=== PATIENT | male | born 1950 | race Caucasian/White ===

== ENCOUNTER 2022-04-10 12:03 | Emergency (ER) | payer BC, MEDICARE, SELFPAY ==
[2022-04-10 12:08] VITALS: BP 158/71; PULSE 79; RESP 15; TEMP 36.8; O2SAT 96; BMI 27.6
[2022-04-10 13:05] LABS: Influenza A - CEPHEID Flu A NEGATIVE (NEGATIVE); Influenza B - CEPHEID Flu B NEGATIVE (NEGATIVE); Respiratory Syncytial Virus POSITIVE (Negative)
[2022-04-10 13:11] LABS: COVID-19 CEPHEID 4-PLEX PCR Negative (Negative)
--- NOTE | 2022-04-10 14:23 | ED_ITS ---
HPI - URI/Sore Throat <Hoa Resendiz, [facility] - Last Filed: 04/10/22 14:28> General Chief Complaint: Upper Respiratory Symptoms Stated Complaint: cough/nausea/head pain x3 days Time Seen by Provider: 04/10/22 12:08 Source: patient Mode of arrival: Ambulatory History of Present Illness HPI Narrative: This is a 72-year-old male with history of pneumonia 3 times, states that he has felt ?like garbage ?for the last 3 days and is concerned that he might have an upper respiratory infection from his grandson. Patient is here with his daughter, states he has a history of hypertension, is not anticoagulated. States that he is otherwise healthy and has had a cough, nausea and a headache for the last 3 days. He denies vomiting, he denies chest pain or shortness of breath, he states that he feels more tired than usual and is coughing frequently, has nasal congestion without sinus tenderness, no difficulty swallowing, is a nonsmoker, denies any lightheadedness or dizziness. Denies any abdominal pain, dysuria, or weakness. He denies fevers but is dressed in a jacket with 2 shirts underneath and sitting in the sun and feels warm to touch he was afebrile 2-1/2 hours ago when he was triaged. Related Data Home Medications Medication Instructions Recorded Confirmed atenolol 25 mg tablet 25 mg PO BID 02/25/22 terazosin 2 mg capsule 2 mg PO BID 02/25/22 Previous Rx's Medication Instructions Recorded amlodipine 10 mg tablet 10 mg PO DAILY #60 tabs 04/08/22 famotidine 40 mg tablet 40 mg PO BID #60 tabs 04/08/22 hydrocodone 10 mg-acetaminophen 1 tab PO BID PRN pain #60 tabs 04/08/22 325 mg tablet lisinopril 20 mg tablet 20 mg PO DAILY #60 tabs 04/08/22 lisinopril 40 mg tablet 40 mg PO DAILY #60 tabs 04/08/22 albuterol sulfate 2.5 mg/3 mL 2.5 mg (3 mL) inhalation Q6H PRN 04/10/22 (0.083 %) solution for nebulization shortness of breath or wheezing #75 mL cetirizine 10 mg tablet 10 mg PO DAILY PRN allergy 04/10/22 symptoms #30 tabs prednisone 20 mg tablet 40 mg PO DAILY 5 days #10 tabs 04/10/22 Allergies Allergy/AdvReac Type Severity Reaction Status Date / Time Penicillins Allergy Verified 04/10/22 12:08 anti inflammatories Allergy Uncoded 04/10/22 12:08 Review of Systems <REBECCA Holm - Last Filed: 04/10/22 14:28> Review of Systems Narrative: Review of systems is negative for acute abnormalities unless otherwise noted in HPI Patient History <REBECCA Holm - Last Filed: 04/10/22 14:28> Social History Smoking Status: Unknown if ever smoked Smoking Status: Unknown if ever smoked alcohol intake frequency: holidays/special occasions only Substance Use Type: does not use Exam <REBECCA Holm - Last Filed: 04/10/22 14:28> Narrative Exam Narrative: Reviewed vitals signs and nursing notes. General: cooperative, comfortable, in no acute distress, well groomed, over demond ssed for sitting in the sun any jacket, 2 shirts, is warm to touch, HEENT: symmetrical facial expressions, moist mucous membranes, congested, endorses productive cough, no upper airway noise or stridor, posterior pharynx with mild erythema Cardiovascular: mildly tachycardic with a rate in the mid 90s, S1-S2 without murmur no peripheral edema, warm extremities Respiratory: normal effort, able to speak in complete sentences, without wheezing, stridor, or abnormal breath sounds. No retractions or tachypnea. Patient does have a cough, lightly wet, breath sounds anterior and the posteriorly are clear GI: abdomen soft, nontender to palpation, nondistended, without masses, rebound tenderness or exquisite tenderness with exam. MSK: moves all extremities, neurovascularly intact, no weakness, normal tone Skin: brisk capillary refill, without pallor or erythema Neuro: normal speech and cognition, A&O x3, ambulatory, clear speech Psych: mental status is grossly normal, congruent mood, normal affect, pleasant and cooperative Initial Vital Signs Initial Vital Signs: Vital Signs Temperature 98.3 F 04/10/22 12:08 Pulse Rate 79 04/10/22 12:08 Respiratory Rate 15 04/10/22 12:08 Blood Pressure 158/71 H 04/10/22 12:08 Pulse Oximetry 96 04/10/22 12:08 Oxygen Delivery Method 04/10/22 12:08 <Unique Luke MD - Last Filed: 04/11/22 18:33> Initial Vital Signs Initial Vital Signs: Vital Signs Temperature 98.3 F 04/10/22 12:08 Pulse Rate 79 04/10/22 12:08 Respiratory Rate 15 04/10/22 12:08 Blood Pressure 158/71 H 04/10/22 12:08 Pulse Oximetry 96 04/10/22 12:08 Oxygen Delivery Method 04/10/22 12:08 Course <REBECCA Holm - Last Filed: 04/10/22 14:28> Orders Ordered: ED Orders 04/10/22 12:12 Covid-19 + FLU A/B + RSV - PCR Stat Vital Signs Vital signs: Vital Signs - 8 hr 04/10/22 12:08 Temperature 98.3 F Pulse Rate 79 Respiratory Rate 15 Blood Pressure 158/71 H Pulse Oximetry 96 Oxygen Delivery Method Room Air <Unique Luke MD - Last Filed: 04/11/22 18:33> Orders Ordered: ED Orders 04/10/22 12:12 Covid-19 + FLU A/B + RSV - PCR Stat Vital Signs Vital signs: Vital Signs - 8 hr 04/10/22 12:08 Temperature 98.3 F Pulse Rate 79 Respiratory Rate 15 Blood Pressure 158/71 H Pulse Oximetry 96 Oxygen Delivery Method Room Air MDM - URI/Sore Throat <REBECCA Holm - Last Filed: 04/10/22 14:28> Lab Data Labs: Lab Results 04/10/22 Range/Units 12:12 SARS-CoV-2 (PCR) Negative (Negative) Influenza A (RT-PCR) Flu a negative (NEGATIVE) Influenza B (RT-PCR) Flu b negative (NEGATIVE) RSV (PCR) Positive A (Negative) MDM Narrative Medical decision making narrative: This is a 72-year-old male who presents to the emergency department with a cough, congestion, nausea, and headache for the last 3 days. He is nontoxic appearing, without hypoxia, tachypnea, abnormal breath sounds, weakness, or shortness of breath. His respiratory panel is positive for RSV. Patient's daughter states that his grandson had RSV last week patient states he is staying well hydrated. Has a cough, breath sounds are clear throughout without wheezing or increased effort. Patient is concerned about his history with pneumonia, states that he has not nebulizer machine at home and he has been using his albuterol nebulizer which has helped him. I refilled his albuterol nebulizer, gave him a prescription of prednisone for the next 5 days, Zyrtec, encouraged hydration, antipyretics, discuss dosing of his Tylenol to match his hydrocodone so that he does not overdose on Tylenol. He has an allergy to NSAIDs and this is another reason why I opted to treat him with prednisone. He has Flonase at home as well as Mucinex, we will be treating his symptoms accordingly and understands to return to the emergency department for any worsening. Patient is appropriate and amenable to discharge home. Vital signs are stable on repeat examination is unremarkable. Patient has been informed of results. Patient has been given strict return to ER precautions for any new or worsening symptoms. Patient understands to follow up closely with outpatient providers as instructed. Patient understands plan and agrees to discharge home. All questions and concerns answered at this time. <Unique Luke MD - Last Filed: 04/11/22 18:33> Lab Data Labs: Lab Results 04/10/22 Range/Units 12:12 SARS-CoV-2 (PCR) Negative (Negative) Influenza A (RT-PCR) Flu a negative (NEGATIVE) Influenza B (RT-PCR) Flu b negative (NEGATIVE) RSV (PCR) Positive A (Negative) Discharge Plan Departure Patient Disposition: Home Clinical Impression: RSV infection Instructions: DI for Respiratory Syncytial Virus -- Adults Activity Restrictions/Additional Instructions: *You have been diagnosed with RSV I have refilled your albuterol nebulizers, use your [place] as needed for your pain, please take a total of 650 mg of Tylenol every 6 hours, your [place] has 325 mg in it. Please stay hydrated, use Mucinex for productive cough, Flonase for congestion, and start taking Zyrtec in the evening for congestion and runny nose. Schedule a follow-up appointment with her primary care provider as needed, come back to the emergency department if you have worsening, your symptoms should start to resolve in the next day or 2. Please come back if you have fever, chills, concern for pneumonia. Please clear your sinuses as best as you can, use saline nasal spray and I hope that you feel better soon. *What to do: *Please continue to take your regular medications as directed. [ x] New medication prescriptions sent to your pharmacy: [[facility] ] [ ] New medication written as a paper prescription [ ] No new medications given *Please follow up with your primary care provider in 2-3 days, call for an appointment. Let them know you were seen in the Emergency Department and that we asked that you be seen for follow-up. We will electronically transmit a record of today's note if your PCP is in our system *If you do not have a primary care provider please contact [phone] to establish care with one of the [facility] primary care providers. *Return to Emergency Department if you should have any new, worsening, or conc erning symptoms, such as [fever greater than 101F, chills, worsening pain, persistent vomiting or other bothersome symptoms]. Prescriptions: New albuterol sulfate 2.5 mg /3 mL (0.083 %) solution for nebulization 2.5 mg inhalation Q6H PRN (Reason: shortness of breath or wheezing) Qty: 75 1RF prednisone 20 mg tablet 40 mg PO DAILY 5 Days Qty: 10 0RF cetirizine 10 mg tablet 10 mg PO DAILY PRN (Reason: allergy symptoms) Qty: 30 0RF No Action atenolol 25 mg tablet 25 mg PO BID terazosin 2 mg capsule 2 mg PO BID famotidine 40 mg tablet 40 mg PO BID Qty: 60 0RF lisinopril 40 mg tablet 40 mg PO DAILY Qty: 60 0RF Rx Instructions: 20 mg in the am and 40 mg in the evening lisinopril 20 mg tablet 20 mg PO DAILY Qty: 60 0RF amlodipine 10 mg tablet 10 mg PO DAILY Qty: 60 0RF hydrocodone-acetaminophen 10-325 mg tablet 1 tab PO BID PRN (Reason: pain) Qty: 60 0RF Visit Report Forms: Patient Portal/API <Unique Luke MD - Last Filed: 04/11/22 18:33> [facility] Attestation: I was immediately available in the department for consultation throughout this patient's visit. I agree with documentation as above. Unique Luke MD
== END 2022-04-10 14:24 | disposition home or self-care (01) ==
PROVIDERS: Emergency Medicine; Emergency Provider Nurse Practitioner Critical Care Medicine
DX: J06.9 Acute upper respiratory infection, unspecified (principal); B97.4 Respiratory syncytial virus as the cause of diseases classified elsewhere
CPT/HCPCS: 0241U; 99281; 99282

== ENCOUNTER 2022-04-15 16:54 | Observation (INO) | payer BC, SELFPAY ==
[2022-04-15] VITALS (28 sets, daily range): BP systolic 111–193; BP diastolic 56–88; PULSE 73–99; RESP 18–29; TEMP 37.3–39.7; O2SAT 90–96; BMI 27.6
--- NOTE | 2022-04-15 17:28 | DI.RAD.S_ITS ---
PROCEDURE: XR CHEST 1V INDICATIONS: suspected sepsis TECHNIQUE: One view of the chest was acquired. COMPARISON: None. FINDINGS: Surgical changes and devices: None. Lungs and pleura: Bilateral interstitial infiltrates suspicious for interstitial pneumonia. No pleural effusions or pneumothorax. Mediastinum: Mediastinal contours appear normal. Heart size is normal. Bones and chest wall: Old left 6th rib fracture is noted. No suspicious bony lesions. Overlying soft tissues appear unremarkable. IMPRESSION: Bilateral interstitial infiltrates suspicious for interstitial pneumonia. Dictated by: Lizzy Gan M.D. on 04/15/2022 at 18:37 Approved by: Lizzy Gan M.D. on 04/15/2022 at 18:37
[2022-04-15] MEDS: ACETAMINOPHEN 325 MG TABLET 975 MG PO (17:34)
[2022-04-15 18:07] LABS: INR 1.2 (0.9-1.3); Prothrombin Time 13.5 SECONDS (10.1-12.7)
[2022-04-15 18:09] LABS: PTT Partial Thromboplastin Tim 31 SECONDS (26-36)
[2022-04-15 18:11] LABS: Lactate (Lactic Acid) 1.5 mmol/L (0.7-2.1)
[2022-04-15 18:12] LABS: Alanine Aminotransferase 25 IU/L (<50); Albumin Globulin Ratio 1.1 (1.0-2.8); Alkaline Phosphatase 57 U/L (38-126); Aspartate Aminotransferase 19 IU/L (17-59); BUN Creatinine Ratio 14.3 (6-22); Bilirubin Total 0.5 mg/dL (0.2-1.3); Blood Urea Nitrogen 11 mg/dL (9-20); Carbon Dioxide 25 mmol/L (22-32); Chloride 99 mmol/L (98-107); Estimated Glomerular Filt Rate > 60 mL/min (>60); Globulin 3.6 g/dL (1.7-4.1); Glucose 133 mg/dL (80-110); HEMOLYSIS 16 (0-50); Lipase 49 U/L (23-300); Potassium 3.4 mmol/L (3.4-5.1); Sodium 136 mmol/L (137-145); Total Protein 7.6 g/dL (6.3-8.2)
[2022-04-15 18:23] LABS: Add Manual Diff / Slide Review NO; Basophils Absolute Auto 0 /uL (0-100); Basophils Percent Auto 0.4 % (0-2); Eosinophils Absolute Auto 100 /uL (0-450); Eosinophils Percent Auto 0.8 % (2-4); Hematocrit 38.3 % (41-53); Hemoglobin 13.1 g/dL (13.5-17.5); Lymphocytes Absolute Auto 1200 /uL (1100-4500); Mean Corpuscular HGB Conc 34.2 % (30-36); Mean Corpuscular Hemoglobin 30.4 PG (26-34); Mean Corpuscular Volume 88.8 fL (80-100); Monocytes Absolute Auto 900 /uL (0-900); Monocytes Percent Auto 8.6 % (3-14); Neutrophils Absolute Auto 8000 /uL (1500-7000); Neutrophils Percent Auto 78.2 % (50-75); Platelet Count 194 X10^3/uL (150-400); Red Blood Cell Count 4.31 X10^6/uL (4.5-5.9); White Blood Cell Count 10.2 X10^3/uL (4.5-11.0)
[2022-04-15 18:29] LABS: Procalcitonin 0.06 ng/mL (<0.5)
[2022-04-15 19:26] LABS: Influenza A - CEPHEID Flu A NEGATIVE (NEGATIVE); Influenza B - CEPHEID Flu B NEGATIVE (NEGATIVE); Respiratory Syncytial Virus POSITIVE (Negative)
[2022-04-15 19:27] LABS: COVID-19 CEPHEID 4-PLEX PCR Negative (Negative)
--- NOTE | 2022-04-15 19:28 | PC.NURSE ---
pt lying on stretcher appears tired, c/o eyes being matted, white matting noted in eyes, pt without further c/o at this time daughter at bedside pt waiting results and disposition
--- NOTE | 2022-04-15 19:56 | ED_ITS ---
HPI - General Adult General Chief complaint: Fever Stated complaint: RSV is getting worse Time Seen by Provider: 04/15/22 19:23 Source: patient Mode of arrival: Ambulatory History of Present Illness HPI narrative: 72-year-old gentleman with history of mild COPD, hypertension, reflux was recently diagnosed with RSV and over the last 7 days he is had cough however today things have gotten significantly worse and he describes a ?weird feeling? in his chest that he noticed as of this morning with increasing chills and productive cough over the course of the day. He is having some mild diarrhea. This evening he is noticing discharge from both eyes. He states it is wheezing seems to be a bit worse and his cough is clearly now productive. He notes that when he does get viruses he does tend to get pneumonias, was admitted to the [facility] about a year ago for similar findings. He describes fatigue but no significant headache, no palpitations. Notes that his left leg has chronically been more swollen than the right for a number of years with no etiology clearly identified with workup as an outpatient. He is had no acute neurologic changes and complains of overall fatigue. Related Data Home Medications Medication Instructions Recorded Confirmed atenolol 25 mg tablet 25 mg PO BID 02/25/22 terazosin 2 mg capsule 2 mg PO BID 02/25/22 Previous Rx's Medication Instructions Recorded amlodipine 10 mg tablet 10 mg PO DAILY #60 tabs 04/08/22 famotidine 40 mg tablet 40 mg PO BID #60 tabs 04/08/22 hydrocodone 10 mg-acetaminophen 1 tab PO BID PRN pain #60 tabs 04/08/22 325 mg tablet lisinopril 20 mg tablet 20 mg PO DAILY #60 tabs 04/08/22 lisinopril 40 mg tablet 40 mg PO DAILY #60 tabs 04/08/22 albuterol sulfate 2.5 mg/3 mL 2.5 mg (3 mL) inhalation Q6H PRN 04/10/22 (0.083 %) solution for nebulization shortness of breath or wheezing #75 mL cetirizine 10 mg tablet 10 mg PO DAILY PRN allergy 04/10/22 symptoms #30 tabs Allergies Allergy/AdvReac Type Severity Reaction Status Date / Time Penicillins Allergy Verified 04/10/22 12:08 anti inflammatories Allergy Uncoded 04/10/22 12:08 Review of Systems Review of Systems Narrative: Remainder of complete review of systems is otherwise unremarkable except for that included in the HPI. Patient History Medical History Acid reflux Arthritis BPH (benign prostatic hyperplasia) Emphysema (subcutaneous) (surgical) resulting from a procedure Hypertension Lung nodule Macular degeneration Social History Smoking Status: Unknown if ever smoked Smoking Status: Unknown if ever smoked alcohol intake frequency: holidays/special occasions only Substance Use Type: does not use Exam Initial Vital Signs Initial Vital Signs: Vital Signs Temperature 103.5 F H 04/15/22 17:25 Pulse Rate 97 H 04/15/22 17:25 Respiratory Rate 18 04/15/22 17:25 Blood Pressure 193/88 H 04/15/22 17:25 Pulse Oximetry 96 04/15/22 17:25 Oxygen Delivery Method 04/15/22 17:25 General: Moderately ill-appearing but Able to give a complete and coherent history. HEENT: Moist mucous membranes, mild discharge from both eyes with minimally injected sclera bilaterally. Neck: No JVD, supple Respiratory: Lungs with minor scattered wheeze, coarse breath sounds, no obvious rhonchi or consolidated findings. Cardiac: Regular rate and rhythm no murmurs no bruits Abdomen: Soft, nontender, good bowel tones, no flank pain Skin: Warm and dry, no rashes Neurologic: Globally weak but Grossly neurologically intact with no obvious asymmetries or abnormalities Extremities: No trauma, well perfused. Left leg significantly more swollen than right, chronic finding Psych: Fatigued but overall Cooperative, appropriate insight and affect Course Orders Ordered: ED Orders 04/15/22 17:28 XR chest 1V Stat EKG-12 Lead Stat RT Consult Eval and Treat NOW 04/15/22 17:45 BNP [NT-proBNP (BNP-Adult 18+)] Stat Complete Blood Count AUTO DIFF Stat Comprehensive Metabolic Panel Stat D Dimer Stat Lactate (Lactic Acid) Stat Lipase Stat Partial Thromboplastin Time Stat Procalcitonin Stat Prothrombin Time INR Stat Trop I [Troponin I] Stat 04/15/22 18:15 Blood Culture Stat 04/15/22 18:25 Blood Culture Stat Covid-19 + FLU A/B + RSV - PCR Stat 04/15/22 21:46 Sputum Culture Stat 04/15/22 21:49 CT angio chest PE protocol Stat Discontinued Medications Acetaminophen (Acetaminophen 325 Mg Tablet) 975 mg PO NOW ONE Stop: 04/15/22 17:31 Last Admin: 04/15/22 17:34 Dose: 975 mg Documented By: AMALIA Epinephrine HCl (Epinephrine 1 Mg/Ml) 0.3 mg IM NOW ONE Stop: 04/15/22 20:14 Last Admin: 04/15/22 21:07 Dose: Not Given Documented By: JOE Azithromycin 500 mg/ Dextrose 250 mls @ 250 mls/hr IV NOW ONE Stop: 04/15/22 19:58 Last Infusion: 04/15/22 23:23 Dose: 0 mls/hr Documented By: Admin: 04/15/22 21:58 Dose: 250 mls/hr Documented By: SKYLER Ceftriaxone Sodium 2,000 mg/ (Sodium Chloride) 100 mls @ 200 mls/hr IV NOW ONE Stop: 04/15/22 19:58 Last Infusion: 04/15/22 21:30 Dose: 0 mls/hr Documented By: Admin: 04/15/22 20:52 Dose: 200 mls/hr Documented By: JOE Midazolam HCl 50 mg/ Dextrose 250 mls @ 25 mls/hr IV TITRATE LADAN; Protocol Last Admin: 04/15/22 22:56 Dose: Not Given Documented By: SKYLER Vital Signs Vital signs: Vital Signs - 8 hr 04/15/22 17:25 04/15/22 17:34 04/15/22 18:19 Temperature 103.5 F H 103.5 F H Pulse Rate 97 H 99 H Respiratory Rate 18 Blood Pressure 193/88 H Pulse Oximetry 96 94 Oxygen Delivery Method Room Air 04/15/22 18:20 04/15/22 18:20 04/15/22 18:30 Temperature Pulse Rate 98 H Respiratory Rate 24 Blood Pressure 153/69 H 131/60 Pulse Oximetry 94 Oxygen Delivery Method 04/15/22 18:30 04/15/22 18:45 04/15/22 18:45 Temperature Pulse Rate 91 H 88 Respiratory Rate 20 19 Blood Pressure 132/66 Pulse Oximetry 92 91 Oxygen Delivery Method Room Air 04/15/22 19:00 04/15/22 19:00 04/15/22 19:28 Temperature 99.2 F Pulse Rate 85 Respiratory Rate 25 H Blood Pressure 118/59 L Pulse Oximetry 90 L Oxygen Delivery Method Room Air 04/15/22 19:57 04/15/22 19:15 04/15/22 19:15 Temperature 99.2 F Pulse Rate 82 Respiratory Rate 21 Blood Pressure 137/69 Pulse Oximetry 92 Oxygen Delivery Method 04/15/22 19:30 04/15/22 19:30 04/15/22 19:45 Temperature Pulse Rate 84 Respiratory Rate 22 Blood Pressure 135/65 125/69 Pulse Oximetry 92 Oxygen Delivery Method 04/15/22 19:45 04/15/22 20:00 04/15/22 20:00 Temperature Pulse Rate 79 73 Respiratory Rate 26 H 29 H Blood Pressure 129/63 Pulse Oximetry 91 91 Oxygen Delivery Method 04/15/22 20:15 04/15/22 20:15 04/15/22 20:30 Temperature Pulse Rate 86 Respiratory Rate 20 Blood Pressure 125/71 124/63 Pulse Oximetry 93 Oxygen Delivery Method 04/15/22 20:30 04/15/22 20:45 04/15/22 20:45 Temperature Pulse Rate 79 80 Respiratory Rate 21 21 Blood Pressure 133/65 Pulse Oximetry 92 92 Oxygen Delivery Method 04/15/22 21:00 04/15/22 21:00 04/15/22 21:15 Temperature Pulse Rate 78 Respiratory Rate 20 Blood Pressure 128/66 117/56 L Pulse Oximetry 92 Oxygen Delivery Method 04/15/22 21:15 04/15/22 21:30 04/15/22 21:30 Temperature Pulse Rate 76 79 Respiratory Rate 28 H 25 H Blood Pressure 111/58 L Pulse Oximetry 91 92 Oxygen Delivery Method 04/15/22 21:51 04/15/22 22:00 04/15/22 22:15 Temperature Pulse Rate 83 80 79 Respiratory Rate Blood Pressure Pulse Oximetry 95 93 94 Oxygen Delivery Method 04/15/22 22:30 04/15/22 22:45 04/15/22 23:00 Temperature Pulse Rate 78 78 87 Respiratory Rate Blood Pressure Pulse Oximetry 91 92 92 Oxygen Delivery Method 04/15/22 23:15 04/15/22 23:30 Temperature Pulse Rate 85 81 Respiratory Rate Blood Pressure Pulse Oximetry 94 92 Oxygen Delivery Method Medical Decision Making Lab Data Result diagrams: 04/15/22 17:45 04/15/22 17:45 Labs: Lab Results 04/15/22 04/15/22 04/15/22 Range/Units 17:45 17:45 17:45 WBC 10.2 (4.5-11.0) X10^3/uL RBC 4.31 L (4.5-5.9) X10^6/uL Hgb 13.1 L (13.5-17.5) g/dL Hct 38.3 L (41-53) % MCV 88.8 (80-100) fL MCH 30.4 (26-34) PG MCHC 34.2 (30-36) % RDW 13.0 (11.6-14.8) % Plt Count 194 (150-400) X10^3/uL Neut % (Auto) 78.2 H (50-75) % Lymph % (Auto) 12.0 L (25-40) % [place] % (Auto) 8.6 (3-14) % Eos % (Auto) 0.8 L (2-4) % Baso % (Auto) 0.4 (0-2) % Neut # (Auto) 8000 H (8995-0823) /uL Lymph # (Auto) 1200 (7157-8269) /uL [place] # (Auto) 900 (0-900) /uL Eos # (Auto) 100 (0-450) /uL Baso # (Auto) 0 (0-100) /uL PT 13.5 H (10.1-12.7) SECONDS INR 1.2 (0.9-1.3) APTT 31 (26-36) SECONDS D-Dimer (<500) ng/ml Sodium 136 L (137-145) mmol/L Potassium 3.4 (3.4-5.1) mmol/L Chloride 99 (98-107) mmol/L Carbon Dioxide 25 (22-32) mmol/L BUN 11 (9-20) mg/dL Creatinine 0.77 (0.66-1.25) mg/dL Estimated GFR > 60 (>60) mL/min BUN/Creatinine Ratio 14.3 (6-22) Glucose 133 H (80-110) mg/dL Lactate (0.7-2.1) mmol/L Calcium 9.0 (8.4-10.2) mg/dL Total Bilirubin 0.5 (0.2-1.3) mg/dL AST 19 (17-59) IU/L ALT 25 (<50) IU/L Alkaline Phosphatase 57 (38-126) U/L Troponin I (0.01-0.034) ng/mL NT-Pro-B Natriuret Pep (<125) pg/mL Total Protein 7.6 (6.3-8.2) g/dL Albumin 4.0 (3.5-5.0) g/dL Globulin 3.6 (1.7-4.1) g/dL Albumin/Globulin Ratio 1.1 (1.0-2.8) Lipase 49 (23-300) U/L Procalcitonin 0.06 (<0.5) ng/mL SARS-CoV-2 (PCR) (Negative) Influenza A (RT-PCR) (NEGATIVE) Influenza B (RT-PCR) (NEGATIVE) RSV (PCR) (Negative) 04/15/22 04/15/22 04/15/22 Range/Units 17:45 17:45 17:45 WBC (4.5-11.0) X10^3/uL RBC (4.5-5.9) X10^6/uL Hgb (13.5-17.5) g/dL Hct (41-53) % MCV (80-100) fL MCH (26-34) PG MCHC (30-36) % RDW (11.6-14.8) % Plt Count (150-400) X10^3/uL Neut % (Auto) (50-75) % Lymph % (Auto) (25-40) % [place] % (Auto) (3-14) % Eos % (Auto) (2-4) % Baso % (Auto) (0-2) % Neut # (Auto) (4563-4107) /uL Lymph # (Auto) (7064-0179) /uL [place] # (Auto) (0-900) /uL Eos # (Auto) (0-450) /uL Baso # (Auto) (0-100) /uL PT (10.1-12.7) SECONDS INR (0.9-1.3) APTT (26-36) SECONDS D-Dimer 882 H (<500) ng/ml Sodium (137-145) mmol/L Potassium (3.4-5.1) mmol/L Chloride (98-107) mmol/L Carbon Dioxide (22-32) mmol/L BUN (9-20) mg/dL Creatinine (0.66-1.25) mg/dL Estimated GFR (>60) mL/min BUN/Creatinine Ratio (6-22) Glucose (80-110) mg/dL Lactate 1.5 (0.7-2.1) mmol/L Calcium (8.4-10.2) mg/dL Total Bilirubin (0.2-1.3) mg/dL AST (17-59) IU/L ALT (<50) IU/L Alkaline Phosphatase (38-126) U/L Troponin I < 0.012 (0.01-0.034) ng/mL NT-Pro-B Natriuret Pep 680 H (<125) pg/mL Total Protein (6.3-8.2) g/dL Albumin (3.5-5.0) g/dL Globulin (1.7-4.1) g/dL Albumin/Globulin Ratio (1.0-2.8) Lipase (23-300) U/L Procalcitonin (<0.5) ng/mL SARS-CoV-2 (PCR) (Negative) Influenza A (RT-PCR) (NEGATIVE) Influenza B (RT-PCR) (NEGATIVE) RSV (PCR) (Negative) 04/15/22 Range/Units 18:25 WBC (4.5-11.0) X10^3/uL RBC (4.5-5.9) X10^6/uL Hgb (13.5-17.5) g/dL Hct (41-53) % MCV (80-100) fL MCH (26-34) PG MCHC (30-36) % RDW (11.6-14.8) % Plt Count (150-400) X10^3/uL Neut % (Auto) (50-75) % Lymph % (Auto) (25-40) % [place] % (Auto) (3-14) % Eos % (Auto) (2-4) % Baso % (Auto) (0-2) % Neut # (Auto) (6535-5434) /uL Lymph # (Auto) (3346-4681) /uL [place] # (Auto) (0-900) /uL Eos # (Auto) (0-450) /uL Baso # (Auto) (0-100) /uL PT (10.1-12.7) SECONDS INR (0.9-1.3) APTT (26-36) SECONDS D-Dimer (<500) ng/ml Sodium (137-145) mmol/L Potassium (3.4-5.1) mmol/L Chloride (98-107) mmol/L Carbon Dioxide (22-32) mmol/L BUN (9-20) mg/dL Creatinine (0.66-1.25) mg/dL Estimated GFR (>60) mL/min BUN/Creatinine Ratio (6-22) Glucose (80-110) mg/dL Lactate (0.7-2.1) mmol/L Calcium (8.4-10.2) mg/dL Total Bilirubin (0.2-1.3) mg/dL AST (17-59) IU/L ALT (<50) IU/L Alkaline Phosphatase (38-126) U/L Troponin I (0.01-0.034) ng/mL NT-Pro-B Natriuret Pep (<125) pg/mL Total Protein (6.3-8.2) g/dL Albumin (3.5-5.0) g/dL Globulin (1.7-4.1) g/dL Albumin/Globulin Ratio (1.0-2.8) Lipase (23-300) U/L Procalcitonin (<0.5) ng/mL SARS-CoV-2 (PCR) Negative (Negative) Influenza A (RT-PCR) Flu a negative (NEGATIVE) Influenza B (RT-PCR) Flu b negative (NEGATIVE) RSV (PCR) Positive A (Negative) Imaging Data Chest x-ray: Radiologist's Impression: FINDINGS:? ? Surgical changes and devices:? None.? ? Lungs and pleura:? Bilateral interstitial infiltrates suspicious for interstitial pneumonia.? No pleural effusions or pneumothorax.? ? Mediastinum:? Mediastinal contours appear normal.? Heart size is normal.? ? Bones and chest wall:? Old left 6th rib fracture is noted.? No suspicious bony lesions.? Overlying soft tissues appear unremarkable.? ? IMPRESSION:? Bilateral interstitial infiltrates suspicious for interstitial pneumonia. ? ? Dictated by: Lizzy Gan M.D. on 04/15/2022 at 18:37 ? ? CT PE study: Radiologist's Impression: FINDINGS:? Image quality:? Excellent.? ? Pulmonary arteries:? Pulmonary arteries demonstrate no intraluminal filling defects to suggest central pulmonary embolism.? ? Lower Neck: No lymphadenopathy by size criteria. Thyroid:? Visualized thyroid demonstrates no discrete nodules. Axillae: No lymphadenopathy by size criteria. Chest Wall:? Unremarkable.? Bones: Visualized osseous structures demonstrate no suspicious lesions. ? Lungs and Airways:? There are moderate centrilobular and paraseptal emphysematous changes.? Bilateral patchy areas of indistinct ground-glass opacity are demonstrated with a basilar predominance.? Findings likely represent pneumonia.? There is a small nodule with mildly spiculated margins in the left lower lobe adjacent to the major fissure measuring 0.7 cm on series 5, image 152. An additional left lower lobe nodule measuring up to 0.7 cm is also demonstrated on series 5, image 161.? There is mild bronchial wall thickening also demonstrated in the lung bases.? The trachea and central airways are patent. Pleura: No pneumothorax or pleural effusions.? ? Heart: Heart size is normal.? No pericardial effusion. Thoracic Vessels: The thoracic aorta is normal in size.? Mediastinum and Mally:? There are mildly enlarged mediastinal and hilar lymph nodes including a right hilar node measuring up to 1.4 cm in short axis on series 4, image 79. Esophagus: No wall thickening. No hiatal hernia. ? Abdomen:? Visualized upper abdomen demonstrates multiple calcified gallstones in the region of the gallbladder neck.? No associated gallbladder wall thickening or pericholecystic fluid. ? IMPRESSION:? ? 1. No evidence of pulmonary embolism. ? 2. Bilateral patchy areas of indistinct ground-glass opacity most likely represents pneumonia.? The differential includes inflammatory processes such as hypersensitivity pneumonitis. ? 3. Small left lower lobe pulmonary nodules.? The findings are nonspecific and may also reflect an infectious or inflammatory process but a neoplasm cannot be excluded.? Recommend follow-up CT in 6 months to demonstrate resolution or stability. ? 4. Moderate centrilobular and paraseptal emphysematous changes. ? 5. Cholelithiasis within the visualized upper abdomen without CT evidence of cholecystitis.? ? ? Dictated by: Jose Morris M.D. on 04/15/2022 at 22:53 ? ? MDM Narrative Medical decision making narrative: 72-year-old gentleman with recent RSV infection getting dramatically worse. Chest x-ray does suggest pneumonia alternate explanations including congestive heart failure, acute coronary syndrome, pulmonary embolism ruled out. There is no evidence of pneumothorax. Of note he does have a small left lower lobe pulmonary nodule with mildly spiculated margins. Patient was aware that he had a large mediastinal lymph node and they have been following this as an outpatient. With the worsening bacterial superinfection symptoms including newly productive cough, increasing fever increasing shortness of breath at the end of 2 weeks of RSV, I would like to admit him for bacterial pneumonia. His curb 65 score is 2 however he is overall weak and seems to be worsening rather than improving at this point. There are no signs of overt sepsis, severe r espiratory failure and I do not anticipate the need for intubation this evening.. Care is reviewed with the hospitalist service and patient will be admitted for treatment of his post viral bacterial pneumonia Discharge Plan Departure Patient Disposition: Admitted as Observation Clinical Impression: RSV infection, Bacterial pneumonia Admit Date/Time: 04/15/22 23:44 Admit Provider: Ja Andino
[2022-04-15 20:19] LABS: D Dimer 882 ng/ml (<500)
[2022-04-15 20:34] LABS: NT-proBNP (BNP-Adult 18+) 680 pg/mL (<125); Troponin I < 0.012 ng/mL (0.01-0.034)
[2022-04-15] MEDS: cefTRIAXone 2,000 MG in SODIUM CHLORIDE 0.9% 100 ML 200 MG IV (20:52)
--- NOTE | 2022-04-15 21:49 | DI.CT.S_ITS ---
PROCEDURE: CT ANGIO CHEST PE PROTOCOL INDICATIONS: cough, dyspnea, elevated d dimer TECHNIQUE: After the administration of intravenous contrast, 2 mm thick sections acquired from the pulmonary apices to the posterior costophrenic angles. 3-dimensional maximum intensity projection (MIP) coronal and sagittal reformats were then acquired through the thorax. For radiation dose reduction, the following was used: automated exposure control, adjustment of mA and/or kV according to patient size. COMPARISON: [facility], CR, XR CHEST 1V, 04/15/2022, 17:42. FINDINGS: Image quality: Excellent. Pulmonary arteries: Pulmonary arteries demonstrate no intraluminal filling defects to suggest central pulmonary embolism. Lower Neck: No lymphadenopathy by size criteria. Thyroid: Visualized thyroid demonstrates no discrete nodules. Axillae: No lymphadenopathy by size criteria. Chest Wall: Unremarkable. Bones: Visualized osseous structures demonstrate no suspicious lesions. Lungs and Airways: There are moderate centrilobular and paraseptal emphysematous changes. Bilateral patchy areas of indistinct ground-glass opacity are demonstrated with a basilar predominance. Findings likely represent pneumonia. There is a small nodule with mildly spiculated margins in the left lower lobe adjacent to the major fissure measuring 0.7 cm on series 5, image 152. An additional left lower lobe nodule measuring up to 0.7 cm is also demonstrated on series 5, image 161. There is mild bronchial wall thickening also demonstrated in the lung bases. The trachea and central airways are patent. Pleura: No pneumothorax or pleural effusions. Heart: Heart size is normal. No pericardial effusion. Thoracic Vessels: The thoracic aorta is normal in size. Mediastinum and Mally: There are mildly enlarged mediastinal and hilar lymph nodes including a right hilar node measuring up to 1.4 cm in short axis on series 4, image 79. Esophagus: No wall thickening. No hiatal hernia. Abdomen: Visualized upper abdomen demonstrates multiple calcified gallstones in the region of the gallbladder neck. No associated gallbladder wall thickening or pericholecystic fluid. IMPRESSION: 1. No evidence of pulmonary embolism. 2. Bilateral patchy areas of indistinct ground-glass opacity most likely represents pneumonia. The differential includes inflammatory processes such as hypersensitivity pneumonitis. 3. Small left lower lobe pulmonary nodules. The findings are nonspecific and may also reflect an infectious or inflammatory process but a neoplasm cannot be excluded. Recommend follow-up CT in 6 months to demonstrate resolution or stability. 4. Moderate centrilobular and paraseptal emphysematous changes. 5. Cholelithiasis within the visualized upper abdomen without CT evidence of cholecystitis. Dictated by: Jose Morris M.D. on 04/15/2022 at 22:53 Approved by: Jose Morris M.D. on 04/15/2022 at 23:09
[2022-04-15] MEDS: AZITHROMYCIN 500 MG in DEXTROSE 5% IN WATER 250 ML 250 MG IV (21:58)
[2022-04-16] VITALS (16 sets, daily range): BP systolic 122–166; BP diastolic 64–79; PULSE 63–101; RESP 16–20; TEMP 36.2–37.7; O2SAT 93–96; BMI 27.6
--- NOTE | 2022-04-16 00:25 | PM.HP.1 ---
History of Present Illness History of Present Illness Date Patient Seen: 04/16/22 Time Patient Seen: 12:30 Chief complaint: RSV is getting worse Narrative: Mr. Luna is a 72M with PMH COPD, previous smoker, HTN, who presents to the hospital with cough and shortness of breath. He presented to the hospital nearly a week ago with cough, chills, and was found to be RSV positive. He was able to be discharged and took steroids and nebulizers at home. He has not improved. He continues to have cough, worsening shortness of breath. Also notes intermittent diarrhea and discharged from both eyes. No chest pain. No abdominal pain or vomiting In the ED workup was done, vitals notable for temperature 103.5. Sats in the low 90s on room air. Labs notable for WBC 10.2, hgb 13.1, plts 94. Creatinine 0.77. Procal 0.06. Trop negative. Chest xray with bilateral interstitial infiltrates. CT chest with bilateral ground glass opacities and lung nodule. He was given antibiotics and admitted for further treatment. Family history: Father with COPD Patient History Medical History Acid reflux Arthritis BPH (benign prostatic hyperplasia) Emphysema (subcutaneous) (surgical) resulting from a procedure Hypertension Lung nodule Macular degeneration Family & Social History Safety & Behavioral: Feels Safe in Current Yes Environment Been Physically Hurt or No Threatened By a Person Tobacco & Substance use: Smoking Status Unknown if ever smoked alcohol intake frequency holiday/special occasion Substance Use Type does not use Meds Home Medications and Allergies Home Medications Medication Instructions Recorded Confirmed Type atenolol 25 mg tablet 25 mg PO BID 02/25/22 History terazosin 2 mg capsule 2 mg PO BID 02/25/22 History amlodipine 10 mg tablet 10 mg PO DAILY #60 tabs 04/08/22 Rx famotidine 40 mg tablet 40 mg PO BID #60 tabs 04/08/22 Rx hydrocodone 10 mg-acetaminophen 1 tab PO BID PRN pain #60 tabs 04/08/22 Rx 325 mg tablet lisinopril 20 mg tablet 20 mg PO DAILY #60 tabs 04/08/22 Rx lisinopril 40 mg tablet 40 mg PO DAILY #60 tabs 04/08/22 Rx albuterol sulfate 2.5 mg/3 mL 2.5 mg (3 mL) inhalation Q6H PRN 04/10/22 Rx (0.083 %) solution for nebulization shortness of breath or wheezing #75 mL cetirizine 10 mg tablet 10 mg PO DAILY PRN allergy 04/10/22 Rx symptoms #30 tabs Allergies Allergy/AdvReac Type Severity Reaction Status Date / Time Penicillins Allergy Verified 04/10/22 12:08 anti inflammatories Allergy Uncoded 04/10/22 12:08 Review of Systems Review of Systems Narrative: 14 systems reviewed and negative aside from what is noted in HPI Exam Vital Signs (past 8 hours): - 04/15/22 17:25 04/15/22 17:34 04/15/22 18:19 Temperature 103.5 F H 103.5 F H Pulse Rate 97 H 99 H Respiratory Rate 18 Blood Pressure 193/88 H Pulse Oximetry 96 94 Oxygen Delivery Method Room Air 04/15/22 18:20 04/15/22 18:20 04/15/22 18:30 Temperature Pulse Rate 98 H Respiratory Rate 24 Blood Pressure 153/69 H 131/60 Pulse Oximetry 94 Oxygen Delivery Method 04/15/22 18:30 04/15/22 18:45 04/15/22 18:45 Temperature Pulse Rate 91 H 88 Respiratory Rate 20 19 Blood Pressure 132/66 Pulse Oximetry 92 91 Oxygen Delivery Method Room Air 04/15/22 19:00 04/15/22 19:00 04/15/22 19:28 Temperature 99.2 F Pulse Rate 85 Respiratory Rate 25 H Blood Pressure 118/59 L Pulse Oximetry 90 L Oxygen Delivery Method Room Air 04/15/22 19:57 04/15/22 19:15 04/15/22 19:15 Temperature 99.2 F Pulse Rate 82 Respiratory Rate 21 Blood Pressure 137/69 Pulse Oximetry 92 Oxygen Delivery Method 04/15/22 19:30 04/15/22 19:30 04/15/22 19:45 Temperature Pulse Rate 84 Respiratory Rate 22 Blood Pressure 135/65 125/69 Pulse Oximetry 92 Oxygen Delivery Method 04/15/22 19:45 04/15/22 20:00 04/15/22 20:00 Temperature Pulse Rate 79 73 Respiratory Rate 26 H 29 H Blood Pressure 129/63 Pulse Oximetry 91 91 Oxygen Delivery Method 04/15/22 20:15 04/15/22 20:15 04/15/22 20:30 Temperature Pulse Rate 86 Respiratory Rate 20 Blood Pressure 125/71 124/63 Pulse Oximetry 93 Oxygen Delivery Method 04/15/22 20:30 04/15/22 20:45 04/15/22 20:45 Temperature Pulse Rate 79 80 Respiratory Rate 21 21 Blood Pressure 133/65 Pulse Oximetry 92 92 Oxygen Delivery Method 04/15/22 21:00 04/15/22 21:00 04/15/22 21:15 Temperature Pulse Rate 78 Respiratory Rate 20 Blood Pressure 128/66 117/56 L Pulse Oximetry 92 Oxygen Delivery Method 04/15/22 21:15 04/15/22 21:30 04/15/22 21:30 Temperature Pulse Rate 76 79 Respiratory Rate 28 H 25 H Blood Pressure 111/58 L Pulse Oximetry 91 92 Oxygen Delivery Method 04/15/22 21:51 04/15/22 22:00 04/15/22 22:15 Temperature Pulse Rate 83 80 79 Respiratory Rate Blood Pressure Pulse Oximetry 95 93 94 Oxygen Delivery Method 04/15/22 22:30 04/15/22 22:45 04/15/22 23:00 Temperature Pulse Rate 78 78 87 Respiratory Rate Blood Pressure Pulse Oximetry 91 92 92 Oxygen Delivery Method 04/15/22 23:15 04/15/22 23:30 04/15/22 23:45 Temperature Pulse Rate 85 81 80 Respiratory Rate Blood Pressure Pulse Oximetry 94 92 93 Oxygen Delivery Method 04/16/22 00:00 Temperature 99.9 F H Pulse Rate 76 Respiratory Rate Blood Pressure 141/67 H Pulse Oximetry 94 Oxygen Delivery Method Oxygen Delivery Method Room Air Narrative Exam Narrative: GEN: appears in respiratory distress HEENT: conjunctival injection, PERRL NECK: trachea midline, no JVD CV: regular rate and rhythm, no murmurs PULM: mild wheezing, increased work of breathing, coughing ABD: soft, nontender, nondistended, no organomegaly EXT: left leg swelling (chronic per patient) NEURO: awake, alert, oriented, with no focal deficits Objective Labs Result Diagrams: 04/15/22 17:45 04/15/22 17:45 Labs: Laboratory Results - last 24 hr 04/15/22 04/15/22 04/15/22 17:45 17:45 17:45 WBC 10.2 RBC 4.31 L Hgb 13.1 L Hct 38.3 L MCV 88.8 MCH 30.4 MCHC 34.2 RDW 13.0 Plt Count 194 Neut % (Auto) 78.2 H Lymph % (Auto) 12.0 L [place] % (Auto) 8.6 Eos % (Auto) 0.8 L Baso % (Auto) 0.4 Neut # (Auto) 8000 H Lymph # (Auto) 1200 [place] # (Auto) 900 Eos # (Auto) 100 Baso # (Auto) 0 PT 13.5 H INR 1.2 APTT 31 D-Dimer Sodium 136 L Potassium 3.4 Chloride 99 Carbon Dioxide 25 BUN 11 Creatinine 0.77 Estimated GFR > 60 BUN/Creatinine Ratio 14.3 Glucose 133 H Lactate Calcium 9.0 Total Bilirubin 0.5 AST 19 ALT 25 Alkaline Phosphatase 57 Troponin I NT-Pro-B Natriuret Pep Total Protein 7.6 Albumin 4.0 Globulin 3.6 Albumin/Globulin Ratio 1.1 Lipase 49 Procalcitonin 0.06 SARS-CoV-2 (PCR) Influenza A (RT-PCR) Influenza B (RT-PCR) RSV (PCR) 04/15/22 04/15/22 04/15/22 17:45 17:45 17:45 WBC RBC Hgb Hct MCV MCH MCHC RDW Plt Count Neut % (Auto) Lymph % (Auto) [place] % (Auto) Eos % (Auto) Baso % (Auto) Neut # (Auto) Lymph # (Auto) [place] # (Auto) Eos # (Auto) Baso # (Auto) PT INR APTT D-Dimer 882 H Sodium Potassium Chloride Carbon Dioxide BUN Creatinine Estimated GFR BUN/Creatinine Ratio Glucose Lactate 1.5 Calcium Total Bilirubin AST ALT Alkaline Phosphatase Troponin I < 0.012 NT-Pro-B Natriuret Pep 680 H Total Protein Albumin Globulin Albumin/Globulin Ratio Lipase Procalcitonin SARS-CoV-2 (PCR) Influenza A (RT-PCR) Influenza B (RT-PCR) RSV (PCR) 04/15/22 18:25 WBC RBC Hgb Hct MCV MCH MCHC RDW Plt Count Neut % (Auto) Lymph % (Auto) [place] % (Auto) Eos % (Auto) Baso % (Auto) Neut # (Auto) Lymph # (Auto) [place] # (Auto) Eos # (Auto) Baso # (Auto) PT INR APTT D-Dimer Sodium Potassium Chloride Carbon Dioxide BUN Creatinine Estimated GFR BUN/Creatinine Ratio Glucose Lactate Calcium Total Bilirubin AST ALT Alkaline Phosphatase Troponin I NT-Pro-B Natriuret Pep Total Protein Albumin Globulin Albumin/Globulin Ratio Lipase Procalcitonin SARS-CoV-2 (PCR) Negative Influenza A (RT-PCR) Flu a negative Influenza B (RT-PCR) Flu b negative RSV (PCR) Positive A Assessment & Plan Assessment & Plan narrative: 1. Acute COPD exacerbation from RSV pneumonia and possible bacterial pneumonia -RSV positive, with symptoms starting a week ago -symptoms now worsening with worse shortness of breath -chest xray shows infiltrates -possibility of bacterial infection as well -due to this will treat with levofloxacin -treat copd with steroids and nebulizers -supportive treatment for RSV infection 2. HTN -continue amlodipine, lisinopirl, and atenolol 3. Lung nodule -noted on CT scan -given smoking history some concern for malignancy -will need close follow up on discharge CODE: Full Proxy: Brittany Luna, I have utilized all available resources to reconcile the patient's home medications Time Spent With Patient Critical Care time: I spent a total of [] minutes of critical care time on this patient's care today; this time is exclusive of procedural time.
[2022-04-16] MEDS: levoFLOXacin 750 MG/150 ML PIGGYBACK 100 MG IV (01:07)
[2022-04-16] MEDS: ALBUTEROL/IPRATROPIUM 3 ML AMPUL INH ×5 (01:33→23:29)
[2022-04-16] MEDS: ACETAMINOPHEN 325 MG TABLET 650 MG PO ×3 (02:52→17:33)
[2022-04-16] MEDS: ENOXAPARIN 40 MG/0.4 ML SYRINGE SUBCUT (08:36)
[2022-04-16] MEDS: predniSONE 20 MG TABLET 40 MG PO (08:36)
[2022-04-16] MEDS: SODIUM CHLORIDE 0.9% FLUSH 10 ML IV ×2 (08:37→20:49)
--- NOTE | 2022-04-16 15:09 | PC.NURSE ---
Day shift: Pt tolerating 2L NC well. O2 94% and HR 84 at rest. He also states I think this oxygen is helping.
--- NOTE | 2022-04-16 15:42 | PC.NURSE ---
Day shift: Pt's Spouse in room for visit and support at this time. Instructed on gown and gloves procedure.
--- NOTE | 2022-04-16 17:23 | P.PN_ITS ---
Subjective Subjective Date Patient Seen: 04/16/22 Interval history: 72-year-old with underlying COPD, hypertension, and former tobacco dependence admitted last night with known respiratory syncytial virus infection, superimposed bacterial pneumonia, and COPD exacerbation. Patient reports today that he is feeling ?a hair better.He continues to feel quite short of breath. He states he is coughing summers sputum. Denies any chest pain. He is having diarrhea. He does complain of bilateral conjunctiva old discomfort. He also reports having discharge. Exam Vital Signs (past 8 hours): - 04/16/22 09:25 04/16/22 09:25 04/16/22 11:29 Temperature Pulse Rate 88 Respiratory Rate 20 Blood Pressure Pulse Oximetry 94 94 Oxygen Delivery Method Room Air Room Air Room Air Oxygen Flow Rate 04/16/22 12:13 04/16/22 13:22 Temperature 98.2 F Pulse Rate 101 H Respiratory Rate 18 Blood Pressure 130/72 Pulse Oximetry 93 94 Oxygen Delivery Method Nasal Cannula Oxygen Flow Rate 2 Oxygen Delivery Method Nasal Cannula Oxygen Flow Rate 2 Narrative Exam Narrative: GEN: Ill-appearing dyspneic middle-aged male, Alert and oriented x 3 HEENT:NC, Face symmetric, bilateral conjunctival injection CHEST: Respiratory excursions symmetric, coarse but CTAB CV: Mildly tachycardic with regular rhythm, no M/R/G ABD: Soft, NT/ND, BT present in all 4 quadrants, no organomegaly or masses EXTR: warm, well perfused, no C/C/E SKIN: warm and dry, no rash NEURO: Alert and oriented x 3, nonfocal Objective Labs Result Diagrams: 04/15/22 17:45 04/15/22 17:45 Labs: Laboratory Results - last 24 hr 04/15/22 04/15/22 04/15/22 17:45 17:45 17:45 WBC 10.2 RBC 4.31 L Hgb 13.1 L Hct 38.3 L MCV 88.8 MCH 30.4 MCHC 34.2 RDW 13.0 Plt Count 194 Neut % (Auto) 78.2 H Lymph % (Auto) 12.0 L [place] % (Auto) 8.6 Eos % (Auto) 0.8 L Baso % (Auto) 0.4 Neut # (Auto) 8000 H Lymph # (Auto) 1200 [place] # (Auto) 900 Eos # (Auto) 100 Baso # (Auto) 0 PT 13.5 H INR 1.2 APTT 31 D-Dimer Sodium 136 L Potassium 3.4 Chloride 99 Carbon Dioxide 25 BUN 11 Creatinine 0.77 Estimated GFR > 60 BUN/Creatinine Ratio 14.3 Glucose 133 H Lactate Calcium 9.0 Total Bilirubin 0.5 AST 19 ALT 25 Alkaline Phosphatase 57 Troponin I NT-Pro-B Natriuret Pep Total Protein 7.6 Albumin 4.0 Globulin 3.6 Albumin/Globulin Ratio 1.1 Lipase 49 Procalcitonin 0.06 SARS-CoV-2 (PCR) Influenza A (RT-PCR) Influenza B (RT-PCR) RSV (PCR) 04/15/22 04/15/22 04/15/22 17:45 17:45 17:45 WBC RBC Hgb Hct MCV MCH MCHC RDW Plt Count Neut % (Auto) Lymph % (Auto) [place] % (Auto) Eos % (Auto) Baso % (Auto) Neut # (Auto) Lymph # (Auto) [place] # (Auto) Eos # (Auto) Baso # (Auto) PT INR APTT D-Dimer 882 H Sodium Potassium Chloride Carbon Dioxide BUN Creatinine Estimated GFR BUN/Creatinine Ratio Glucose Lactate 1.5 Calcium Total Bilirubin AST ALT Alkaline Phosphatase Troponin I < 0.012 NT-Pro-B Natriuret Pep 680 H Total Protein Albumin Globulin Albumin/Globulin Ratio Lipase Procalcitonin SARS-CoV-2 (PCR) Influenza A (RT-PCR) Influenza B (RT-PCR) RSV (PCR) 04/15/22 18:25 WBC RBC Hgb Hct MCV MCH MCHC RDW Plt Count Neut % (Auto) Lymph % (Auto) [place] % (Auto) Eos % (Auto) Baso % (Auto) Neut # (Auto) Lymph # (Auto) [place] # (Auto) Eos # (Auto) Baso # (Auto) PT INR APTT D-Dimer Sodium Potassium Chloride Carbon Dioxide BUN Creatinine Estimated GFR BUN/Creatinine Ratio Glucose Lactate Calcium Total Bilirubin AST ALT Alkaline Phosphatase Troponin I NT-Pro-B Natriuret Pep Total Protein Albumin Globulin Albumin/Globulin Ratio Lipase Procalcitonin SARS-CoV-2 (PCR) Negative Influenza A (RT-PCR) Flu a negative Influenza B (RT-PCR) Flu b negative RSV (PCR) Positive A [facility] Medical History Acid reflux Arthritis BPH (benign prostatic hyperplasia) Emphysema (subcutaneous) (surgical) resulting from a procedure Hypertension Lung nodule Macular degeneration Social History household members: spouse Smoking Status: Former smoker alcohol intake: former Assessment & Plan Assessment & Plan narrative: Acute COPD exacerbation from RSV pneumonia and possible bacterial pneumonia Patient continues on prednisone 40 mg daily. He is receiving as needed DuoNebs. Will place on budesonide and formoterol. Continue empiric Levaquin. Bilateral patchy ground-glass opacities Likely pneumonia. Continue Levaquin. May be a combination of RSV and bacterial superinfection as noted. Currently stable in room air. Left lower lobe pulmonary nodules He is a former smoker. Will need a follow-up CT in 6 months. Bilateral conjunctivitis Ladder with my Santyl ointment Diarrhea Secondary to RSV infection more than likely. Will monitor and continue supportive care Hypertension Resume usual medications Code status Full Prophylaxis On Lovenox Disposition Pending Time Spent With Patient Critical Care time: I spent a total of [] minutes of critical care time on this patient's care today; this time is exclusive of procedural time. Quality VTE Deep Vein Thrombosis/Pulmonary Embolism Present on Admission: No
[2022-04-16] MEDS: ERYTHROMYCIN OPHTH 1 GM OINT 1 APPLIC EYE-BOTH ×2 (17:32→20:49)
[2022-04-16] MEDS: BUDESONIDE 0.5 MG/2 ML NEB INH (19:28)
[2022-04-17] VITALS (9 sets, daily range): BP systolic 134–156; BP diastolic 70–86; PULSE 76–110; RESP 16–20; TEMP 36.6–37.1; O2SAT 92–98
[2022-04-17] MEDS: levoFLOXacin 750 MG/150 ML PIGGYBACK 100 MG IV ×2 (00:01→23:49)
[2022-04-17] MEDS: ACETAMINOPHEN 325 MG TABLET 650 MG PO ×3 (06:36→20:29)
[2022-04-17 09:03] LABS: Add Manual Diff / Slide Review NO; Basophils Absolute Auto 0 /uL (0-100); Basophils Percent Auto 0.2 % (0-2); Eosinophils Absolute Auto 100 /uL (0-450); Eosinophils Percent Auto 1.1 % (2-4); Hematocrit 34.8 % (41-53); Hemoglobin 11.9 g/dL (13.5-17.5); Lymphocytes Absolute Auto 1100 /uL (1100-4500); Lymphocytes Percent Auto 12.1 % (25-40); Mean Corpuscular HGB Conc 34.2 % (30-36); Mean Corpuscular Hemoglobin 29.8 PG (26-34); Mean Corpuscular Volume 87.2 fL (80-100); Monocytes Absolute Auto 900 /uL (0-900); Monocytes Percent Auto 10.2 % (3-14); Neutrophils Absolute Auto 6800 /uL (1500-7000); Neutrophils Percent Auto 76.4 % (50-75); Platelet Count 203 X10^3/uL (150-400); Red Blood Cell Count 3.99 X10^6/uL (4.5-5.9); Red Cell Distribution Width 13.3 % (11.6-14.8); White Blood Cell Count 8.9 X10^3/uL (4.5-11.0)
[2022-04-17 09:14] LABS: BUN Creatinine Ratio 15.2 (6-22); Blood Urea Nitrogen 10 mg/dL (9-20); Calcium 8.6 mg/dL (8.4-10.2); Carbon Dioxide 28 mmol/L (22-32); Chloride 101 mmol/L (98-107); Estimated Glomerular Filt Rate > 60 mL/min (>60); Glucose 122 mg/dL (80-110); HEMOLYSIS < 15 (0-50); Potassium 3.2 mmol/L (3.4-5.1); Sodium 135 mmol/L (137-145)
[2022-04-17] MEDS: BUDESONIDE 0.5 MG/2 ML NEB INH ×2 (09:27→19:11)
[2022-04-17] MEDS: ALBUTEROL/IPRATROPIUM 3 ML AMPUL INH ×5 (09:27→23:18)
[2022-04-17] MEDS: ENOXAPARIN 40 MG/0.4 ML SYRINGE SUBCUT (09:57)
[2022-04-17] MEDS: predniSONE 20 MG TABLET 40 MG PO (09:58)
[2022-04-17] MEDS: ERYTHROMYCIN OPHTH 1 GM OINT 1 APPLIC EYE-BOTH ×2 (09:59→20:32)
--- NOTE | 2022-04-17 12:43 | CM.DANOTE ---
Initial DCP Assessment Note Pt is a 72 yo male, resident of [place], arrives to [facility] with worsening sx of a known RSV infection, admitted for medical management of Acute COPD exacerbation from RSV pneumonia and possible bacterial pneumonia PCP: Marv Haynes Payer: [facility] out of [facility] Reviewed chart, placed call into patient's room yesterday to introduce self and role. Patient admits he hopes to stay admitted longer for additional IV maintenance and medical management through this infection, says he has had pneumonia multiple times over the last few years and has a difficult time recovering. Patient lives w/spouse and will return to her care upon discharge; patient denies need for HH or other services at this time No barriers identified at this time to patient's safe discharge home w/family to assist; close outpatient f/u recommended. 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 No History Provided By Patient Prior Living Arrangements House Household Members spouse Type of transporation used prior to Drives own vehicle admit Independent with ADL's Yes Is patient alert and oriented? Yes Barriers to Discharge No Discharge Plan Home Transportation Arrangement Family Referrals Initiated None needed
--- NOTE | 2022-04-17 12:51 | PM.PN.1 ---
Subjective Subjective Interval history: 72-year-old with COPD, hypertension and former tobacco dependence who is presently hospital day 2. Admitted with RSV infection, superimposed bacterial pneumonia, and COPD exacerbation Patient reports he is feeling better today. He continues to be breathless and continues to have harsh episodes of coughing. He is not expectorating anything. His is present at bedside and expresses concern. She states that she is worried about him discharging home prematurely. They do live in [place] and have yet to be able to establish with a primary care provider. Exam Vital Signs (past 8 hours): - 04/17/22 06:27 04/17/22 09:27 04/17/22 12:04 Temperature 98.7 F Pulse Rate 88 76 88 Respiratory Rate 20 18 16 Blood Pressure 150/86 H Pulse Oximetry 93 94 93 Oxygen Delivery Method Room Air Room Air Oxygen Flow Rate 2 Fraction of Inspired Oxygen 94 Oxygen Delivery Method Room Air Oxygen Flow Rate 2 Narrative Exam Narrative: GEN:? Ill-appearing dyspneic middle-aged male, Alert and oriented x 3 HEENT:NC, Face symmetric, bilateral conjunctival injection improved today CHEST: Respiratory excursions symmetric, coarse bilaterally but clear CV:? Regular rate and rhythm, no M/R/G ABD: Soft, NT/ND, BT present in all 4 quadrants, no organomegaly or masses EXTR: warm, well perfused, no C/C/E SKIN: warm and dry, no rash NEURO: Alert and oriented x 3, nonfocal Objective Labs Result Diagrams: 04/17/22 08:37 04/17/22 08:37 Labs: Laboratory Results - last 24 hr 04/17/22 04/17/22 08:37 08:37 WBC 8.9 RBC 3.99 L Hgb 11.9 L Hct 34.8 L MCV 87.2 MCH 29.8 MCHC 34.2 RDW 13.3 Plt Count 203 Neut % (Auto) 76.4 H Lymph % (Auto) 12.1 L [place] % (Auto) 10.2 Eos % (Auto) 1.1 L Baso % (Auto) 0.2 Neut # (Auto) 6800 Lymph # (Auto) 1100 [place] # (Auto) 900 Eos # (Auto) 100 Baso # (Auto) 0 Sodium 135 L Potassium 3.2 L Chloride 101 Carbon Dioxide 28 BUN 10 Creatinine 0.66 Estimated GFR > 60 BUN/Creatinine Ratio 15.2 Glucose 122 H Calcium 8.6 PFSH Medical History Acid reflux Arthritis BPH (benign prostatic hyperplasia) Emphysema (subcutaneous) (surgical) resulting from a procedure Hypertension Lung nodule Macular degeneration Social History household members: spouse Smoking Status: Former smoker alcohol intake: former Assessment & Plan Assessment & Plan narrative: Acute COPD exacerbation from RSV pneumonia and possible bacterial pneumonia Patient continues on prednisone 40 mg daily.? He is receiving as needed DuoNebs.? Continue budesonide nebulizers. Continue empiric Levaquin. He is gradually improving. Bilateral patchy ground-glass opacities Likely pneumonia.? Continue Levaquin.? May be a combination of RSV and bacterial superinfection as noted.? Presently on 2 liters/minute of oxygen via nasal cannula. Left lower lobe pulmonary nodules He is a former smoker.? Will need a follow-up CT in 6 months. Bilateral conjunctivitis Continue erythromycin ointment Diarrhea Secondary to RSV infection more than likely.? Overall, improving Will monitor and continue supportive care Hypertension Resume usual medications Code status Full Prophylaxis On Lovenox Disposition Possible discharge home tomorrow if he has ongoing improvement Time Spent With Patient Critical Care time: I spent a total of [] minutes of critical care time on this patient's care today; this time is exclusive of procedural time. Quality VTE Deep Vein Thrombosis/Pulmonary Embolism Present on Admission: No
[2022-04-17] MEDS: POTASSIUM CHLORIDE 20 MEQ TAB 40 MEQ PO ×2 (13:21→18:21)
[2022-04-17] MEDS: BENZONATATE 100 MG CAPSULE PO (13:21)
[2022-04-17] MEDS: guaiFENesin ER 600 MG TAB PO (13:21)
[2022-04-17] MEDS: SODIUM CHLORIDE 0.9% FLUSH 10 ML IV ×2 (13:22→21:15)
[2022-04-18] VITALS (9 sets, daily range): BP systolic 119–150; BP diastolic 70–84; PULSE 65–84; RESP 18; TEMP 36.1–36.7; O2SAT 92–95
[2022-04-18] MEDS: MELATONIN 3 MG TABLET 6 MG PO ×2 (00:28→18:41)
[2022-04-18] MEDS: ENOXAPARIN 40 MG/0.4 ML SYRINGE SUBCUT (08:17)
[2022-04-18] MEDS: ACETAMINOPHEN 325 MG TABLET 650 MG PO ×2 (08:17→15:25)
[2022-04-18] MEDS: SODIUM CHLORIDE 0.9% FLUSH 10 ML IV ×2 (08:18→20:42)
[2022-04-18] MEDS: guaiFENesin ER 600 MG TAB PO (08:18)
[2022-04-18] MEDS: predniSONE 20 MG TABLET 40 MG PO (08:18)
[2022-04-18] MEDS: ERYTHROMYCIN OPHTH 1 GM OINT 1 APPLIC EYE-BOTH ×2 (08:22→20:23)
[2022-04-18] MEDS: BUDESONIDE 0.5 MG/2 ML NEB INH ×2 (08:54→19:49)
[2022-04-18] MEDS: ALBUTEROL/IPRATROPIUM 3 ML AMPUL INH ×3 (08:54→19:49)
[2022-04-18 11:29] LABS: BUN Creatinine Ratio 16.2 (6-22); Blood Urea Nitrogen 11 mg/dL (9-20); Calcium 9.1 mg/dL (8.4-10.2); Carbon Dioxide 26 mmol/L (22-32); Chloride 100 mmol/L (98-107); Estimated Glomerular Filt Rate > 60 mL/min (>60); Glucose 149 mg/dL (80-110); HEMOLYSIS < 15 (0-50); Potassium 4.3 mmol/L (3.4-5.1); Sodium 136 mmol/L (137-145)
[2022-04-18] MEDS: BENZONATATE 100 MG CAPSULE PO (15:24)
--- NOTE | 2022-04-18 16:37 | PM.PN.1 ---
Subjective Subjective Interval history: 72-year-old with COPD, hypertension and former tobacco dependence who is presently hospital day 3. Admitted with RSV infection, superimposed bacterial pneumonia, and COPD exacerbation Patient reports he is slightly improved again today. He is less breathless overall but continues to have harsh coughing episodes. Not producing any sputum. He reports he was not able to get much sleep last night secondary to his respiratory symptoms. No diarrhea since early yesterday morning. His appetite remains poor. Continues on oxygen at 2 liters/minute. Exam Vital Signs (past 8 hours): - 04/18/22 08:54 04/18/22 09:42 04/18/22 13:31 Temperature 98.1 F Pulse Rate 84 78 74 Respiratory Rate 18 18 18 Blood Pressure 140/84 Pulse Oximetry 95 92 95 Oxygen Delivery Method Room Air Room Air Oxygen Flow Rate 2 Fraction of Inspired Oxygen 94 Oxygen Delivery Method Room Air Oxygen Flow Rate 2 Narrative Exam Narrative: GEN:? Ill-appearing dyspneic middle-aged male, Alert and oriented x 3 HEENT:NC, Face symmetric, bilateral conjunctival injection nearly resolved CHEST: Respiratory excursions symmetric, coarse bilaterally but clear CV:? Regular rate and rhythm, no M/R/G ABD: Soft, NT/ND, BT present in all 4 quadrants, no organomegaly or masses EXTR: warm, well perfused, no C/C/E SKIN: warm and dry, no rash NEURO: Alert and oriented x 3, nonfocal Objective Labs Result Diagrams: 04/17/22 08:37 04/18/22 11:05 Labs: Laboratory Results - last 24 hr 04/18/22 11:05 Sodium 136 L Potassium 4.3 Chloride 100 Carbon Dioxide 26 BUN 11 Creatinine 0.68 Estimated GFR > 60 BUN/Creatinine Ratio 16.2 Glucose 149 H Calcium 9.1 PFSH Medical History Acid reflux Arthritis BPH (benign prostatic hyperplasia) Emphysema (subcutaneous) (surgical) resulting from a procedure Hypertension Lung nodule Macular degeneration Social History household members: spouse Smoking Status: Former smoker alcohol intake: former Assessment & Plan Assessment & Plan narrative: Acute COPD exacerbation from RSV pneumonia and possible bacterial pneumonia Patient continues on prednisone 40 mg daily.? He is received 3 doses. Will transition to 30 mg daily effective tomorrow morning. Continue DuoNebs q.i.d. and as needed.? Continue as needed Tessalon Marly. Also remains on budesonide nebulizers b.i.d. for RSV and COPD. The hospital does not carry Perforomist nebulizers. Continues Levaquin; convert from IV to p.o. today, presently day 3/5 of treatment.? He is gradually improving. Bilateral patchy ground-glass opacities Likely superimposed bacterial pneumonia.? Continue Levaquin.? Presently on 2 liters/minute of oxygen via nasal cannula. He does not use oxygen at baseline. Left lower lobe pulmonary nodules He is a former smoker.? Will need a follow-up CT in 6 months. Bilateral conjunctivitis Continue erythromycin ointment Diarrhea Secondary to RSV infection more than likely.? This appears to have resolved Hypertension Resume atenolol today. Will resume lisinopril at discharge Code status Full Prophylaxis On Lovenox Disposition Plan to dischareg home tomorrow on continued steroid taper and completing 5 day course of antibiotics Time Spent With Patient Critical Care time: I spent a total of [] minutes of critical care time on this patient's care today; this time is exclusive of procedural time. Quality VTE Deep Vein Thrombosis/Pulmonary Embolism Present on Admission: No
[2022-04-18] MEDS: HYDROCODONE/ACET 10/325 TABLET 1 TAB PO (18:41)
[2022-04-18] MEDS: levoFLOXacin 250 MG TABLET 750 MG PO (20:17)
[2022-04-18] MEDS: FAMOTIDINE 20 MG TABLET 40 MG PO (20:17)
[2022-04-18] MEDS: TERAZOSIN 1 MG CAPSULE 2 MG PO (20:17)
[2022-04-18] MEDS: atenoloL 25 MG TABLET PO (20:17)
[2022-04-19 00:23] VITALS: BP 138/81; PULSE 76; RESP 15; TEMP 36.3; O2SAT 97
--- NOTE | 2022-04-19 04:24 | PC.NURSE ---
Pt is AxOx4, independent in the room and cooperative. VSS, no c/o pain. Lungs clear and dinimished in all areas except bases on bilateral posterior crackles. Pt is still on 2L O2 and sats mid 90s. Continued droplet precaution. No other changes. Continue monitor.
[2022-04-19 04:56] VITALS: BP 119/93; PULSE 112; RESP 17; TEMP 35.9; O2SAT 97
[2022-04-19] MEDS: BENZONATATE 100 MG CAPSULE PO (05:26)
[2022-04-19] MEDS: ACETAMINOPHEN 325 MG TABLET 650 MG PO (05:26)
[2022-04-19 05:55] LABS: Add Manual Diff / Slide Review NO; Basophils Absolute Auto 0 /uL (0-100); Basophils Percent Auto 0.3 % (0-2); Eosinophils Absolute Auto 100 /uL (0-450); Eosinophils Percent Auto 0.9 % (2-4); Hematocrit 35.6 % (41-53); Hemoglobin 12.2 g/dL (13.5-17.5); Lymphocytes Absolute Auto 1900 /uL (1100-4500); Lymphocytes Percent Auto 24.9 % (25-40); Mean Corpuscular HGB Conc 34.3 % (30-36); Mean Corpuscular Volume 87.3 fL (80-100); Monocytes Absolute Auto 700 /uL (0-900); Monocytes Percent Auto 8.9 % (3-14); Neutrophils Absolute Auto 5000 /uL (1500-7000); Platelet Count 222 X10^3/uL (150-400); Red Blood Cell Count 4.08 X10^6/uL (4.5-5.9); Red Cell Distribution Width 13.6 % (11.6-14.8); White Blood Cell Count 7.7 X10^3/uL (4.5-11.0)
[2022-04-19 06:00] LABS: BUN Creatinine Ratio 18.3 (6-22); Blood Urea Nitrogen 13 mg/dL (9-20); Calcium 8.7 mg/dL (8.4-10.2); Carbon Dioxide 26 mmol/L (22-32); Chloride 103 mmol/L (98-107); Estimated Glomerular Filt Rate > 60 mL/min (>60); Glucose 115 mg/dL (80-110); HEMOLYSIS < 15 (0-50); Potassium 4.1 mmol/L (3.4-5.1); Sodium 138 mmol/L (137-145)
[2022-04-19 07:00] VITALS: O2SAT 95
[2022-04-19] MEDS: BUDESONIDE 0.5 MG/2 ML NEB INH (07:08)
[2022-04-19] MEDS: ALBUTEROL/IPRATROPIUM 3 ML AMPUL INH ×2 (07:08→15:10)
[2022-04-19 07:09] VITALS: PULSE 88; RESP 18; O2SAT 98
[2022-04-19] MEDS: FAMOTIDINE 20 MG TABLET 40 MG PO (07:59)
[2022-04-19] MEDS: HYDROCODONE/ACET 10/325 TABLET 1 TAB PO (07:59)
[2022-04-19] MEDS: TERAZOSIN 1 MG CAPSULE 2 MG PO (07:59)
[2022-04-19] MEDS: atenoloL 25 MG TABLET PO (07:59)
[2022-04-19] MEDS: guaiFENesin ER 600 MG TAB PO (07:59)
[2022-04-19] MEDS: ENOXAPARIN 40 MG/0.4 ML SYRINGE SUBCUT (08:00)
[2022-04-19] MEDS: ERYTHROMYCIN OPHTH 1 GM OINT 1 APPLIC EYE-BOTH (08:05)
--- NOTE | 2022-04-19 08:27 | PM.DS.1 ---
History of Present Illness History of Present Illness Date Patient Seen: 04/19/22 Time Patient Seen: 08:27 Chief complaint: RSV is getting worse Narrative: Per Dr. Andino, Mr. Luna is a 72M with PMH COPD, previous smoker, HTN, who presents to the hospital with cough and shortness of breath. He presented to the hospital nearly a week ago with cough, chills, and was found to be RSV positive. He was able to be discharged and took steroids and nebulizers at home. He has not improved. He continues to have cough, worsening shortness of breath. Also notes intermittent diarrhea and discharged from both eyes. No chest pain. No abdominal pain or vomiting In the ED workup was done, vitals notable for temperature 103.5. Sats in the low 90s on room air. Labs notable for WBC 10.2, hgb 13.1, plts 94. Creatinine 0.77. Procal 0.06. Trop negative. Chest xray with bilateral interstitial infiltrates. CT chest with bilateral ground glass opacities and lung nodule. He was given antibiotics and admitted for further treatment. Family history: Father with COPD Discharge Providers Provider Date of admission: 04/15/22 23:44 Discharge Date: 04/19/22 Primary care physician: Marv Haynes MD Discharge provider: Leonardo Crum DO Summary Hospital Course Discharge Diagnosis: Acute COPD exacerbation from RSV pneumonia and bacterial pneumonia Left lower lobe pulmonary nodules Bilateral conjunctivitis Diarrhea, resolved Hypertension Hospital Course: This is a 72 year old male admitted with COPD exacerbation secondary to RSV and superimposed bacterial pnuemonia. He improved slowly with steroids and antibiotics. Over the course of his stay his symptoms including dyspnea, weakness, conjunctivitis, and diarrhea improved. He was discharged home to complete therapy on 04/19/22. He was on supplemental oxygen overnight primarily, and his lowest oxygenation documented was 90%. On the day of discharge he was no longer requiring supplemental therapy to maintain O2 saturations above 89% given his COPD. He should follow up with his PCP as previously scheduled. There were some pulmonary nodules noted on CT imaging that are recommended to have 6 month follow up. Time Spent with Patient Time spent: Greater than 30 minutes Exam Vital Signs (past 8 hours): - 04/19/22 04:56 04/19/22 07:09 Temperature 96.7 F L Pulse Rate 112 H 88 Respiratory Rate 17 18 Blood Pressure 119/93 H Pulse Oximetry 97 98 Oxygen Delivery Method Nasal Cannula Oxygen Flow Rate 2 2 Fraction of Inspired Oxygen 28 Fraction of Inspired Oxygen 28 SaO2/FiO2 Ratio 350 Oxygen Delivery Method Nasal Cannula Oxygen Flow Rate 2 Narrative Exam Narrative: GEN:? Mildly Ill-appearing dyspneic middle-aged male, Alert and oriented x 3 HEENT:NC, Face symmetric, bilateral conjunctival injection nearly resolved CHEST: Respiratory excursions symmetric, coarse bilaterally but clear CV:? Regular rate and rhythm, no M/R/G ABD: Soft, NT/ND, BT present in all 4 quadrants, no organomegaly or masses EXTR: warm, well perfused, no C/C/E SKIN: warm and dry, no rash NEURO: Alert and oriented x 3, nonfocal Objective Labs Result Diagrams: 04/19/22 05:35 04/19/22 05:35 Labs: Laboratory Results - last 24 hr 04/18/22 04/19/22 04/19/22 11:05 05:35 05:35 WBC 7.7 RBC 4.08 L Hgb 12.2 L Hct 35.6 L MCV 87.3 MCH 30.0 MCHC 34.3 RDW 13.6 Plt Count 222 Neut % (Auto) 65.0 Lymph % (Auto) 24.9 L [place] % (Auto) 8.9 Eos % (Auto) 0.9 L Baso % (Auto) 0.3 Neut # (Auto) 5000 Lymph # (Auto) 1900 [place] # (Auto) 700 Eos # (Auto) 100 Baso # (Auto) 0 Sodium 136 L 138 Potassium 4.3 4.1 Chloride 100 103 Carbon Dioxide 26 26 BUN 11 13 Creatinine 0.68 0.71 Estimated GFR > 60 > 60 BUN/Creatinine Ratio 16.2 18.3 Glucose 149 H 115 H Calcium 9.1 8.7 PFSH Medical History Acid reflux Arthritis BPH (benign prostatic hyperplasia) Emphysema (subcutaneous) (surgical) resulting from a procedure Hypertension Lung nodule Macular degeneration Social History household members: spouse Smoking Status: Former smoker alcohol intake: former Discharge Plan Discharge Plan Patient Disposition: Home Provider Discharge Comment: Continue to increase your activity. Follow-up with your PCP in the next 1- 2weeks Return to the ED for: worsening shortness of breath, fever/chills, or inability to hold down food/fluids Discharge orders & Medications Prescriptions: New benzonatate 100 mg Capsule 100 mg PO TID PRN (Reason: Cough) Qty: 30 0RF erythromycin 5 mg/gram (0.5 %) Ointment 1 applic EYE-BOTH BID Qty: 3.5 0RF guaifenesin [Mucus Relief ER] 600 mg Tablet Extended Release 12hr 600 mg PO Q12HR PRN (Reason: Cough) Qty: 30 0RF prednisone 20 mg Tablet 30 mg PO DAILY Qty: 9 0RF Rx Instructions: 1.5 daily x 3 days, then 1 daily for 3 days, then 1/2 daily for 3 days, then stop levofloxacin 750 mg tablet 750 mg PO DAILY 3 Days Qty: 3 0RF Continued atenolol 25 mg tablet 25 mg PO BID terazosin 2 mg capsule 2 mg PO BID famotidine 40 mg tablet 40 mg PO BID Qty: 60 0RF lisinopril 20 mg tablet 20 mg PO DAILY Qty: 60 0RF Rx Instructions: pt takes 20 mg in am and 40 mg at nigth time hydrocodone-acetaminophen 10-325 mg tablet 1 tab PO BID PRN (Reason: pain) Qty: 60 0RF albuterol sulfate 2.5 mg /3 mL (0.083 %) solution for nebulization 2.5 mg inhalation Q6H PRN (Reason: shortness of breath or wheezing) Qty: 75 1RF cetirizine 10 mg tablet 10 mg PO DAILY PRN (Reason: allergy symptoms) Qty: 30 0RF lisinopril 40 mg tablet 40 mg PO BEDTIME Rx Instructions: 40 mg orally ;20 mg in the am and 40 mg in the evening Follow up/Referrals: Marv Haynes MD [Primary Care Provider] - Diet/Activity/Treatments Diet: Diet as Tolerated and Regular Oxygen: N/A Other treatments: Please follow up with your PCP. You will need a repeat Chest CT in about 6 months to recheck nodules that were seen (which may have been related to your pneumonia), but given your smoking history should be rechecked Visit Report/Discharge Packet Instructions: Pneumonia-Adult, Respiratory Syncytial Virus, DI for Pneumonia -- Adult, DI for Respiratory Syncytial Virus -- Adults Discharge Data Primary Care Provider: Marv Haynes Attending Provider: Ja Andino VTE Deep Vein Thrombosis/Pulmonary Embolism Present on Admission: No
--- NOTE | 2022-04-19 10:40 | CM.DPNOTE ---
DCP Discharge Home Per MD, pt is medically stable to d/c home today and no identified barriers to discharge. Pt has supportive spouse to assist and provide transport home today and RN to complete d/c instructions with pt today. Plan: Patient to d/c home today via spouse POV and no further SW needs at this time. CIARAN Romero
[2022-04-19 13:36] VITALS: BP 113/63
[2022-04-19] MEDS: LORATADINE 10 MG TABLET PO (15:09)
[2022-04-19] MEDS: predniSONE 20 MG TABLET 30 MG PO (15:09)
[2022-04-19] MEDS: SODIUM CHLORIDE 0.9% FLUSH 10 ML IV (15:10)
--- NOTE | 2022-04-19 16:26 | PC.NURSE ---
breathing seems improved significantly today. patient states i had more sleep last night and feel rested. PRN norco given for BTP r/t coughing this was effective. home meds initiated. had an episode of coughing & dizziness and states: i almost fell over but got myself to the bed in time. encouraged him to try to get to a safe position if coughing fits begin, ie: get to the bed if starting to cough to prevent any falls. no further episodes of dizziness noted. d/c paperwork reviewed by LIANA kim. d/c at 1400 when arrives.
== END 2022-04-19 13:30 | disposition home or self-care (01) ==
LOC: ED 23:14 → AC 04-16 00:12 → ICU 04-19 09:49
PROVIDERS: Emergency Medicine; Family Medicine; Admitting Provider Internal Medicine; Emergency Provider Emergency Medicine; PCP Family Medicine; Referring Provider Emergency Medicine; Visit Provider Internal Medicine
DX: J44.1 Chronic obstructive pulmonary disease with (acute) exacerbation (principal); J15.9 Unspecified bacterial pneumonia; B97.4 Respiratory syncytial virus as the cause of diseases classified elsewhere; I10 Essential (primary) hypertension; J44.9 Chronic obstructive pulmonary disease, unspecified; R19.7 Diarrhea, unspecified; H10.9 Unspecified conjunctivitis; Z87.891 Personal history of nicotine dependence; R91.8 Other nonspecific abnormal finding of lung field; Z20.822 Contact with and (suspected) exposure to COVID-19
CPT/HCPCS: 0241U; 36415; 71045; 71275; 80048; 80053; 83605; 83690; 83880; 84145; 84484; 85025; 85379; 85610; 85730; 87040; 87070; 87077; 87185; 87205; 94640; 94760; 96365; 96366; 96367; 96372; 99284; G0378; A9270; J0696; J1650; J1956; Q9967

== ENCOUNTER → 2022-06-04 09:55 | Outpatient (CLI) | payer BC, SELFPAY ==
[2022-04-16 01:33] VITALS: BMI 27.6
--- NOTE | 2022-06-04 09:59 | DI.RAD.S_ITS ---
PROCEDURE: XR CHEST 2V INDICATIONS: pneumonia follow up TECHNIQUE: 2 views of the chest were acquired. COMPARISON: [facility], CR, XR CHEST 1V, 04/15/2022, 17:42. FINDINGS: Surgical changes and devices: None. Lungs and pleura: There is decreased, mild diffuse reticulonodular pulmonary opacity. No pleural effusions or pneumothorax. Mediastinum: Mediastinal contours are normal. Heart size is normal. Bones and chest wall: No suspicious bony abnormalities. Soft tissues appear unremarkable. IMPRESSION: Decreased bilateral pulmonary opacity, consistent with resolving/resolved pneumonia with possible underlying scarring/ fibrosis. Dictated by: Lavonne Jones M.D. on 06/04/2022 at 11:08 Transcribed by: TRISTEN on 06/04/2022 at 11:08 Approved by: Lavonne Jones M.D. on 06/04/2022 at 16:19
== END ==
PROVIDERS: PCP Family Medicine; Referring Provider Family Medicine; Visit Provider Family Medicine
DX: J18.9 Pneumonia, unspecified organism (principal); I10 Essential (primary) hypertension; J44.9 Chronic obstructive pulmonary disease, unspecified; R91.8 Other nonspecific abnormal finding of lung field
CPT/HCPCS: 71046

== ENCOUNTER → 2022-08-17 10:33 | Outpatient (CLI) | payer BC, SELFPAY ==
[2022-04-16 01:33] VITALS: BMI 27.6
--- NOTE | 2022-08-17 10:39 | DI.RAD.S_ITS ---
PROCEDURE: XR LUMBAR SPINE MIN 4V INDICATIONS: LOW BACK PAIN TECHNIQUE: 5 views of the lumbar spine were acquired, including bilateral oblique views. COMPARISON: None. FINDINGS: Bones: 5 nonrib-bearing vertebrae are present. There is 6 millimeter anterolisthesis of L5 on S1. Degenerative endplate changes and bilateral facet arthrosis throughout lumbar spine is seen more notably at L4-5 and L5-S1 levels. No vertebral body compression fractures. No suspicious bony lesions. Soft tissues: Overlying bowel gas pattern is normal. No suspicious soft tissue calcifications. Oblique images: No pars defects. Bilateral bony foraminal stenosis at L5-S1 level is seen. IMPRESSION: 1. Grade 1 anterolisthesis of L5 on S1. No acute compression fracture. Degenerative disc disease throughout lumbar spine. 2. No pars defects are seen. Bilateral bony foraminal stenosis at L5-S1 level. Dictated by: Stephen Ayers M.D. on 08/17/2022 at 10:48 Approved by: Stephen Ayers M.D. on 08/17/2022 at 10:49
== END ==
PROVIDERS: PCP Family Medicine; Referring Provider Anesthesiology; Visit Provider Anesthesiology
DX: M51.16 Intervertebral disc disorders with radiculopathy, lumbar region (principal); M51.17 Intervertebral disc disorders with radiculopathy, lumbosacral region; M43.17 Spondylolisthesis, lumbosacral region; M48.07 Spinal stenosis, lumbosacral region; M54.9 Dorsalgia, unspecified; M54.50 Low back pain, unspecified; G89.29 Other chronic pain
CPT/HCPCS: 72110; 99214

== ENCOUNTER → 2022-08-23 11:02 | Outpatient (CLI) | payer MEDICARE, BC, SELFPAY ==
[2022-04-16 01:33] VITALS: BMI 27.6
--- NOTE | 2022-08-23 11:03 | DI.MRI.S_ITS ---
PROCEDURE: MR LUMBAR SPINE WO CON INDICATIONS: Lumbar radiculopathy TECHNIQUE: Noncontrast sagittal T1 spin echo and T2 fast echo, sagittal STIR, and T2 fast spin echo through the lumbar spine. In cases with scoliosis, additional coronal T2 fast spin echo may be performed. COMPARISON: [facility], CR, XR LUMBAR SPINE MIN 4V, 08/17/2022, 10:46. FINDINGS: Image quality: Excellent. Alignment and Curvature: 4 mm degenerative anterolisthesis of L5 on S1. Bone Marrow: Marrow is of normal overall signal. No acute vertebral body compression fractures. Spinal Cord: Conus medullaris terminates at the L1-L2 level. Visualized cord demonstrates normal signal and size. Paraspinous Soft Tissues: No paravertebral masses. T12-L1: Mild disc bulge. Mild facet hypertrophy. No canal stenosis or foraminal stenosis. L1-L2: Minimal disc bulge. Facet hypertrophy. No canal stenosis or foraminal stenosis. L2-L3: Disc bulge. Facet and ligament hypertrophy. No significant canal stenosis. [id number] bilateral foraminal stenosis. L3-L4: Disc bulge. Facet and ligament hypertrophy. Epidural lipomatosis. Mild canal stenosis. No significant foraminal stenosis. L4-L5: Disc bulge. Prominent facet hypertrophy. Epidural lipomatosis. Mild canal stenosis. Mild bilateral foraminal stenosis. L5-S1: Prominent bilateral facet arthropathy. 4 mm anterolisthesis of L5 on S1. Posterior disc bulge. No canal stenosis. Moderate right foraminal narrowing with mild flattening deformity on the exiting right L5 nerve root. Mild to moderate left foraminal narrowing. IMPRESSION: 1. Multilevel facet arthropathy. 2. Mild canal stenosis at L3-L4 and L4-L5. 3. Multilevel foraminal narrowing as described above, including moderate right foraminal narrowing at L5-S1. Dictated by: Judah Montenegro M.D. on 08/23/2022 at 12:44 Approved by: Judah Montenegro M.D. on 08/23/2022 at 12:48
== END ==
PROVIDERS: PCP Family Medicine; Referring Provider Anesthesiology; Visit Provider Anesthesiology
DX: M47.27 Other spondylosis with radiculopathy, lumbosacral region (principal); M47.26 Other spondylosis with radiculopathy, lumbar region; M54.50 Low back pain, unspecified; M48.061 Spinal stenosis, lumbar region without neurogenic claudication; M48.07 Spinal stenosis, lumbosacral region; G89.29 Other chronic pain
CPT/HCPCS: 72148

== ENCOUNTER → 2022-09-01 09:09 | Outpatient (CLI) | payer MEDICARE, SELFPAY ==
[2022-04-16 01:33] VITALS: BMI 27.6
--- NOTE | 2022-09-01 09:11 | DI.RAD.S_ITS ---
PROCEDURE: XR HAND LT MIN 3V INDICATIONS: Left 4th finger swelling and pain TECHNIQUE: 3 views of the hand acquired. COMPARISON: None. FINDINGS: Bones: No acute fractures or dislocations. Carpal bones are normally aligned. No suspicious bony lesions. Multifocal severe joint space narrowing is seen with subchondral sclerosis and marginal osteophyte formation. Findings predominantly involve the interphalangeal joints of the fingers. There are at least moderate degenerative changes at the 1st carpometacarpal joint and triscaphe joint and radiocarpal joint. Central erosions may be present at the 5th distal interphalangeal joint in the 4th proximal interphalangeal joint. Soft tissues: No suspicious soft tissue calcifications. IMPRESSION: Multifocal severe arthritic changes throughout the interphalangeal joints of the fingers. Findings are most prominent at the 4th proximal interphalangeal joint and 5th distal interphalangeal joint where there are possible central erosions, which raises the possibility of erosive osteoarthritis. Approved by: García Borrego M.D. on 09/01/2022 at 12:37
== END ==
PROVIDERS: PCP Family Medicine; Referring Provider Anesthesiology; Visit Provider Anesthesiology
DX: M54.16 Radiculopathy, lumbar region (principal); M79.642 Pain in left hand; M54.50 Low back pain, unspecified; M25.551 Pain in right hip; M25.552 Pain in left hip; G89.29 Other chronic pain
CPT/HCPCS: 73130; 99213

== ENCOUNTER → 2022-09-28 14:27 | Outpatient (CLI) | payer MEDICARE, SELFPAY ==
[2022-04-16 01:33] VITALS: BMI 27.6
[2022-09-28 15:39] LABS: C-Reactive Protein Quant 0.7 mg/dL (<1.0)
[2022-09-28 15:59] LABS: Erythrocyte Sedimentation Rate 19 MM/HR (0-15)
[2022-09-28 16:06] LABS: Rheumatoid Factor 131.5 IU/mL (<12.0)
[2022-10-01 16:57] LABS: ANA Screen, IFA Negative (.)
== END ==
PROVIDERS: PCP Family Medicine; Referring Provider Family Medicine; Visit Provider Family Medicine
DX: M79.642 Pain in left hand (principal); M54.16 Radiculopathy, lumbar region; I10 Essential (primary) hypertension; M54.9 Dorsalgia, unspecified; G89.29 Other chronic pain
CPT/HCPCS: 36415; 85651; 86038; 86140; 86430

== ENCOUNTER 2022-10-06 10:07 | Outpatient (CLI) | payer MEDICARE, SELFPAY ==
[2022-04-16 01:33] VITALS: BMI 27.6
--- NOTE | 2022-10-06 10:08 | DI.RAD.S_ITS ---
PROCEDURE: PAIN L INTERLAMINAR/CAUDAL INJ INDICATIONS: RADICULOPATHY COMPARISON: None. FINDINGS: Fluoroscopic spot filming was performed to verify placement of spinal needles at the mid lumbar level(s), as labeled on the films. Appropriate location(s) of the needle tip(s) was confirmed by injection of iodinated contrast. IMPRESSION: Needle placement as above Dictated by: Lavonne Jones M.D. on 10/06/2022 at 11:44 Transcribed by: TRISTEN on 10/06/2022 at 11:45 Approved by: Lavonne Jones M.D. on 10/06/2022 at 16:16
[2022-10-06 10:10] VITALS: BP 133/73; PULSE 62; RESP 20; TEMP 36.6; O2SAT 96
[2022-10-06 10:43] VITALS: BP 132/63; PULSE 54; RESP 16; O2SAT 95
[2022-10-06] MEDS: DEXAMETHASONE 10 MG/ML VIAL INJ (10:45)
[2022-10-06] MEDS: IOPAMIDOL 15 ML VIAL 3 ML INJ (10:46)
[2022-10-06 10:48] VITALS: BP 130/61; PULSE 48; RESP 16; O2SAT 95
[2022-10-06 10:55] VITALS: BP 152/70; PULSE 57; RESP 20; O2SAT 98
--- NOTE | 2022-10-06 17:08 | P.PCN_ITS ---
Date/Time/Diagnoses Date of procedure: 10/06/22 Time of procedure: 10:30 Procedure Notes Physician: Constantin Oreilly Total Fluoroscopy time (seconds): 16 Total sedation minutes: 0 Procedure in detail & Post-procedure care: L2-3 Interlaminar Epidural Steroid Injection Indications: Catrachito is presenting for treatment of lumbar radiculopathy with low back and leg pain. Preoperative diagnosis: Lumbar radiculopathy Postoperative diagnosis: Same Focused Examination: Ax3 Mood and affect are normal Vital Signs: VSS Consent: Following review of allergies and potential side effects/complications, including, but not necessarily limited to, infection, allergic reaction, local tissue breakdown, stroke, temporary or permanent nerve injury, paralysis, and possible , the patient indicated that they understood and agreed to proceed.? An informed consent document was signed by the patient, witnessed by a nurse and placed in the patient's chart.? Additionally, other treatment options including medications and physical therapy were reviewed with the patient. All questions were answered. Site was then marked. Anesthesia: Local Position: Prone Monitoring: NIBP, Pulse oximetry, 3 lead EKG Needle used: 18 G 3.5? Tuohy Contrast: Isovue 300M Injectate: Dexamethasone 15 mg with 1% lidocaine 1.5 mL Technique: The skin was prepped with chloraprep and then draped in a sterile fashion. Time out was performed as per protocol. Oxygen applied via NC. Skin and subcutaneous structures of the needle entry site was then infiltrated with 3 mL of lidocaine 1%. Under AP, lateral and contralateral oblique fluoroscopic control, the Tuohy needle was guided into the L2-3 epidural space. The space was accessed with loss of resistance technique. Isovue 300M was then injected and the spread was consistent with the epidural space. There was no evidence for intravascular or intrathecal uptake. After negative aspiration, the above- mentioned injectate was then slowly administered and the needle withdrawn. The patient expressed no unusual discomfort or paresthesias during the injection. Band-Aids applied to injection sites. EBL: less than 1 ml Complications: None Post Procedure: Patient was taken to the recovery and monitored. The patient was provided a Pain Log to continue to record the patient's response to the target- specific procedure prior to the patient's follow-up visit with the referring physician. Patient was stable upon discharge. Detailed post procedure instructions were provided. Patient was asked to call in the event of worsening pain, fever, weakness, numbness or bladder or bowel incontinence.
== END 2022-10-06 11:01 | disposition home or self-care (01) ==
LOC: RAD 10:08
PROVIDERS: PCP Family Medicine; Referring Provider Anesthesiology; Visit Provider Anesthesiology
DX: M54.16 Radiculopathy, lumbar region (principal)
CPT/HCPCS: 62323; J1100

== ENCOUNTER → 2022-11-06 10:43 | Outpatient (CLI) | payer MEDICARE, SELFPAY ==
[2022-04-16 01:33] VITALS: BMI 27.6
--- NOTE | 2022-11-06 10:44 | DI.CT.S_ITS ---
PROCEDURE: CT CHEST WO CON INDICATIONS: pulmonary nodules TECHNIQUE: Noncontrast 5 mm thick sections acquired from the pulmonary apices to the posterior costophrenic angles. 1 mm lung window, 5 mm thick coronal and sagittal and 7 mm axial MIP reformats were then acquired. For radiation dose reduction, the following was used: automated exposure control, adjustment of mA and/or kV according to patient size. COMPARISON: [facility], CT, CT ANGIO CHEST PE PROTOCOL, 04/15/2022, 21:52. FINDINGS: Image quality: Excellent. Lungs and pleura: Moderate pulmonary emphysema. Small Lauren fissure 6 mm nodule in the left lower lobe on image 3/171 remains unchanged from the prior. Additional left lower lobe nodule on image 3/183 is also unchanged Mediastinum: Heart size is normal. No pericardial effusion. No mediastinal adenopathy by size criteria. Thoracic aorta and central pulmonary arteries are normal in size. Esophagus is normal in caliber. No hiatal hernia. Bones and chest wall: No suspicious bony lesions. No vertebral body compression fractures. No axillary or supraclavicular adenopathy by size criteria. Thyroid gland unremarkable . Abdomen: Visualized upper abdominal solid organs and bowel loops appear normal in the absence of contrast. IMPRESSION: Stable left lower lobe 7 mm pulmonary nodules in a background of pulmonary emphysema. Additional 1 year follow-up recommended to assure stability. Approved by: Mikel Calix M.D. on 11/06/2022 at 11:41
== END ==
PROVIDERS: PCP Family Medicine; Referring Provider Family Medicine; Visit Provider Family Medicine
DX: R91.8 Other nonspecific abnormal finding of lung field (principal); J43.9 Emphysema, unspecified
CPT/HCPCS: 71250; Q9967

== ENCOUNTER 2023-03-21 15:09 | Outpatient (CLI) | payer MEDICARE, SELFPAY ==
[2022-04-16 01:33] VITALS: BMI 27.6
--- NOTE | 2023-03-21 15:10 | DI.RAD.S_ITS ---
PROCEDURE: PAIN L/S FACET INJ/BLK 1ST CORNELL INDICATIONS: SPONDYLOSIS COMPARISON: None. FINDINGS: Fluoroscopic spot filming was performed to verify placement of spinal needles at the bilateral L3, L4, and L5 levels, as labeled on the films. Appropriate location(s) of the needle tip(s) was confirmed by injection of iodinated contrast. IMPRESSION: Intraoperative fluoroscopic views demonstrating interlaminar injection. Dictated by: Los Hackett M.D. on 03/21/2023 at 17:01 Approved by: Los Hackett M.D. on 03/21/2023 at 17:01
[2023-03-21 15:32] VITALS: BP 139/70; PULSE 61; RESP 16; TEMP 36.7; O2SAT 97
[2023-03-21 15:56] VITALS: BP 170/85; PULSE 54; RESP 15; O2SAT 98
[2023-03-21] MEDS: iopamidoL 15 ML VIAL 3 ML INJ (15:57)
[2023-03-21] MEDS: BUPIVACAINE 0.5% (PF) 10 ML VIAL 5 ML INJ (15:57)
[2023-03-21 16:01] VITALS: BP 155/78; PULSE 59; RESP 15; O2SAT 98
[2023-03-21 16:06] VITALS: BP 153/80; PULSE 55; RESP 14; O2SAT 98
[2023-03-21 16:12] VITALS: BP 168/78; PULSE 68; RESP 16; O2SAT 98
--- NOTE | 2023-03-21 17:01 | P.PCN_ITS ---
Date/Time/Diagnoses Date of procedure: 03/21/23 Time of procedure: 16:00 Procedure Notes Physician: Constantin Oreilly Total Fluoroscopy time (seconds): 14 Total sedation minutes: 0 Procedure in detail & Post-procedure care: Bilateral L3, 4, 5 Lumbar Medial Branch Blocks Indications: Benito is presenting for treatment of lumbar spondylosis with low back pain. Preoperative diagnosis: Lumbar spondylosis Postoperative diagnosis: Same Pre-procedure History: Patient demonstrates today moderate to severe non- radicular back pain without neurologic deficit aggravated by hyperextension yes Back pain greater than leg pain? yes Patient today has tenderness over the suspected joint(s) yes History of post-traumatic injury? no Hypertrophic arthropathy yes Back pain associated with suspected motion segment instability, hypermobility or pseudoarthrosis no Pre-testing pain score (VAS): 7/10 Focused Examination: Ax3 Mood and affect are normal Vital Signs: VSS Consent: Following review of allergies and potential side effects/complications, including, but not necessarily limited to, infection, allergic reaction, local tissue breakdown, stroke, temporary or permanent nerve injury, paralysis, and possible , the patient indicated that they understood and agreed to proceed.? An informed consent document was signed by the patient, witnessed by a nurse and placed in the patient's chart.? Additionally, other treatment options including medications and physical therapy were reviewed with the patient. All questions were answered. Site was then marked. Anesthesia: Local Position: Prone Monitoring: NIBP, Pulse oximetry, 3 lead EKG Needle used: 22 ga 3.5 inch spinal needle Contrast: Isovue 300M Injectate: 0.5% bupivacaine 1 mL per site Procedure: The patient was brought into the procedure room and positioned into the prone position. Skin was prepped with a Chloraprep solution, allowed to air dry, and then draped in sterile fashion.? The right L4-5 and L5-S1 facet joints were visually identified with fluoroscopy. Lidocaine 1% was used to anesthetize the skin over each target destination with a 25ga needle. A 22 ga, 3.5 inch spinal needle was advanced to the location of the medial branch at the junction of the superior articular process and the transverse process at L4,5 and the base of the SAP of the sacrum using intermittent fluoroscopy in the AP view. Isovue 300M contrast 0.2ml was injected at each level outlining the medial borders for each level and the base of the SAP of the sacrum in the AP and lateral views. There was no evidence of vascular or intrathecal uptake. The above injectate was slowly injected at each target destination. The left L4-5 and L5-S1 facet joints were visually identified with fluoroscopy. Lidocaine 1% was used to anesthetize the skin over each target destination with a 25ga needle. A 22 ga, 3.5 inch spinal needle was advanced to the location of the medial branch at the junction of the superior articular process and the transverse process at L4,5 and the base of the SAP of the sacrum using intermittent fluoroscopy in the AP view. Isovue 300M contrast 0.2ml was injected at each level outlining the medial borders for each level and the base of the SAP of the sacrum in the AP and lateral views. There was no evidence of vascular or intrathecal uptake. The above injectate was slowly injected at each target destination. At the end of the procedure the needles were withdrawn and Band- Aids were applied for a dressing. Post Procedure: Patient was taken to the recovery and monitored. The patient was provided a Pain Log to continue to record the patient's response to the target-specific procedure prior to the patient's follow-up visit with the referring physician. Patient was stable upon discharge. Detailed post procedure instructions were provided. Patient was asked to call in the event of worsening pain, fever, weakness, numbness or bladder or bowel incontinence. Based on the medial branches blocked today, if the patient meets insurance criteria for radiofrequency, the treatment should result in the denervation of the bilateral L4-5 and L5-S1 facet joint nerves. We would expect to denervate a total of 4 facets during the radiofrequency ablation.
== END 2023-03-21 16:15 | disposition home or self-care (01) ==
PROVIDERS: PCP Family Medicine; Referring Provider Anesthesiology; Visit Provider Anesthesiology
DX: M47.816 Spondylosis without myelopathy or radiculopathy, lumbar region (principal)
CPT/HCPCS: 64493; 64494

== ENCOUNTER → 2023-04-04 09:16 | Outpatient (CLI) | payer MEDICARE, SELFPAY ==
[2022-04-16 01:33] VITALS: BMI 27.6
[2023-04-04 10:32] LABS: Add Manual Diff / Slide Review NO; Basophils Absolute Auto 0 /uL (0-100); Basophils Percent Auto 0.5 % (0-2); Eosinophils Absolute Auto 200 /uL (0-450); Eosinophils Percent Auto 3.3 % (2-4); Hematocrit 37.1 % (41-53); Hemoglobin 12.9 g/dL (13.5-17.5); Lymphocytes Absolute Auto 1400 /uL (1100-4500); Lymphocytes Percent Auto 27.2 % (25-40); Mean Corpuscular HGB Conc 34.7 % (30-36); Mean Corpuscular Hemoglobin 31.3 PG (26-34); Mean Corpuscular Volume 90.1 fL (80-100); Monocytes Absolute Auto 500 /uL (0-900); Monocytes Percent Auto 10.6 % (3-14); Neutrophils Absolute Auto 3000 /uL (1500-7000); Neutrophils Percent Auto 58.4 % (50-75); Platelet Count 193 X10^3/uL (150-400); Red Blood Cell Count 4.12 X10^6/uL (4.5-5.9); Red Cell Distribution Width 12.8 % (11.6-14.8); White Blood Cell Count 5.1 X10^3/uL (4.5-11.0)
[2023-04-04 10:39] LABS: Alanine Aminotransferase 43 IU/L (<50); Albumin 3.9 g/dL (3.5-5.0); Albumin Globulin Ratio 1.4 (1.0-2.8); Alkaline Phosphatase 49 U/L (38-126); Aspartate Aminotransferase 35 IU/L (17-59); BUN Creatinine Ratio 18.5 (6-22); Bilirubin Total 0.5 mg/dL (0.2-1.3); Blood Urea Nitrogen 15 mg/dL (9-20); Calcium 9.7 mg/dL (8.4-10.2); Carbon Dioxide 26 mmol/L (22-32); Chloride 105 mmol/L (98-107); Cholesterol 98 mg/dL (140-199); Estimated Glomerular Filt Rate > 60 mL/min (>60); Globulin 2.7 g/dL (1.7-4.1); Glucose 118 mg/dL (80-110); HDL Cholesterol 48 mg/dL (40-60); HEMOLYSIS < 15 (0-50); LDL Cholesterol Calculated 34 mg/dL (<100); Potassium 4.7 mmol/L (3.4-5.1); Sodium 137 mmol/L (137-145); Total Protein 6.6 g/dL (6.3-8.2); Triglycerides 80 mg/dL (35-150)
[2023-04-04 11:10] LABS: TSH w/ Reflex to FT4 2.01 uIU/mL (0.47-4.68)
[2023-04-04 12:16] LABS: Creatinine Urine Random 90.5 mg/dL
[2023-04-04 12:22] LABS: Microalbumin Urine Random < 0.6 mg/dL (0-1.6)
== END ==
PROVIDERS: PCP Family Medicine; Referring Provider Family Medicine; Visit Provider Family Medicine
DX: M47.26 Other spondylosis with radiculopathy, lumbar region (principal); M79.642 Pain in left hand; I10 Essential (primary) hypertension; Z12.5 Encounter for screening for malignant neoplasm of prostate; M54.50 Low back pain, unspecified; M54.9 Dorsalgia, unspecified; G89.29 Other chronic pain; M06.9 Rheumatoid arthritis, unspecified
CPT/HCPCS: 36415; 80053; 80061; 82043; 82570; 84443; 85025; 99213; G0103

== ENCOUNTER 2023-04-27 13:15 | Outpatient (CLI) | payer MEDICARE, SELFPAY ==
[2022-04-16 01:33] VITALS: BMI 27.6
[2023-04-27] VITALS (8 sets, daily range): BP systolic 139–190; BP diastolic 65–87; PULSE 50–64; RESP 12–52; TEMP 36.5; O2SAT 94–97
--- NOTE | 2023-04-27 14:00 | DI.RAD.S_ITS ---
PROCEDURE: PAIN L/S FACET INJ/BLK 1ST CORNELL INDICATIONS: SPONDYLOSIS COMPARISON: [facility], , PAIN L/S FACET INJ/BLK 1ST CORNELL, 03/21/2023, 15:56. FINDINGS: Fluoroscopic spot filming was performed to verify placement of spinal needles at the L3, L4 and L5 level(s) bilaterally, as labeled on the films. IMPRESSION: Fluoroscopic image demonstrates spinal needles at L3, L4 and L5 bilaterally. Please see procedural report for details. Dictated by: Anatoliy Arshad M.D. on 04/27/2023 at 21:17 Approved by: Anatoliy Arshad M.D. on 04/27/2023 at 21:18
[2023-04-27] MEDS: MIDAZOLAM 2 MG/2 ML VIAL 1 MG IV (14:18)
[2023-04-27] MEDS: iopamidoL 15 ML VIAL 3 ML INJ (14:20)
[2023-04-27] MEDS: LIDOCAINE 2% INJ SDV 5ML 6 ML INJ (14:21)
--- NOTE | 2023-04-27 15:56 | P.PCN_ITS ---
Date/Time/Diagnoses Date of procedure: 04/27/23 Time of procedure: 14:00 Procedure Notes Physician: Constantin Oreilly Total Fluoroscopy time (seconds): 25 Total sedation minutes: 11 Procedure in detail & Post-procedure care: Bilateral L3, 4, 5 Lumbar Medial Branch Blocks Indications: Benito is presenting for treatment of lumbar spondylosis with low back pain. Preoperative diagnosis: Lumbar spondylosis Postoperative diagnosis: Same Pre-procedure History: Patient demonstrates today moderate to severe non- radicular back pain without neurologic deficit aggravated by hyperextension yes Back pain greater than leg pain? yes Patient today has tenderness over the suspected joint(s) yes History of post-traumatic injury? no Hypertrophic arthropathy yes Back pain associated with suspected motion segment instability, hypermobility or pseudoarthrosis no Pre-testing pain score (VAS): 7/10 Focused Examination: Ax3 Mood and affect are normal Vital Signs: VSS ASA: 2 Consent: Following review of allergies and potential side effects/complications, including, but not necessarily limited to, infection, allergic reaction, local tissue breakdown, stroke, temporary or permanent nerve injury, paralysis, and possible , the patient indicated that they understood and agreed to proceed.? An informed consent document was signed by the patient, witnessed by a nurse and placed in the patient's chart.? Additionally, other treatment options including medications and physical therapy were reviewed with the patient. All questions were answered. Site was then marked. Anesthesia: After review of previous anesthetic history and IV conscious sedation, the patient was deemed safe to proceed with today's procedure with IV conscious sedation. IV sedation was accomplished with midazolam 1 mg administered by the RN after order by Dr. Oreilly. Sedation was titrated to patient comfort during the course of the procedure. Patient remained responsive to all verbal commands. Position: Prone Monitoring: NIBP, Pulse oximetry, 3 lead EKG Needle used: 22 ga 3.5 inch spinal needle Contrast: Isovue 300M Injectate: 2% lidocaine 1 mL per site Procedure: The patient was brought into the procedure room and positioned into the prone position. Skin was prepped with a Chloraprep solution, allowed to air dry, and then draped in sterile fashion.? The right L4-5 and L5-S1 facet joints were visually identified with fluoroscopy. Lidocaine 1% was used to anesthetize the skin over each target destination with a 25ga needle. A 22 ga, 3.5 inch spinal needle was advanced to the location of the medial branch at the junction of the superior articular process and the transverse process at L4,5 and the base of the SAP of the sacrum using intermittent fluoroscopy in the AP view. Isovue 300M contrast 0.2ml was injected at each level outlining the medial borders for each level and the base of the SAP of the sacrum in the AP and lateral views. There was no evidence of vascular or intrathecal uptake. The above injectate was slowly injected at each target destination. The left L4-5 and L5-S1 facet joints were visually identified with fluoroscopy. Lidocaine 1% was used to anesthetize the skin over each target destination with a 25ga needle. A 22 ga, 3.5 inch spinal needle was advanced to the location of the medial branch at the junction of the superior articular process and the transverse process at L4,5 and the base of the SAP of the sacrum using intermittent fluoroscopy in the AP view. Isovue 300M contrast 0.2ml was injected at each level outlining the medial borders for each level and the base of the SAP of the sacrum in the AP and lateral views. There was no evidence of vascular or intrathecal uptake. The above injectate was slowly injected at each target destination. At the end of the procedure the needles were withdrawn and Band- Aids were applied for a dressing. Post Procedure: Patient was taken to the recovery and monitored. The patient was provided a Pain Log to continue to record the patient's response to the target- specific procedure prior to the patient's follow-up visit with the referring physician. Patient was stable upon discharge. Detailed post procedure instructions were provided. Patient was asked to call in the event of worsening pain, fever, weakness, numbness or bladder or bowel incontinence. Postoperatively, today patient demonstrates the following changes with hyperextension and with tenderness over the suspected joint(s). Provacative testing using the Estrella's facet loading test Right side Left side E Directly before the block ?VAS (0-10) = 7/10 VAS (0-10) = 7/10 5 minutes after the block VAS (0-10) = 1/10 VAS (0-10) = 1/10 Percentage relief obtained with this diagnostic block 86% 86% Any improved physical functioning directly after the blocks? Range of motion Based on the medial branches blocked today, if the patient meets insurance criteria for radiofrequency, the treatment should result in the denervation of the bilateral L4-5 and L5-S14 facet joint nerves. We would expect to denervate a total of 4 facets during the radiofrequency ablation.
== END 2023-04-27 14:55 | disposition home or self-care (01) ==
LOC: RAD 13:16
PROVIDERS: PCP Family Medicine; Referring Provider Anesthesiology; Visit Provider Anesthesiology
DX: M47.816 Spondylosis without myelopathy or radiculopathy, lumbar region (principal)
CPT/HCPCS: 64493; 64494; 99152; J2250

== ENCOUNTER → 2023-05-11 13:18 | Outpatient (CLI) | payer MEDICARE, SELFPAY ==
[2022-04-16 01:33] VITALS: BMI 27.6
--- NOTE | 2023-05-11 13:19 | DI.ECHO.S_ITS ---
[facility]---------+ [facility] +---------+ : : [address] : [place] : : : : [id number] : : : : Phone: [phone]+ Echocardiogram Report + + :Name: ARNULFO CANALES JR Study Date: 05/11/2023 Height: 72 in : :[facility] ReadingLocation: Weight: 210 lb : : Gender: Male BSA: 2.2 m2 : :: 1950 Age: 73 yrs BP: 139/82 mmHg: :Reason For Study: EXERTIONAL DYSPNEA : :Ordering Physician: ELSA, : :PILAR Performed By: Licha Croft : :Referring: PILAR HUNTER : + + Interpretation Summary Sinus bradycardia with HR 47-56 bpm. Normal LV size and wall thickness; normal wall motion and LV systolic function. EF is 50-55% Mild LA enlargement; otherwise normal chamber sizes. Aortic valve leaflets are not well seen but appear at least moderately thickened and calcified with moderately-severely reduced leaflet excursion. Based on continuous wave Doppler, patient has mild aortic stenosis and mild- moderate associated mitral regurgitation. Otherwise no significant valvular abnormalities. Recommend cardiology consultation to establish longtitudinal care for aortic stenosis. No prior study available for comparison. Procedure: A two-dimensional transthoracic echocardiogram with color flow and Doppler was performed. The study quality was technically adequate. There is no prior echocardiogram noted for this patient. The patient was in sinus bradycardia with heart rates between 47-56 bpm during the exam. Left Ventricle: The left ventricle is normal in size and wall thickness. The ejection fraction is estimated to be 50-55%. Right Ventricle: The right ventricle is normal in size and function. Atria: The left atrium is mildly dilated. Right atrial size is normal. There is no Doppler evidence for an interatrial shunt. Mitral Valve: The mitral valve is normal in structure and function. There is mild mitral regurgitation. Aortic Valve: The aortic valve is moderately calcified. There is moderate to severely reduced leaflet mobility. There is discrete nodular thickening of the right coronary cusp. The peak aortic velocity is 2.6 m/sec. The aortic valve mean gradient is 15 mmHg. The calculated aortic valve area is 1.3 cm2. There is mild aortic regurgitation. Tricuspid Valve: The tricuspid valve is normal in structure and function. There is trace tricuspid regurgitation. Pulmonic Valve: The pulmonic valve is not well seen, but is grossly normal. There is mild pulmonic regurgitation. Great Vessels: The aortic root is normal size. The dimensions of the ascending aorta are normal. The IVC is of normal diameter and collapses greater than 50% with a sniff. This suggests a low right atrial pressure of 3 mm Hg. Pericardium/ Pleura There is no pericardial effusion. There is no pleural effusion. MMode/2D Measurements & Calculations LVIDd: 4.9 cm LVOT diam: 2.5 cm LVIDs: 3.4 cm Ao root diam: 3.5 cm FS: 30.9 % asc Aorta Diam: 3.3 cm IVSd: 0.85 cm Ao Arch Diam (Prox Trans): 2.7 cm LVPWd: 0.96 cm LV barnett. diameter/BSA (cm/m^2): 2.2 LV sys. diameter/BSA (cm/m^2): 1.5 LA A2 area: 26.7 cm2 RA long axis: 5.9 cm LA A4 area: 19.7 cm2 RA area: 17.7 cm2 LA length (vol): 5.4 cm RA vol: 45.3 ml LA vol: 82.1 ml RA : 20.8 ml/m2 LA vol index: 37.8 ml/m2 IVC diam: 2.0 cm RVD1 (basal): 3.8 cm RVD2 (mid): 3.4 cm TAPSE: 1.7 cm Doppler Measurements & Calculations Ao V2 max: 264.6 cm/sec LVOT Max Joshua: 72.7 cm/sec Ao V2 mean: 180.3 cm/sec LV V1 max P.1 mmHg Ao max P.4 mmHg LV V1 VTI: 20.1 cm Ao mean P.1 mmHg ARLET(I,D): 1.5 cm2 Ao V2 VTI: 65.4 cm ARLET(V,D): 1.3 cm2 sev ratio: 0.31 ARLET indexed to BSA (cm^2/m^2): 0.69 AI P1/2t: 624.7 msec AI dec slope: 228.7 cm/sec2 MV E max joshua: 68.1 cm/sec PA V2 max: 87.5 cm/sec MV A max joshua: 89.5 cm/sec PA V2 mean: 60.4 cm/sec MV E/A: 0.76 PA mean P.6 mmHg Med Peak E' Joshua: 6.0 cm/sec PA pr(Accel): 39.6 mmHg E/E' med: 11.3 Lat Peak E' Joshua: 8.1 cm/sec E/E' lat: 8.5 E/e' average: 9.9 MV dec time: 0.24 sec SV(OT): 98.5 ml Electronically signed by: Mary Lou Kelly M.D. on Reading Physician:05/12/2023 12:59 AM
--- NOTE | 2023-05-11 13:19 | DI.CT.S_ITS ---
PROCEDURE: CT CHEST WO CON INDICATIONS: left lower lobe nodule, now with pain near area of nodule TECHNIQUE: Noncontrast 5 mm thick sections acquired from the pulmonary apices to the posterior costophrenic angles. 1 mm lung window, 5 mm thick coronal and sagittal and 7 mm axial MIP reformats were then acquired. For radiation dose reduction, the following was used: automated exposure control, adjustment of mA and/or kV according to patient size. COMPARISON: [facility], CT, CT CHEST WO [facility], 11/06/2022, 10:52. FINDINGS: Image quality: Diagnostic. Lungs and pleura: Moderate emphysematous changes. Stable 6 millimeter left lower lobe perifissural nodule (3/185). Stable 7 millimeter left lower lobe nodule (3/198). Scattered additional smaller nodules are stable compared to prior. No new or enlarging pulmonary nodules. No acute air space opacities. No pleural effusions or pneumothorax. Central and peripheral airways are patent and normal in caliber. Mediastinum: Heart size is normal. No pericardial effusion. No mediastinal adenopathy by size criteria. Thoracic aorta and central pulmonary arteries are normal in size. Atherosclerotic vascular calcifications. Esophagus is normal in caliber. No hiatal hernia. Bones and chest wall: No suspicious bony lesions. No vertebral body compression fractures. No axillary or supraclavicular adenopathy by size criteria. No thyroid nodules which require sonographic follow up, per consensus guidelines. Upper Abdomen: Hepatic steatosis. IMPRESSION: Stable pulmonary nodules measuring up to 7 millimeters. Recommend continued follow-up in 1 year. Dictated by: Maxi Cavazso M.D. on 05/11/2023 at 15:54 Approved by: Maxi Cavazos M.D. on 05/11/2023 at 16:29
== END ==
PROVIDERS: PCP Family Medicine; Referring Provider Family Medicine; Visit Provider Family Medicine
DX: I10 Essential (primary) hypertension (principal); J44.9 Chronic obstructive pulmonary disease, unspecified; R60.0 Localized edema; R91.8 Other nonspecific abnormal finding of lung field; I08.0 Rheumatic disorders of both mitral and aortic valves
CPT/HCPCS: 71250; 93306

== ENCOUNTER 2023-05-18 07:28 | Outpatient (CLI) | payer MEDICARE, SELFPAY ==
[2022-04-16 01:33] VITALS: BMI 27.6
[2023-05-18] VITALS (12 sets, daily range): BP systolic 128–158; BP diastolic 67–77; PULSE 52–69; RESP 12–18; TEMP 36.4; O2SAT 93–97
[2023-05-18] MEDS: MIDAZOLAM 2 MG/2 ML VIAL IV (08:00)
--- NOTE | 2023-05-18 08:00 | DI.RAD.S_ITS ---
PROCEDURE: PAIN L/S MED/LAT N RFA BILAT INDICATIONS: LUMBAR SPONDYLOSIS COMPARISON: None. FINDINGS: Fluoroscopic spot filming was performed to verify placement of spinal needles at the L3-L5 level(s), as labeled on the films. Appropriate location(s) of the needle tip(s) was confirmed by injection of iodinated contrast. IMPRESSION: Fluoroscopically guided facet injection at L3, L4, and L5. Dictated by: Lena Fernandez M.D. on 05/18/2023 at 12:02 Approved by: Lena Fernandez M.D. on 05/18/2023 at 12:02
[2023-05-18] MEDS: BUPIVACAINE 0.5% (PF) 10 ML VIAL 5 ML INJ (08:01)
[2023-05-18] MEDS: DEXAMETHASONE 10 MG/ML VIAL INJ (08:02)
[2023-05-18] MEDS: LIDOCAINE 2% INJ MDV 20ML 5 ML INJ (08:03)
[2023-05-18] MEDS: MIDAZOLAM 2 MG/2 ML VIAL 1 MG IV (08:09)
--- NOTE | 2023-05-18 09:07 | P.PCN_ITS ---
Date/Time/Diagnoses Date of procedure: 05/18/23 Time of procedure: 08:00 Procedure Notes Physician: Constantin Oreilly Total Fluoroscopy time (seconds): 36 Total sedation minutes: 42 Procedure in detail & Post-procedure care: Bilateral L3, 4, 5 Lumbar Medial Branch Radio Frequency Ablation Indications: Catrachito presents for treatment of lumbar spondylosis with low back pain. Preoperative diagnosis: Lumbar spondylosis Postoperative diagnosis: Same Focused Examination: Ax3 Mood and affect are normal Vital Signs: VSS ASA: 2 Consent: Following review of allergies and potential side effects/complications, including, but not necessarily limited to, infection, allergic reaction, local tissue breakdown, stroke, temporary or permanent nerve injury, paralysis, and possible , the patient indicated that they understood and agreed to proceed .? An informed consent document was signed by the patient, witnessed by a nurse and placed in the patient's chart.? Additionally, other treatment options including medications and physical therapy were reviewed with the patient. All questions were answered. Site was then marked. Position: Prone Monitoring: NIBP, Pulse oximetry, 3 lead EKG Needle used: 18 guage, 100 mm, 10 mm active tip Anesthesia: Local with IV sedation. After review of previous anesthetic history and IV conscious sedation, the patient was deemed safe to proceed with today's procedure with IV conscious sedation. IV sedation was accomplished with midazolam 3 mg administered by the RN after order by Dr. Oreilly. Sedation was titrated to patient comfort during the course of the procedure. Patient remained responsive to all verbal commands. Procedure: The patient was brought into the procedure room and positioned into the prone position. Skin was prepped with a Chloraprep solution, allowed to air dry, and then draped in sterile fashion.? The right L4-5 and L5-S1 facet joints were visually identified with fluoroscopy. Lidocaine 1% was used to anesthetize the skin over each target destination with a 25ga needle. An 18 ga, 100 mm RFA needle with a 10 mm active tip was advanced to the location of the medial branch at the junction of the superior articular process and the transverse process at L4,5 and the base of the SAP of the sacrum using intermittent fluoroscopy in the oblique view with caudal tilt. AP and lateral radiographs were taken to confirm proper needle placement. No paresthesias were noted. The stylet was removed and the radiofrequency probe was inserted through the cannula. Each level was individually tested.? Motor stimulation up to 2V elicited multifidus twitching in the lumbar spine. There was no motor stimulation in the lower extremities. After negative aspiration, 1ml of 2% lidocaine was injected at each of the levels and radiofrequency denervation carried out using 80 degrees Celsius for 90 seconds. The needles were then rotated 90 degrees and a second ablation was performed at 80 degrees Celsius for 90 seconds. Next, the left L4-5 and L5-S1 facet joints were visually identified with fluoroscopy. Lidocaine 1% was used to anesthetize the skin over each target destination with a 25ga needle. An 18 ga, 100 mm RFA needle with a 10 mm active tip was advanced to the location of the medial branch at the junction of the superior articular process and the transverse process at L4,5 and the base of the SAP of the sacrum using intermittent fluoroscopy in the oblique view with caudal tilt. AP and lateral radiographs were taken to confirm proper needle placement. No paresthesias were noted. The stylet was removed and the radiofrequency probe was inserted through the cannula. Each level was individually tested. Motor stimulation up to 2V elicited multifidus twitching in the lumbar spine. There was no motor stimulation in the lower extremities. After negative aspiration, 1ml of 2% lidocaine was injected at each of the levels and radiofrequency denervation carried out using 80 degrees Celsius for 90 seconds. The needles were then rotated 90 degrees and a second ablation was performed at 80 degrees Celsius for 90 seconds. After ablation, a mixture of 10 mg dexamethasone with 0.5% bupivacaine 5 mL was injected in equal amounts among the sites (1 mL per site). At the end of the procedure the needles were withdrawn and Band-Aids were applie d for a dressing. This procedure is expected to denervate the bilateral L4-5 and L5-S1 facet joints. Post Procedure: Patient was taken to the recovery and monitored. The patient was provided a Pain Log to continue to record the patient's response to the target- specific procedure prior to the patient's follow-up visit with the referring physician. Patient was stable upon discharge. Detailed post procedure instructions were provided. Patient was asked to call in the event of worsening pain, fever, weakness, numbness or bladder or bowel incontinence. Complications: None
== END 2023-05-18 08:53 | disposition home or self-care (01) ==
LOC: RAD 07:28
PROVIDERS: PCP Family Medicine; Referring Provider Anesthesiology; Visit Provider Anesthesiology
DX: M47.816 Spondylosis without myelopathy or radiculopathy, lumbar region (principal)
CPT/HCPCS: 64494; 64635; 64636; 99152; 99153; J1100; J2250

== ENCOUNTER 2023-09-16 10:48 | Emergency (ER) | payer MEDICARE, SELFPAY ==
[2022-04-16 01:33] VITALS: BMI 27.6
[2023-09-16 10:51] VITALS: BP 130/68; PULSE 81; RESP 18; TEMP 36.8; O2SAT 95; BMI 27.6
[2023-09-16] MEDS: FLUORESCEIN 1 MG STRIP EYE-BOTH (12:10)
[2023-09-16] MEDS: PROPARACAINE 0.5% OPHTH SOL 1 DROPS EYE-BOTH (12:11)
--- NOTE | 2023-09-16 13:38 | ED_ITS ---
HPI - Eye Problem General Chief complaint: Eye Problems Stated complaint: r eye swelling/shut Time Seen by Provider: 09/16/23 12:02 Source: patient Mode of arrival: Ambulatory History of Present Illness HPI Narrative: Patient is 73-year-old male history of hypertension macular degeneration presenting today with right eye drainage pain and discharge. He reports that he gets shots in his right eye every 8 weeks for macular degeneration. He can no longer see out of the left. He received a routine shot 2 days ago, however yesterday and today he started having fevers chills increasing pain and drainage. Related Data Previous Rx's Medication Instructions Recorded lisinopril 20 mg tablet 20 mg PO DAILY #90 tabs 06/04/22 lisinopril 20 mg tablet 20 mg PO DAILY #90 tabs 03/14/23 lisinopril 40 mg tablet 40 mg PO BEDTIME #90 tabs 04/07/23 atenolol 25 mg tablet 25 mg PO BID #180 tabs 05/10/23 hydrocodone 10 mg-acetaminophen 1 tab PO BID PRN pain #60 tabs 07/05/23 325 mg tablet hydrocodone 10 mg-acetaminophen 1 tab PO BID PRN pain #60 tabs 07/05/23 325 mg tablet gabapentin 100 mg capsule 100 mg PO .COMPLEX #90 caps 07/11/23 terazosin 2 mg capsule 2 mg PO BID #90 caps 07/11/23 hydrocodone 10 mg-acetaminophen 1 tab PO BID PRN pain #60 tabs 07/18/23 325 mg tablet amlodipine 10 mg tablet 10 mg PO DAILY #90 tabs 08/29/23 famotidine 40 mg tablet See Rx Instructions .Route 09/05/23 .COMPLEX #90 tabs Allergies Allergy/AdvReac Type Severity Reaction Status Date / Time Penicillins Allergy Severe Anaphylaxis Verified 08/22/23 14:09 anti inflammatories Allergy Anaphylaxis Uncoded 08/22/23 14:09 Patient History Medical History Lumbar facet arthropathy Lumbar degenerative disc disease Lumbar spondylosis Rheumatoid arthritis Left hand pain Bilateral hip pain Lumbar radiculopathy Pulmonary nodules Age-related macular degeneration Melanoma (~2020) Osteoarthritis Pneumonia (~2005) Shoulder pain (~2007) Foot pain (~2008) Chronic back pain (~1997) Measles Hearing loss Blindness (~2013) Diverticular disease (~1999) GERD without esophagitis BPH w urinary obs/LUTS COPD (chronic obstructive pulmonary disease) Essential hypertension (~2009) Lung nodule Emphysema (subcutaneous) (surgical) resulting from a procedure Arthritis Macular degeneration Surgical History History of bladder repair surgery (~11/1999) Anesthesia History of hernia repair (~04/2020) Family History Father History of emphysema Mother Liver disease Brother COPD (chronic obstructive pulmonary disease) COVID-19 Brother No problems noted. Sister History of heart disease Sister Cancer Grandmother Stroke Social History household members: spouse Smoking Status: Former smoker alcohol intake: former Smoking Status: Former smoker alcohol intake frequency: holidays/special occasions only Substance Use Type: does not use Exam Initial Vital Signs Initial Vital Signs: Vital Signs Temperature 98.3 F 09/16/23 10:51 Pulse Rate 81 09/16/23 10:51 Respiratory Rate 18 09/16/23 10:51 Blood Pressure 130/68 09/16/23 10:51 Pulse Oximetry 95 09/16/23 10:51 Oxygen Delivery Method Room Air 09/16/23 10:51 GENERAL: Alert 73-year-old male appears uncomfortable CARDIOVASCULAR: peripheral pulses in tact, cap refill <2 sec RESPIRATORY: No respiratory distress, speaks in full sentences without difficulty EXTREMITIES: Normal range of motion, no clubbing or edema. Neurovascularly intact NEUROLOGICAL: Cranial nerves II through XII grossly intact. Normal gait and speech. SKIN: Warm, dry, no petechiae, no rashes or lesions. EYE: Pressure right eye 48, there is dye uptake and corneal abrasion noted on the right eye. Significant drainage and surrounding erythema pressure left eye 24 Course Orders Ordered: ED Orders 09/16/23 14:41 CBC Auto Diff [Complete Blood Count AUTO DIFF] Stat CMP [Comprehensive Metabolic Panel] Stat Discontinued Medications Fluorescein Sodium (Fluorescein 1 Mg Strip) 1 mg EYE-BOTH NOW ONE Stop: 09/16/23 12:03 Last Admin: 09/16/23 12:10 Dose: 1 mg Documented By: CASEY Proparacaine HCl (Proparacaine 0.5% Ophth Steff) 1 drops EYE-BOTH NOW ONE Stop: 09/16/23 12:03 Last Admin: 09/16/23 12:11 Dose: 1 drop Documented By: CASEY Vital Signs Vital signs: Vital Signs - 8 hr 09/16/23 15:11 Pulse Rate 95 H Respiratory Rate 18 Blood Pressure 173/84 H Pulse Oximetry 94 Oxygen Delivery Method Room Air MDM - Eye Problem Lab Data 09/16/23 14:41 09/16/23 14:41 Labs: Lab Results 09/16/23 Range/Units 14:41 WBC 13.4 H (4.5-11.0) X10^3/uL RBC 4.37 L (4.5-5.9) X10^6/uL Hgb 13.6 (13.5-17.5) g/dL Hct 40.1 L (41-53) % MCV 91.8 (80-100) fL MCH 31.1 (26-34) PG MCHC 33.9 (30-36) % RDW 13.6 (11.6-14.8) % Plt Count 148 L (150-400) X10^3/uL Neut % (Auto) 77.5 H (50-75) % Lymph % (Auto) 12.3 L (25-40) % [place] % (Auto) 9.5 (3-14) % Eos % (Auto) 0.2 L (2-4) % Baso % (Auto) 0.5 (0-2) % Neut # (Auto) 32754 H (3769-5491) /uL Lymph # (Auto) 1700 (3365-5351) /uL [place] # (Auto) 1300 H (0-900) /uL Eos # (Auto) 0 (0-450) /uL Baso # (Auto) 100 (0-100) /uL Sodium 136 L (137-145) mmol/L Potassium 3.7 (3.4-5.1) mmol/L Chloride 104 (98-107) mmol/L Carbon Dioxide 25 (22-32) mmol/L BUN 12 (9-20) mg/dL Creatinine 0.75 (0.66-1.25) mg/dL Estimated GFR > 60 (>60) mL/min BUN/Creatinine Ratio 16.0 (6-22) Glucose 114 H (80-110) mg/dL Calcium 9.6 (8.4-10.2) mg/dL Total Bilirubin 1.4 H (0.2-1.3) mg/dL AST 34 (17-59) IU/L ALT 64 H (<50) IU/L Alkaline Phosphatase 52 (38-126) U/L Total Protein 7.5 (6.3-8.2) g/dL Albumin 4.4 (3.5-5.0) g/dL Globulin 3.1 (1.7-4.1) g/dL Albumin/Globulin Ratio 1.4 (1.0-2.8) MDM Narrative Medical decision making narrative: Patient 73-year-old male presents today with acute eye pain drainage. He gets routine macular degeneration shots he has had multiple of them he would 1 2 days ago. Concern for infection at this time. He does have a corneal abrasion on examined elevated pressure. Called Dr. Tabor with [facility]. [address] Dr. Tabor updated patient's symptoms test results recommends ophthalmology emergent evaluation I have informed him that probably unable to get ophthalmology evaluation here he also states that if there is infected then he needs to see the patient. He is working currently in [place] and is happy to see patient in the office in [facility] Patient would like to go directly to [place] for evaluation. We have called and notified Dr. Tabor's office Blood work has been reviewed he does have mild leukocytosis of 13 he has gross drainage and surrounding erythema. Unclear if this is preseptal cellulitis it looks mildly red he really does have a very hard time opening his eye needs to be pried open significant drainage from the eye itself. Patient is given instructions and phone number for clinic and is told to go directly there Discharge Plan Departure Patient Disposition: Home Clinical Impression: Abrasion, corneal Activity Restrictions/Additional Instructions: Go directly to [facility] retina [address], [address] [place] [address] Tabor WBC 13 Prescriptions: No Action lisinopril 20 mg tablet 20 mg PO DAILY Qty: 90 3RF Rx Instructions: pt takes 20 mg in am and 40 mg at nigth time atenolol 25 mg tablet 25 mg PO BID Qty: 180 3RF terazosin 2 mg capsule 2 mg PO BID Qty: 90 1RF hydrocodone-acetaminophen 10-325 mg tablet 1 tab PO BID PRN (Reason: pain) Qty: 60 0RF amlodipine 10 mg tablet 10 mg PO DAILY Qty: 90 0RF famotidine 40 mg tablet See Rx Instructions .ROUTE .COMPLEX Qty: 90 3RF Dose Instruction: take 1 tablet by mouth twice a day Rx Instructions: take 1 tablet by mouth twice a day lisinopril 40 mg tablet 40 mg PO BEDTIME Qty: 90 3RF Rx Instructions: 40 mg orally ;20 mg in the am and 40 mg in the evening hydrocodone-acetaminophen 10-325 mg tablet 1 tab PO BID PRN (Reason: pain) Qty: 60 0RF hydrocodone-acetaminophen 10-325 mg tablet 1 tab PO BID PRN (Reason: pain) Qty: 60 0RF lisinopril 20 mg tablet 20 mg PO DAILY Qty: 90 3RF Rx Instructions: pt takes 20 mg in am and 40 mg at nigth time gabapentin 100 mg capsule 100 mg PO .COMPLEX Qty: 90 2RF Rx Instructions: 1 PO QHS x3 days If tolerated, 1 PO BID x3 days If tolerated, 1 PO TID Referrals: Marv Haynes MD [Primary Care Provider] - Stand Alone Forms: Patient Portal/API
--- NOTE | 2023-09-16 14:44 | PC.NURSE ---
Pt states he got a routine eye injection on Tuesday and usddenlty over the past 24 hours had swelling ot the right eye. Pt states he has gotten this injection for his glaucoma before
[2023-09-16 14:53] LABS: Add Manual Diff / Slide Review NO; Basophils Absolute Auto 100 /uL (0-100); Basophils Percent Auto 0.5 % (0-2); Eosinophils Absolute Auto 0 /uL (0-450); Eosinophils Percent Auto 0.2 % (2-4); Hematocrit 40.1 % (41-53); Hemoglobin 13.6 g/dL (13.5-17.5); Lymphocytes Absolute Auto 1700 /uL (1100-4500); Lymphocytes Percent Auto 12.3 % (25-40); Mean Corpuscular HGB Conc 33.9 % (30-36); Mean Corpuscular Hemoglobin 31.1 PG (26-34); Mean Corpuscular Volume 91.8 fL (80-100); Monocytes Absolute Auto 1300 /uL (0-900); Monocytes Percent Auto 9.5 % (3-14); Neutrophils Absolute Auto 10400 /uL (1500-7000); Neutrophils Percent Auto 77.5 % (50-75); Platelet Count 148 X10^3/uL (150-400); Red Blood Cell Count 4.37 X10^6/uL (4.5-5.9); Red Cell Distribution Width 13.6 % (11.6-14.8); White Blood Cell Count 13.4 X10^3/uL (4.5-11.0)
[2023-09-16 15:01] LABS: Alanine Aminotransferase 64 IU/L (<50); Albumin 4.4 g/dL (3.5-5.0); Albumin Globulin Ratio 1.4 (1.0-2.8); Alkaline Phosphatase 52 U/L (38-126); Aspartate Aminotransferase 34 IU/L (17-59); Bilirubin Total 1.4 mg/dL (0.2-1.3); Blood Urea Nitrogen 12 mg/dL (9-20); Calcium 9.6 mg/dL (8.4-10.2); Carbon Dioxide 25 mmol/L (22-32); Chloride 104 mmol/L (98-107); Estimated Glomerular Filt Rate > 60 mL/min (>60); Globulin 3.1 g/dL (1.7-4.1); Glucose 114 mg/dL (80-110); HEMOLYSIS < 15 (0-50); Potassium 3.7 mmol/L (3.4-5.1); Sodium 136 mmol/L (137-145); Total Protein 7.5 g/dL (6.3-8.2)
[2023-09-16 15:11] VITALS: BP 173/84; PULSE 95; RESP 18; O2SAT 94
== END 2023-09-16 15:12 | disposition home or self-care (01) ==
PROVIDERS: Emergency Provider Emergency Medicine; PCP Family Medicine
DX: S05.01XA Injury of conjunctiva and corneal abrasion without foreign body, right eye, initial encounter (principal); X58.XXXA Exposure to other specified factors, initial encounter
CPT/HCPCS: 36415; 80053; 85025; 99283; 99284

== ENCOUNTER → 2023-09-21 14:18 | Outpatient (CLI) | payer OTHER, SELFPAY ==
[2022-04-16 01:33] VITALS: BMI 27.6
== END ==
PROVIDERS: PCP Family Medicine; Referring Provider Chiropractor; Visit Provider Chiropractor
DX: J40 Bronchitis, not specified as acute or chronic (principal); F17.210 Nicotine dependence, cigarettes, uncomplicated
CPT/HCPCS: 94060

== ENCOUNTER → 2023-12-13 10:51 | Outpatient (CLI) | payer MEDICARE, SELFPAY ==
[2023-10-03 14:40] VITALS: BMI 27.6
[2023-12-13 13:19] LABS: BUN Creatinine Ratio 17.5 (6-22); Blood Urea Nitrogen 14 mg/dL (9-20); Calcium 9.3 mg/dL (8.4-10.2); Carbon Dioxide 24 mmol/L (22-32); Chloride 110 mmol/L (98-107); Estimated Glomerular Filt Rate > 60 mL/min (>60); Glucose 106 mg/dL (80-110); HEMOLYSIS < 15 (0-50); Sodium 139 mmol/L (137-145)
== END ==
PROVIDERS: PCP Family Medicine; Referring Provider Physician Assistant; Visit Provider Physician Assistant
DX: R53.83 Other fatigue (principal)
CPT/HCPCS: 36415; 80048

== ENCOUNTER → 2023-12-13 12:02 | Outpatient (CLI) | payer MEDICARE, SELFPAY ==
[2023-10-03 14:40] VITALS: BMI 27.6
--- NOTE | 2023-12-13 12:04 | DI.RAD.S_ITS ---
PROCEDURE: XR KNEE LT 3V INDICATIONS: Knee pain TECHNIQUE: 3 views of the knee were acquired. COMPARISON: None. FINDINGS: Bones: No fractures or dislocations. Mild tricompartmental osteoarthritic changes with osteophytosis and mild medial compartment joint space narrowing. No suspicious bony lesions. Soft tissues: Small joint effusion. No suspicious soft tissue calcifications. Atherosclerotic vascular calcifications. IMPRESSION: No acute osseous abnormalities. Mild osteoarthritic changes of the knee. Dictated by: Maxi Cavazos M.D. on 12/13/2023 at 14:22 Approved by: Maxi Cavazos M.D. on 12/13/2023 at 14:23
== END ==
PROVIDERS: PCP Family Medicine; Referring Provider Anesthesiology; Visit Provider Anesthesiology
DX: M25.562 Pain in left knee (principal); R53.83 Other fatigue
CPT/HCPCS: 36415; 73562; 80048

== ENCOUNTER → 2023-12-19 09:12 | Outpatient (CLI) | payer MEDICARE, SELFPAY ==
[2023-10-03 14:40] VITALS: BMI 27.6
--- NOTE | 2023-12-19 09:13 | DI.US.S_ITS ---
PROCEDURE: US ABD AORTA ANEURYSM SCREEN INDICATIONS: SOB/FORMER SMOKER TECHNIQUE: Real time scanning was performed of the aorta and iliac arteries, with image documentation. COMPARISON: None. FINDINGS: Aorta: Proximal aortic diameter measures 2.4 x 2.6 cm. Mid-aorta measures 2.2 x 2.1 cm. Distal aortic diameter is 1.5 x 1.5 cm. Iliac arteries: Right common iliac artery measures 0.9 x 0.9 cm. Left common iliac artery measures 0.9 x 0.9 cm. IMPRESSION: Negative for aneurysm. Dictated by: Gary Palomo M.D. on 12/19/2023 at 9:32 Approved by: Gary Palomo M.D. on 12/19/2023 at 9:33
--- NOTE | 2023-12-19 09:14 | DI.NM.S_ITS ---
PROCEDURE: NM FAY PERF SPECT REST & STR Rest and exercise myocardial perfusion SPECT with gated imaging and ejection fraction RADIOPHARMACEUTICAL: 11.4 mCi Tc-99m sestamibi IV at rest and 25.7 mCi Tc-99m sestamibi IV at peak exercise. A 6-fve-emenjswe was performed. INDICATIONS: SOB/FORMER SMOKER TECHNIQUE: Radiopharmaceutical was injected at peak stress test, and also at rest. SPECT images were obtained. SPECT myocardial perfusion images were displayed in short axis, horizontal long axis, and vertical long axis views. Gated images were reviewed using [employer] software. COMPARISON: None. CARDIAC STRESS: A standard Beto treadmill exercise tolerance test was performed by the patient under the supervision of an attending staff. The patient exercised for 7 minutes and 13 seconds; 10.1 METS; functional aerobic impairment (ISAÍAS) is -19%. Hemodynamic data: There is normal blood pressure and heart rate response to exercise stress. Patient achieved 117% of maximum predicted heart rate at peak exercise. Maximum blood pressure 182/80. Symptoms: Patient denied chest pain during exercise. EKG: No diagnostic EKG changes of ischemia; occasional PACs and PVCs. FINDINGS: Raw data: There is good myocardial labeling by radiotracer. No significant motion artifacts. Nczk-jo-oysre ratio is 0.44 (normal is less than 0.38 for sestamibi tracer, and less than 0.50 for thallium tracer). Left ventricle function: Gated images demonstrate normal left ventricle wall thickening. No segmental wall motion abnormality. No transient ischemic dilation; TID is 0.71 (normal less than 1.3). The left ventricle resting end-diastolic volume is 129 mL. Left ventricle stress ejection fraction is 72%; normal values are above 45%. Myocardial perfusion: There is normal distribution of activity in the left and right ventricular myocardium. No fixed or reversible perfusion defects. IMPRESSION: Low risk study. No evidence of exercise-induced ischemia on ECG or SPECT imaging. Mildly dilated LV based on calculated LVEDV with normal function. Normal hemodynamic response to exercise. Good exercise capacity. Dictated by: Lizbeth Rios D.O. on 12/19/2023 at 16:08 Approved by: Lizbeth Rios D.O. on 12/19/2023 at 16:11
== END ==
PROVIDERS: PCP Family Medicine; Referring Provider Internal Medicine Cardiovascular Disease; Visit Provider Internal Medicine Cardiovascular Disease
DX: R06.02 Shortness of breath (principal); Z87.891 Personal history of nicotine dependence; Z13.6 Encounter for screening for cardiovascular disorders
CPT/HCPCS: 76706; 78452; 93017; A9502

== ENCOUNTER 2024-01-11 07:10 | Outpatient (CLI) | payer MEDICARE, SELFPAY ==
[2023-10-03 14:40] VITALS: BMI 27.6
[2024-01-11] VITALS (12 sets, daily range): BP systolic 129–161; BP diastolic 60–75; PULSE 51–66; RESP 12–20; TEMP 36.4; O2SAT 95–99
--- NOTE | 2024-01-11 08:00 | DI.RAD.S_ITS ---
PROCEDURE: PAIN L/S MED/LAT N RFA BILAT INDICATIONS: SPONDYLOSIS COMPARISON: [facility], , PAIN L/S MED/LAT N RFA BILAT, 05/18/2023, 9:01. FINDINGS: Fluoroscopic spot filming was performed to verify placement of spinal needles at the L3, L4 and L5 level(s), as labeled on the films. Appropriate location(s) of the needle tip(s) was confirmed by injection of iodinated contrast. IMPRESSION: Fluoro guidance was provided intraoperatively for bilateral L3, L4 and L5 RFA performed by ordering physician. Dictated by: Stephen Ayers M.D. on 01/11/2024 at 15:48 Approved by: Stephen Ayers M.D. on 01/11/2024 at 15:48
[2024-01-11] MEDS: MIDAZOLAM 2 MG/2 ML VIAL IV (08:01)
[2024-01-11] MEDS: BUPIVACAINE 0.5% (PF) 10 ML VIAL INJ (08:04)
[2024-01-11] MEDS: LIDOCAINE 2% INJ MDV 20ML 10 ML INJ (08:05)
[2024-01-11] MEDS: DEXAMETHASONE 10 MG/ML VIAL INJ (08:05)
[2024-01-11] MEDS: LIDOCAINE 1% 20 ML INJ (08:05)
[2024-01-11] MEDS: MIDAZOLAM 2 MG/2 ML VIAL 1 MG IV (08:18)
[2024-01-11 08:23] LABS: BUN Creatinine Ratio 20.7 (6-22); Blood Urea Nitrogen 18 mg/dL (9-20); Calcium 9.3 mg/dL (8.4-10.2); Carbon Dioxide 23 mmol/L (22-32); Chloride 110 mmol/L (98-107); Estimated Glomerular Filt Rate > 60 mL/min (>60); Glucose 118 mg/dL (80-110); HEMOLYSIS < 15 (0-50); Potassium 4.7 mmol/L (3.4-5.1); Sodium 140 mmol/L (137-145)
--- NOTE | 2024-01-11 09:47 | P.PCN_ITS ---
Date/Time/Diagnoses Date of procedure: 01/11/24 Time of procedure: 08:00 Procedure Notes Physician: Constantin Oreilly Total Fluoroscopy time (seconds): 38 Total sedation minutes: 31 Procedure in detail & Post-procedure care: Bilateral L3, 4, 5 Lumbar Medial Branch Radio Frequency Ablation Indications: Catrachito presents for treatment of lumbar spondylosis with low back pain. Preoperative diagnosis: Lumbar spondylosis Postoperative diagnosis: Same Focused Examination: Ax3 Mood and affect are normal Vital Signs: VSS ASA: 2 Consent: Following review of allergies and potential side effects/complications, including, but not necessarily limited to, infection, allergic reaction, local tissue breakdown, stroke, temporary or permanent nerve injury, paralysis, and possible , the patient indicated that they understood and agreed to proceed.? An informed consent document was signed by the patient, witnessed by a nurse and placed in the patient's chart.? Additionally, other treatment options including medications and physical therapy were reviewed with the patient. All questions were answered. Site was then marked. Position: Prone Monitoring: NIBP, Pulse oximetry, 3 lead EKG Needle used: 18 guage, 100 mm, 10 mm active tip Anesthesia: Local with IV sedation. After review of previous anesthetic history and IV conscious sedation, the patient was deemed safe to proceed with today's procedure with IV conscious sedation. IV sedation was accomplished with midazolam 3 mg administered by the RN after order by Dr. Oreilly. Sedation was titrated to patient comfort during the course of the procedure. Patient remained responsive to all verbal commands. Procedure: The patient was brought into the procedure room and positioned into the prone position. Skin was prepped with a Chloraprep solution, allowed to air dry, and then draped in sterile fashion.? The right L4-5 and L5-S1 facet joints were visually identified with fluoroscopy. Lidocaine 1% was used to anesthetize the skin over each target destination with a 25ga needle. An 18 ga, 100 mm RFA needle with a 10 mm active tip was advanced to the location of the medial branch at the junction of the superior articular process and the transverse process at L4,5 and the base of the SAP of the sacrum using intermittent fluoroscopy in the oblique view with caudal tilt. AP and lateral radiographs were taken to confirm proper needle placement. No paresthesias were noted. The stylet was removed and the radiofrequency probe was inserted through the cannula. Each level was individually tested.? Motor stimulation up to 2V elicited multifidus twitching in the lumbar spine. There was no motor stimulation in the lower extremities. After negative aspiration, 1ml of 2% lidocaine was injected at each of the levels and radiofrequency denervation carried out using 80 degrees Celsius for 90 seconds with the Venom technology. Next, the left L4-5 and L5-S1 facet joints were visually identified with fluoroscopy. Lidocaine 1% was used to anesthetize the skin over each target destination with a 25ga needle. An 18 ga, 100 mm RFA needle with a 10 mm active tip was advanced to the location of the medial branch at the junction of the superior articular process and the transverse process at L4,5 and the base of the SAP of the sacrum using intermittent fluoroscopy in the oblique view with caudal tilt. AP and lateral radiographs were taken to confirm proper needle placement. No paresthesias were noted. The stylet was removed and the radiofrequency probe was inserted through the cannula. Each level was individually tested. Motor stimulation up to 2V elicited multifidus twitching in the lumbar spine. There was no motor stimulation in the lower extremities. After negative aspiration, 1ml of 2% lidocaine was injected at each of the levels and radiofrequency denervation carried out using 80 degrees Celsius for 90 seconds with the Venom technology. After ablation, a mixture of 10 mg dexamethasone with 0.5% bupivacaine 5 mL was injected in equal amounts among the sites (1 mL per site). At the end of the procedure the needles were withdrawn and Band-Aids were applied for a dressing. This procedure is expected to denervate the bilateral L4-5 and L5-S1 facet joints. Post Procedure: Patient was taken to the recovery and monitored. The patient was provided a Pain Log to continue to record the patient's response to the target- specific procedure prior to the patient's follow-up visit with the referring physician. Patient was stable upon discharge. Detailed post procedure instructions were provided. Patient was asked to call in the event of worsening pain, fever, weakness, numbness or bladder or bowel incontinence. Complications: None
== END 2024-01-11 09:00 | disposition home or self-care (01) ==
PROVIDERS: PCP Family Medicine; Referring Provider Anesthesiology; Visit Provider Anesthesiology
DX: M47.816 Spondylosis without myelopathy or radiculopathy, lumbar region (principal); R53.83 Other fatigue
CPT/HCPCS: 36415; 64635; 64636; 80048; 99152; 99153; J1100; J2250

== ENCOUNTER → 2024-03-22 09:34 | Outpatient (CLI) | payer MEDICARE, SELFPAY ==
[2024-02-01 17:40] VITALS: BMI 27.6
[2024-03-22 12:12] LABS: Add Manual Diff / Slide Review NO; Basophils Absolute Auto 0 /uL (0-100); Basophils Percent Auto 0.6 % (0-2); Eosinophils Absolute Auto 200 /uL (0-450); Eosinophils Percent Auto 3.2 % (2-4); Hematocrit 40.8 % (41-53); Hemoglobin 13.8 g/dL (13.5-17.5); Lymphocytes Absolute Auto 1500 /uL (1100-4500); Lymphocytes Percent Auto 31.2 % (25-40); Mean Corpuscular HGB Conc 33.8 % (30-36); Mean Corpuscular Hemoglobin 31.2 PG (26-34); Mean Corpuscular Volume 92.3 fL (80-100); Monocytes Absolute Auto 500 /uL (0-900); Monocytes Percent Auto 10.1 % (3-14); Neutrophils Absolute Auto 2600 /uL (1500-7000); Neutrophils Percent Auto 54.9 % (50-75); Platelet Count 171 X10^3/uL (150-400); Red Blood Cell Count 4.42 X10^6/uL (4.5-5.9); Red Cell Distribution Width 13.2 % (11.6-14.8); White Blood Cell Count 4.8 X10^3/uL (4.5-11.0)
[2024-03-22 12:28] LABS: Creatinine Urine Random 48.66 mg/dL
[2024-03-22 12:46] LABS: Microalbumin Urine Random < 0.6 mg/dL (0-1.6)
[2024-03-22 12:50] LABS: Alanine Aminotransferase 64 IU/L (<50); Albumin 4.1 g/dL (3.5-5.0); Albumin Globulin Ratio 1.6 (1.0-2.8); Alkaline Phosphatase 56 U/L (38-126); Aspartate Aminotransferase 49 IU/L (17-59); BUN Creatinine Ratio 21.8 (6-22); Bilirubin Direct 0.2 mg/dL (0.0-0.4); Bilirubin Total 0.7 mg/dL (0.2-1.3); Blood Urea Nitrogen 17 mg/dL (9-20); Calcium 9.6 mg/dL (8.4-10.2); Carbon Dioxide 26 mmol/L (22-32); Chloride 106 mmol/L (98-107); Cholesterol 106 mg/dL (140-199); Estimated Glomerular Filt Rate > 60 mL/min (>60); Globulin 2.6 g/dL (1.7-4.1); Glucose 107 mg/dL (80-110); HDL Cholesterol 51 mg/dL (40-60); HEMOLYSIS < 15 (0-50); LDL Cholesterol Calculated 44 mg/dL (<100); Potassium 4.6 mmol/L (3.4-5.1); Sodium 137 mmol/L (137-145); Total Protein 6.7 g/dL (6.3-8.2); Triglycerides 56 mg/dL (35-150)
[2024-03-22 13:20] LABS: Prostate Specific Antigen Scrn 1.23 ng/mL (0.1-4.0)
[2024-03-22 13:21] LABS: TSH w/ Reflex to FT4 1.96 uIU/mL (0.47-4.68)
[2024-03-23 04:36] LABS: Apolipoprotein B 39 mg/dL (<90)
== END ==
LOC: LAB 09:36
PROVIDERS: PCP Family Medicine; Referring Provider Family Medicine; Visit Provider Family Medicine
DX: M25.562 Pain in left knee (principal); I10 Essential (primary) hypertension; Z12.5 Encounter for screening for malignant neoplasm of prostate; M17.12 Unilateral primary osteoarthritis, left knee; M06.9 Rheumatoid arthritis, unspecified; M51.369 Other intervertebral disc degeneration, lumbar region without mention of lumbar back pain or lower extremity pain
CPT/HCPCS: 36415; 80053; 80061; 82043; 82172; 82248; 82570; 84443; 85025; G0103

== ENCOUNTER → 2024-04-19 15:40 | Outpatient (CLI) | payer MEDICARE, SELFPAY ==
[2024-02-01 17:40] VITALS: BMI 27.6
[2024-04-19 16:58] LABS: Influenza A - CEPHEID Flu A NEGATIVE (NEGATIVE); Influenza B - CEPHEID Flu B NEGATIVE (NEGATIVE); Respiratory Syncytial Virus Negative (Negative)
[2024-04-19 17:21] LABS: COVID-19 CEPHEID 4-PLEX PCR Negative (Negative)
== END ==
PROVIDERS: PCP Family Medicine; Visit Provider Nurse Practitioner Family
DX: R05.1 Acute cough (principal); J01.90 Acute sinusitis, unspecified
CPT/HCPCS: 0241U; 87070

== ENCOUNTER → 2024-06-01 11:42 | Outpatient (CLI) | payer MEDICARE, SELFPAY ==
[2024-02-01 17:40] VITALS: BMI 27.6
--- NOTE | 2024-06-01 11:46 | DI.CT.S_ITS ---
PROCEDURE: CT CHEST WO CON INDICATIONS: pulmonary nodule TECHNIQUE: Noncontrast 5 mm thick sections acquired from the pulmonary apices to the posterior costophrenic angles. 1 mm lung window, 5 mm thick coronal and sagittal and 7 mm axial MIP reformats were then acquired. For radiation dose reduction, the following was used: automated exposure control, adjustment of mA and/or kV according to patient size. COMPARISON: [facility], CT, CT CHEST WO [facility], 05/11/2023, 13:27. FINDINGS: Image quality: Diagnostic. Lower Neck: No enlarged lymph nodes. Thyroid: Normal CT appearance. Axillae: No enlarged lymph nodes. Chest Wall: Unremarkable. Bones: No suspicious bone lesions. Lungs and Pleura: Moderate irregular upper lobe paraseptal and centrilobular emphysematous changes. New spiculated patchy opacity posterolateral right upper lobe adjacent to emphysematous changes measures about 1.3 x 1.4 cm. Irregular bibasilar reticulation and mild traction bronchiectasis in the costophrenic sulci, in occasional very small subpleural areas of honeycombing. A smooth 7 mm nodule in the lateral left lower lobe, 3/208 is stable. Ground-glass juxta fissural nodules are seen occasionally. Heart: Heart size is normal. No pericardial effusion. Thoracic Vessels: Normal caliber vessels. Mild arch and moderate aortic valvular calcification. Mediastinum and Mally: Several borderline mediastinal lymph nodes are fairly stable in size and number. No hilar adenopathy. Esophagus: No wall thickening. No hiatal hernia. Upper Abdomen: Mild hepatomegaly. Cholelithiasis. Visible portions of upper abdominal organs are otherwise normal. IMPRESSION: Interval development of spiculated patchy opacity in the right upper lobe with indeterminate characteristics. Recommend three-month follow-up chest CT. Stable borderline mediastinal lymph nodes. 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 Dictated by: Neli Norwood M.D. on 06/02/2024 at 23:34 Approved by: Neli Norwood M.D. on 06/02/2024 at 23:46
== END ==
PROVIDERS: PCP Family Medicine; Referring Provider Internal Medicine Cardiovascular Disease; Visit Provider Internal Medicine Cardiovascular Disease
DX: R91.8 Other nonspecific abnormal finding of lung field (principal); I70.0 Atherosclerosis of aorta; K80.20 Calculus of gallbladder without cholecystitis without obstruction; R16.0 Hepatomegaly, not elsewhere classified
CPT/HCPCS: 71250

== ENCOUNTER → 2024-06-01 11:47 | Outpatient (CLI) | payer MEDICARE, SELFPAY ==
[2024-02-01 17:40] VITALS: BMI 27.6
--- NOTE | 2024-06-01 11:49 | DI.ECHO.S_ITS ---
[place] [facility] : : [address] : : [place] : : [id number] : : Phone: [phone] Echocardiogram Report + + :Name: ARNULFO CANALES JR Study Date: 06/01/2024 Height: 72 in : :[facility] ReadingLocation: Weight: 210 lb : : Gender: Male BSA: 2.2 m2 : :: 1950 Age: 74 yrs BP: 141/81 mmHg: :Reason For Study: AORTIC STENOSIS : :Ordering Physician: ELSA, : :PILAR Performed By: Licha Croft : :Referring: PILAR HUNTER : + + Interpretation Summary The left ventricle is normal in size and wall thickness. The left ventricular ejection fraction is normal. The ejection fraction is estimated to be 60-65%. Previous LVEF 50 to 55%. The right ventricle is at the upper limits of normal in size. The right ventricular systolic function is normal. MR. Aortic valve not well-visualized. It appears to be moderate to severely calcified with moderate to severely decreased excursion. The peak aortic velocity is 3.1 m/sec. The aortic valve mean gradient is 21 mmHg. The calculated aortic valve area is 1.2 cm2. The peak aortic velocity on the previous exam was 2.64 m/sec. sev ratio: 0.27 Overall moderate aortic stenosis. There is mild to moderate aortic regurgitation. The IVC is of normal diameter and collapses less than 50% with a sniff. This suggests a right atrial pressure of 8 mm Hg. Procedure: A two-dimensional transthoracic echocardiogram with color flow and Doppler was performed. The study quality was technically adequate. Comparison is made with the echocardiogram of 05/11/2023. The patient was in sinus rhythm with heart rates between 53-64 bpm during the exam. Left Ventricle: The left ventricle is normal in size and wall thickness. There is no thrombus. The ejection fraction is estimated to be 60-65%. The left ventricular ejection fraction is normal. There are no focal wall motion abnormalities. Diastolic parameters suggest a relaxation abnormality of the left ventricle, consistent with probable normal filling pressures. Right Ventricle: The right ventricle is at the upper limits of normal in size. The right ventricular systolic function is normal. Atria: The left atrial size is normal. The left atrium has mildly decreased in size since the prior echo exam. Right atrial size is normal. There is no Doppler evidence for an interatrial shunt. Mitral Valve: The mitral valve leaflets appear borderline thickened, but open well. There is mild mitral annular calcification. There is mild mitral regurgitation. Aortic Valve: There is moderate to severely reduced leaflet mobility. Aortic valve not well-visualized. It appears to be moderate to severely calcified with moderate to severely decreased excursion. The peak aortic velocity is 3.1 m/sec. The aortic valve mean gradient is 21 mmHg. The calculated aortic valve area is 1.2 cm2. The peak aortic velocity on the previous exam was 2.64 m/sec. There is mild to moderate aortic regurgitation. Tricuspid Valve: The tricuspid valve is not well visualized, but is grossly normal. There is trace tricuspid regurgitation. Pulmonary artery pressures cannot be estimated because of the lack of a measurable TR jet velocity. Pulmonic Valve: The pulmonic valve is not well visualized. There is trace pulmonic regurgitation. Great Vessels: The aortic root is normal size. The dimensions of the ascending aorta are normal. The IVC is of normal diameter and collapses less than 50% with a sniff. This suggests a right atrial pressure of 8 mm Hg. Pericardium/ Pleura There is no pericardial effusion. There is no pleural effusion. MMode/2D Measurements & Calculations LVIDd: 4.6 cm LVOT diam: 2.5 cm LVIDs: 3.0 cm Ao root diam: 3.4 cm FS: 36.1 % asc Aorta Diam: 3.3 cm EPSS: 0.73 cm Ao Arch Diam (Prox Trans): 3.4 cm IVSd: 0.81 cm LVPWd: 0.92 cm LV barnett. diameter/BSA (cm/m^2): 2.1 LV sys. diameter/BSA (cm/m^2): 1.4 LA A2 area: 22.3 cm2 RA long axis: 5.9 cm LA A4 area: 21.3 cm2 RA area: 18.4 cm2 LA length (vol): 6.2 cm RA vol: 49.0 ml LA vol: 64.8 ml RA : 22.5 ml/m2 LA vol index: 29.8 ml/m2 IVC diam: 1.5 cm RVD1 (basal): 4.2 cm RVD2 (mid): 3.2 cm TAPSE: 2.1 cm Doppler Measurements & Calculations Ao V2 max: 312.1 cm/sec LVOT Max Joshua: 78.4 cm/sec Ao V2 mean: 199.3 cm/sec LV V1 max P.5 mmHg Ao max P.4 mmHg LV V1 VTI: 20.1 cm Ao mean P.6 mmHg ARLET(I,D): 1.3 cm2 Ao V2 VTI: 73.4 cm ARLET(V,D): 1.2 cm2 sev ratio: 0.27 ARLET indexed to BSA (cm^2/m^2): 0.62 AI P1/2t: 642.4 msec AI dec slope: 206.8 cm/sec2 MV E max joshua: 79.3 cm/sec PA V2 max: 96.0 cm/sec MV A max joshua: 81.4 cm/sec PA V2 mean: 66.5 cm/sec MV E/A: 0.97 PA mean P.9 mmHg Med Peak E' Joshua: 8.3 cm/sec PA pr(Accel): 25.9 mmHg E/E' med: 9.6 Lat Peak E' Joshua: 12.0 cm/sec E/E' lat: 6.6 E/e' average: 8.1 MV dec time: 0.27 sec SV(LVOT): 98.9 ml Reading Physician:03:00 PM
== END ==
PROVIDERS: PCP Family Medicine; Referring Provider Family Medicine; Visit Provider Family Medicine
DX: I08.0 Rheumatic disorders of both mitral and aortic valves (principal); R91.8 Other nonspecific abnormal finding of lung field; I70.0 Atherosclerosis of aorta; K80.20 Calculus of gallbladder without cholecystitis without obstruction; R16.0 Hepatomegaly, not elsewhere classified
CPT/HCPCS: 71250; 93306

== ENCOUNTER 2024-06-09 08:43 | Emergency (ER) | payer MEDICARE, SELFPAY ==
[2024-02-01 17:40] VITALS: BMI 27.6
[2024-06-09 08:49] VITALS: BP 131/65; PULSE 79; RESP 17; TEMP 37.2; O2SAT 93; BMI 28.5
--- NOTE | 2024-06-09 08:57 | DI.RAD.S_ITS ---
PROCEDURE: XR CHEST 2V INDICATIONS: cough TECHNIQUE: 2 views of the chest were acquired. COMPARISON: [facility], CR, XR CHEST 2V, 06/04/2022, 10:01. [facility], CT, CT CHEST WO CON, 06/01/2024, 12:01. FINDINGS: Surgical changes and devices: None. Lungs and pleura: Mild generalized interstitial prominence can be seen. No dora consolidation can be seen. Low lung volumes are noted. This causes a crowded appearance to the lung markings and limits evaluation. No pneumothorax or pleural effusions are seen. Mediastinum: Mediastinal contours are normal. Heart size is normal. Bones and chest wall: No suspicious bony abnormalities. Age-appropriate bony degenerative changes are seen. Soft tissues appear unremarkable. IMPRESSION: Low lung volumes with mild generalized interstitial prominence. Mild pulmonary is suspected, although differential diagnosis includes viral infection and baseline parenchymal coarsening. No cardiomegaly. Dictated by: Gary Palomo M.D. on 06/09/2024 at 8:27 Approved by: Gary Palomo M.D. on 06/09/2024 at 8:30
--- NOTE | 2024-06-09 09:27 | PC.NURSE ---
Pt ambulatory to room. Steady gait noted. Appears in NAD.
--- NOTE | 2024-06-09 10:05 | ED.URI ---
HPI - URI/Sore Throat General Chief Complaint: Upper Respiratory Symptoms Stated Complaint: PNA? upper resp trouble, cough Time Seen by Provider: 06/09/24 09:56 Source: patient Mode of arrival: Ambulatory History of Present Illness HPI Narrative: Patient 74-year-old history of chronic back pain, COPD, pneumonia, hyperlipidemia presenting today cough. He reports that he has had cough for the last couple of days generally not feeling well decrease in appetite. Around her grandson who was also sick as well. He is coughing up greenish like sputum. He feels short of breath with exertion. He has some left-sided chest pain in the lower ribs hurts to breathe and move. He says every time he was pneumonia that and coughing like that is where hurts. He has been hospitalized with pneumonia in the past Related Data Home Medications Medication Instructions Recorded Confirmed spironolactone 25 mg tablet 25 mg PO DAILY 12/13/23 06/06/24 Previous Rx's Medication Instructions Recorded lisinopril 40 mg tablet 40 mg PO BEDTIME #90 tabs 02/01/24 famotidine 40 mg tablet See Rx Instructions .Route 02/21/24 .COMPLEX #90 tabs terazosin 2 mg capsule 2 mg PO BID #180 caps 03/19/24 hydrocodone 10 mg-acetaminophen 1 tab PO BID PRN pain #60 tabs 04/30/24 325 mg tablet hydrocodone 10 mg-acetaminophen 1 tab PO BID PRN pain #60 tabs 04/30/24 325 mg tablet hydrocodone 10 mg-acetaminophen 1 tab PO BID PRN pain #60 tabs 04/30/24 325 mg tablet atenolol 25 mg tablet 25 mg PO BID #180 tabs 05/31/24 celecoxib 200 mg capsule (Celebrex) 200 mg PO DAILY #30 caps 06/06/24 azithromycin 250 mg tablet See Rx Instructions PO .COMPLEX #6 06/09/24 tabs cefdinir 300 mg capsule 300 mg PO Q12H #10 caps 06/09/24 Allergies Allergy/AdvReac Type Severity Reaction Status Date / Time Penicillins Allergy Severe Anaphylaxis Verified 06/06/24 08:18 anti inflammatories Allergy Anaphylaxis Uncoded 06/06/24 08:18 Patient History Medical History Osteoarthritis of left knee Left knee pain Lumbar facet arthropathy Lumbar degenerative disc disease Lumbar spondylosis Rheumatoid arthritis Left hand pain Bilateral hip pain Lumbar radiculopathy Pulmonary nodules Age-related macular degeneration Melanoma (~2020) Osteoarthritis Pneumonia (~2005) Shoulder pain (~2007) Foot pain (~2008) Chronic back pain (~1997) Measles Hearing loss Blindness (~2013) Diverticular disease (~1999) GERD without esophagitis BPH w urinary obs/LUTS COPD (chronic obstructive pulmonary disease) Essential hypertension (~2009) Lung nodule Emphysema (subcutaneous) (surgical) resulting from a procedure Arthritis Macular degeneration Surgical History History of bladder repair surgery (~11/1999) Anesthesia History of hernia repair (~04/2020) Family History Father History of emphysema Mother Liver disease Brother COPD (chronic obstructive pulmonary disease) COVID-19 Brother No problems noted. Sister History of heart disease Sister Cancer Grandmother Stroke Social History household members: spouse Smoking Status: Former smoker alcohol intake: former Smoking Status: Former smoker alcohol intake frequency: holidays/special occasions only Exam Initial Vital Signs Initial Vital Signs: Vital Signs Temperature 98.9 F 06/09/24 08:49 Pulse Rate 79 06/09/24 08:49 Respiratory Rate 17 06/09/24 08:49 Blood Pressure 131/65 06/09/24 08:49 Pulse Oximetry 93 06/09/24 08:49 Oxygen Delivery Method Room Air 06/09/24 08:49 GENERAL: Alert 74-year-old male HEENT: Head atraumatic,EOMI, pupils reactive, face symmetric, moist mucous membranes CARDIOVASCULAR: Regular rate and rhythm without murmurs, rubs or gallops. RESPIRATORY: Breath sounds equal bilaterally, no wheezes rales or rhonchi. ABDOMEN: Soft, nontender. Normoactive bowel sounds all 4 quadrants. No guarding or rebound. EXTREMITIES: Normal range of motion, no clubbing. Left leg swelling greater than right leg. Both patient and state that this is chronic ongoing it gets better with compression socks he just does not feel well enough to put on his compressions. Neurovascularly intact NEUROLOGICAL: Alert and oriented x4.Normal gait and speech. SKIN: Warm, dry, no laceration, no petechiae, no rashes or lesions. Course Orders Ordered: ED Orders 06/09/24 10:19 EKG-12 Lead Stat 06/09/24 10:40 Complete Blood Count AUTO DIFF Stat Comprehensive Metabolic Panel Stat Lactate (Lactic Acid) Stat Lipase Stat NT-proBNP (BNP-Adult 18+) Stat Procalcitonin Stat Troponin & CK Cardiac Panel Stat 06/09/24 10:45 Covid-19 + FLU A/B + RSV - PCR Stat 06/09/24 10:57 Blood Culture Stat Discontinued Medications Acetaminophen (Acetaminophen 325 Mg Tablet) 975 mg PO NOW ONE Stop: 06/09/24 10:21 Last Admin: 06/09/24 10:29 Dose: 975 mg Documented By: Vital Signs Vital signs: Vital Signs - 8 hr 06/09/24 12:00 06/09/24 12:30 06/09/24 13:00 Pulse Rate 73 62 Respiratory Rate 15 20 Blood Pressure 108/60 109/58 L 105/58 L Pulse Oximetry 94 93 Oxygen Delivery Method 06/09/24 13:09 Pulse Rate 67 Respiratory Rate 21 Blood Pressure 117/60 Pulse Oximetry 95 Oxygen Delivery Method Room Air MDM - URI/Sore Throat Lab Data 06/09/24 10:40 06/09/24 10:40 Labs: Lab Results 06/09/24 06/09/24 Range/Units 10:40 10:45 WBC 12.1 H (4.5-11.0) X10^3/uL RBC 4.16 L (4.5-5.9) X10^6/uL Hgb 12.9 L (13.5-17.5) g/dL Hct 37.6 L (41-53) % MCV 90.3 (80-100) fL MCH 31.0 (26-34) PG MCHC 34.3 (30-36) % RDW 13.2 (11.6-14.8) % Plt Count 161 (150-400) X10^3/uL Neut % (Auto) 80.5 H (50-75) % Lymph % (Auto) 10.0 L (25-40) % Lawrence % (Auto) 8.6 (3-14) % Eos % (Auto) 0.6 L (2-4) % Baso % (Auto) 0.3 (0-2) % Neut # (Auto) 9700 H (9987-4192) /uL Lymph # (Auto) 1200 (2465-3760) /uL Lawrence # (Auto) 1000 H (0-900) /uL Eos # (Auto) 100 (0-450) /uL Baso # (Auto) 0 (0-100) /uL Sodium 134 L (137-145) mmol/L Potassium 4.1 (3.4-5.1) mmol/L Chloride 104 (98-107) mmol/L Carbon Dioxide 24 (22-32) mmol/L BUN 15 (9-20) mg/dL Creatinine 0.81 (0.66-1.25) mg/dL Estimated GFR > 60 (>60) mL/min BUN/Creatinine Ratio 18.5 (6-22) Glucose 139 H (80-110) mg/dL Lactate 1.2 (0.7-2.1) mmol/L Calcium 9.4 (8.4-10.2) mg/dL Total Bilirubin 0.8 (0.2-1.3) mg/dL AST 26 (17-59) IU/L ALT 33 (<50) IU/L Alkaline Phosphatase 47 (38-126) U/L Total Creatine Kinase 43 L (55-170) U/L Troponin I < 0.012 (0.01-0.034) ng/mL NT-Pro-B Natriuret Pep 186 (<450) pg/mL Total Protein 6.7 (6.3-8.2) g/dL Albumin 4.0 (3.5-5.0) g/dL Globulin 2.7 (1.7-4.1) g/dL Albumin/Globulin Ratio 1.5 (1.0-2.8) Lipase 43 (23-300) U/L Procalcitonin 0.061 (<0.5) ng/mL SARS-CoV-2 (PCR) Negative (Negative) Influenza A (RT-PCR) Flu a negative (NEGATIVE) Influenza B (RT-PCR) Flu b negative (NEGATIVE) RSV (PCR) Negative (Negative) Imaging Data Chest x-ray: Radiologist's Impression: PROCEDURE: XR CHEST 2V INDICATIONS: cough TECHNIQUE: 2 views of the chest were acquired. COMPARISON: [facility], CR, XR CHEST 2V, 06/04/2022, 10:01. [facility], CT, CT CHEST WO CON, 06/01/2024, 12:01. FINDINGS: Surgical changes and devices: None. Lungs and pleura: Mild generalized interstitial prominence can be seen. No dora consolidation can be seen. Low lung volumes are noted. This causes a crowded appearance to the lung markings and limits evaluation. No pneumothorax or pleural effusions are seen. Mediastinum: Mediastinal contours are normal. Heart size is normal. Bones and chest wall: No suspicious bony abnormalities. Age-appropriate bony degenerative changes are seen. Soft tissues appear unremarkable. IMPRESSION: Low lung volumes with mild generalized interstitial prominence. Mild pulmonary is suspected, although differential diagnosis includes viral infection and baseline parenchymal coarsening. No cardiomegaly. Dictated by: Gary Palomo M.D. on 06/09/2024 at 8:27 ECG Data Attestation: I personally reviewed and interpreted this ECG as follows: Interpretation: Sinus rhythm rate 72 MO interval 166 QRS 90 QTC 411 Q-wave noted in lead 3 MDM Narrative Medical decision making narrative: MDM CC: Cough left-sided chest pain Complicating co-morbidities: COPD pneumonia hyperlipidemia Medical records reviewed: Recent PCP visit, outpatient echo 06/01/2024 shows an EF of 60-65% does show some overall moderate aortic stenosis. CT chest, shows interval development of spiculated patchy opacity in right over lobe stable borderline mediastinal lymph nodes suggestive of interstitial disease Differential considered: Pneumonia congestive heart failure viral illness COPD exacerbation Exam documented above, pertinent findings include: Tender left anterior ribs to palpation breath sounds are clear no respiratory distress left lower leg more swollen than right but chronic Lab Test results independently reviewed as above. Pertinent findings: WBC 12, lactate 1.2 procalcitonin 0.061 Respiratory panel negative Sodium 134 potassium 4.1 chloride 104 carbon dioxide 24 BUN 15 creatinine 0.81 AST 26 ALT 33 alk-phos 47 Troponin negative BNP 186 Independently reviewed EKG as above sinus rhythm without new ischemia Imaging studies independently reviewed: Chest x-ray low lung volumes mild pulmonary is suspected no cardiomegaly Consultations: None Treatments: Tylenol Re-evaluations: Patient not having any increasing shortness of breath Tylenol did help a little with his left-sided chest discomfort Discussion: 74-year-old male presenting today with increasing cough and shortness of breath. He does have reproducible left anterior rib pain which is musculoskeletal. He is mild leukocytosis of 12. Chest x-ray does show mild interstitial prominence but no actual consolidation. Viral panel is also negative. I do think reasonable to treat patient for pneumonia he has had ongoing cough viral panel is negative with mild leukocytosis. He does not have evidence of sepsis or hypoxia. Does not meet admission criteria at this time. Discharge Plan Departure Patient Disposition: Home Clinical Impression: Pneumonia Instructions: DI for Pneumonia -- Adult Activity Restrictions/Additional Instructions: *You have been diagnosed with pneumonia *What to do: At this time increase fluids as tolerated rest as needed *Continue to take medications as directed Cefdinir 300 mg twice a day for 5 days Z-Hilario take as directed for 5 days *Follow up with your primary care provider in 2-3 days or call [phone] *Return to ER if you should have increasing weakness cough chest pain or any new, worsening or concerning symptoms Prescriptions: New azithromycin 250 mg tablet See Rx Instructions PO .COMPLEX Qty: 6 0RF Rx Instructions: For 250 mg dose pack: take 500 mg today (day 1), then 250 mg for 4 days (days 2-5) cefdinir 300 mg capsule 300 mg PO Q12H Qty: 10 0RF No Action lisinopril 40 mg tablet 40 mg PO BEDTIME Qty: 90 3RF Rx Instructions: 40 mg orally ;20 mg in the am and 40 mg in the evening famotidine 40 mg tablet See Rx Instructions .ROUTE .COMPLEX Qty: 90 3RF Dose Instruction: take 1 tablet by mouth twice a day Rx Instructions: take 1 tablet by mouth twice a day terazosin 2 mg capsule 2 mg PO BID Qty: 180 3RF hydrocodone-acetaminophen 10-325 mg tablet 1 tab PO BID PRN (Reason: pain) Qty: 60 0RF hydrocodone-acetaminophen 10-325 mg tablet 1 tab PO BID PRN (Reason: pain) Qty: 60 0RF hydrocodone-acetaminophen 10-325 mg tablet 1 tab PO BID PRN (Reason: pain) Qty: 60 0RF atenolol 25 mg tablet 25 mg PO BID Qty: 180 3RF spironolactone 25 mg tablet 25 mg PO DAILY celecoxib [Celebrex] 200 mg capsule 200 mg PO DAILY Qty: 30 2RF Referrals: Marv Haynes MD [Primary Care Provider] - Stand Alone Forms: Patient Portal/API/Survey
[2024-06-09] MEDS: ACETAMINOPHEN 325 MG TABLET 975 MG PO (10:29)
--- NOTE | 2024-06-09 10:30 | EKG_ITS ---
[place] [id number] [place] [id number] Test Date: 2024-06-09 Pat Name: Catrachito Luna Jr Department: [facility] Room: Gender: Male [employer]: : 1950 Requested By: Order Number: [id number] Reading MD: Devin Silver MD Measurements Intervals Napoleon Rate: 72 P: 19 PA: 166 QRS: 12 QRSD: 90 T: 10 QT: 376 QTc: 411 Interpretive Statements Normal sinus rhythm Inferior infarct , age undetermined Electronically Signed On 06-10-2024 8:47:37 PST by Devin Silver MD
[2024-06-09 10:34] VITALS: BP 135/63; PULSE 73; RESP 18; O2SAT 96
[2024-06-09 10:50] LABS: Add Manual Diff / Slide Review NO; Basophils Absolute Auto 0 /uL (0-100); Basophils Percent Auto 0.3 % (0-2); Eosinophils Absolute Auto 100 /uL (0-450); Eosinophils Percent Auto 0.6 % (2-4); Hematocrit 37.6 % (41-53); Hemoglobin 12.9 g/dL (13.5-17.5); Lymphocytes Absolute Auto 1200 /uL (1100-4500); Mean Corpuscular HGB Conc 34.3 % (30-36); Mean Corpuscular Volume 90.3 fL (80-100); Monocytes Absolute Auto 1000 /uL (0-900); Monocytes Percent Auto 8.6 % (3-14); Neutrophils Absolute Auto 9700 /uL (1500-7000); Neutrophils Percent Auto 80.5 % (50-75); Platelet Count 161 X10^3/uL (150-400); Red Blood Cell Count 4.16 X10^6/uL (4.5-5.9); Red Cell Distribution Width 13.2 % (11.6-14.8); White Blood Cell Count 12.1 X10^3/uL (4.5-11.0)
[2024-06-09 11:01] LABS: Alanine Aminotransferase 33 IU/L (<50); Albumin Globulin Ratio 1.5 (1.0-2.8); Alkaline Phosphatase 47 U/L (38-126); Aspartate Aminotransferase 26 IU/L (17-59); BUN Creatinine Ratio 18.5 (6-22); Bilirubin Total 0.8 mg/dL (0.2-1.3); Blood Urea Nitrogen 15 mg/dL (9-20); Calcium 9.4 mg/dL (8.4-10.2); Carbon Dioxide 24 mmol/L (22-32); Chloride 104 mmol/L (98-107); Creatine Kinase 43 U/L (55-170); Estimated Glomerular Filt Rate > 60 mL/min (>60); Globulin 2.7 g/dL (1.7-4.1); Glucose 139 mg/dL (80-110); HEMOLYSIS 21 (0-50); Lipase 43 U/L (23-300); Potassium 4.1 mmol/L (3.4-5.1); Sodium 134 mmol/L (137-145); Total Protein 6.7 g/dL (6.3-8.2)
[2024-06-09 11:02] LABS: Lactate (Lactic Acid) 1.2 mmol/L (0.7-2.1)
[2024-06-09 11:14] LABS: NT-proBNP (BNP-Adult 18+) 186 pg/mL (<450); Troponin I < 0.012 ng/mL (0.01-0.034)
[2024-06-09 11:18] LABS: Procalcitonin 0.061 ng/mL (<0.5)
[2024-06-09 12:00] VITALS: BP 108/60; PULSE 73; RESP 15; O2SAT 94
[2024-06-09 12:30] VITALS: BP 109/58
[2024-06-09 12:40] LABS: Influenza A - CEPHEID Flu A NEGATIVE (NEGATIVE); Influenza B - CEPHEID Flu B NEGATIVE (NEGATIVE); Respiratory Syncytial Virus Negative (Negative)
[2024-06-09 12:46] LABS: COVID-19 CEPHEID 4-PLEX PCR Negative (Negative)
[2024-06-09 13:00] VITALS: BP 105/58; PULSE 62; RESP 20; O2SAT 93
[2024-06-09 13:09] VITALS: BP 117/60; PULSE 67; RESP 21; O2SAT 95
== END 2024-06-09 13:33 | disposition home or self-care (01) ==
PROVIDERS: Emergency Provider Emergency Medicine; PCP Family Medicine
DX: J18.9 Pneumonia, unspecified organism (principal); R06.02 Shortness of breath; R07.9 Chest pain, unspecified; R07.81 Pleurodynia
CPT/HCPCS: 0241U; 36415; 71046; 80053; 82550; 83605; 83690; 83880; 84145; 84484; 85025; 87040; 93005; 93010; 99284

== ENCOUNTER 2024-07-05 12:08 | Outpatient (CLI) | payer MEDICARE, SELFPAY ==
[2024-02-01 17:40] VITALS: BMI 27.6
[2024-07-05] VITALS (10 sets, daily range): BP systolic 100–147; BP diastolic 55–71; PULSE 53–67; RESP 14–20; TEMP 36.4; O2SAT 96–100
--- NOTE | 2024-07-05 12:09 | DI.RAD.S_ITS ---
PROCEDURE: PAIN L INTERLAMINAR/CAUDAL INJ INDICATIONS: para Right L5/S1 TL JANETH COMPARISON: [facility], , PAIN L INTERLAMINAR/CAUDAL INJ, 10/06/2022, 10:42. FINDINGS/IMPRESSION: Fluoroscopic spot filming was performed to verify placement of spinal needles at the L5-S1 level(s), as labeled on the films. Appropriate location(s) of the needle tip(s) was confirmed by injection of iodinated contrast. Dictated by: Danilo Flynn M.D. on 07/05/2024 at 15:14 Approved by: Danilo Flynn M.D. on 07/05/2024 at 15:15
[2024-07-05] MEDS: MIDAZOLAM 2 MG/2 ML VIAL 1 MG IV (13:44)
[2024-07-05] MEDS: BUPIVACAINE 0.25% (PF) VIAL 2 ML INJ (13:48)
[2024-07-05] MEDS: iopamidoL 15 ML VIAL 3 ML INJ (13:49)
[2024-07-05] MEDS: BETAMETHASONE 30 MG/5 ML MDV 12 MG INJ (13:49)
[2024-07-05] MEDS: DEXAMETHASONE 10 MG/ML VIAL INJ (13:49)
[2024-07-05] MEDS: BETAMETHASONE 30 MG/5 ML MDV 6 MG INJ (13:52)
--- NOTE | 2024-07-05 13:55 | P.PCN_ITS ---
Date/Time/Diagnoses Date of procedure: 07/05/24 Time of procedure: 13:55 Pre-procedure diagnosis: 1. HNP WITH RADICULAR FEATURES, 2. MULTILEVEL CENTRAL STENOSIS, Post-procedure diagnosis: same Procedure Notes Procedure: 1. FLUOROSCOPICALLY GUIDED CONTRAST CONTROLLED INTERLAMINAR EPIDURAL STEROID INJECTION - L5/S1 Indications: Catrachito is referred by Dr. Haynes for treatment of Bilateral Foraminal Stenosis L>R LE symptoms. Physician: Renaldo Agosto Total Fluoroscopy time (seconds): 4 Total sedation minutes: 10 Complications: none Procedure in detail & Post-procedure care: FINDINGS Multilevel Central Spinal Stenosis with Nerve Root Compression DESCRIPTION OF PROCEDURE Fluoroscopically guided, contrast-controlled L5/S1 translaminar epidural steroid injection. Following review of allergy and review of potential side effects and complications, including, but not necessarily limited to, infection, allergic reaction, local tissue breakdown, temporary as well as permanent nerve injury, paralysis, stroke and possible , the patient indicated that the patient understood and agreed to proceed. An informed consent document was signed by the patient, witnessed by a nurse, and placed in the patient's chart. Additionally, other treatment options including modalities, medications, and physical therapy were reviewed with the patient. After review of previous anaesthesic history and IV conscious sedation the patient was deemed safe to proceed with today?s procedure with IV conscious sedation as ASA class II designation. Safety time-out was performed to confirm patient ID, procedure to be performed and site of procedure. IV sedation was accomplished with a combination of 1mg of Versed administered by the RN after DO order, titrated to patient comfort during the course of the procedure while the patient remained responsive to all verbal commands. In the prone position, following sterile prep and drape of the lumbar region, the L5/S1 translaminar space was identified fluoroscopically. The skin was anesthetized via a 25-gauge, 1.5-inch needle with 1% lidocaine solution. At this point, a 22-gauge short bevel spinal needle was atraumatically introduced and advanced under fluoroscopic guidance into the region of the L5/S1 translaminar space. Depth was confirmed on lateral view. Radiological data, including multiple fluoroscopic views of the lumbar spine, reveal a spinal needle at the L5/S1 translaminar space. Lateral views then show placement of the needle in the epidural space. Subsequent views show contrast material flowing superiorly and inferiorly in the epidural space. No vascular or intrathecal uptake is observed. At this point, using loss of resistance technique with saline and air, the epidural space was entered. This was confirmed following negative aspiration with injection of approximately 1.5cc of Isovue 200, showing excellent epidural flow without vascular or intrathecal uptake. At this point, 1 cc of 1% lidoca ine solution combined with 2cc or 10mg of dexamethasone and 6mg of betamethasone was injected without incident. The patent tolerated the procedure without signs of symptoms of complications prior to transfer to the recovery area for further monitoring. The patient was then transferred to the recovery area where they were observed for an appropriate period of time after the injection. The patient reported a VAS score of 6 prior to the procedure and a post-procedure VAS of 0. POST OP INSTRUCTIONS The patient was provided a Pain Log to continue to record their response to the target-specific procedure prior to follow-up visit with their referring physician. Additionally, specific post-injection care instructions and a contact number to our office were provided if concerns arise regarding possible complications associated with the procedure are suspected.
== END 2024-07-05 14:18 | disposition home or self-care (01) ==
LOC: RAD 12:08
PROVIDERS: PCP Family Medicine; Referring Provider Physical Medicine & Rehabilitation; Visit Provider Physical Medicine & Rehabilitation
DX: M51.17 Intervertebral disc disorders with radiculopathy, lumbosacral region (principal); M48.07 Spinal stenosis, lumbosacral region
CPT/HCPCS: 62323; 99152; J0702; J1100; J2250; J3490

== ENCOUNTER → 2024-08-30 09:30 | Outpatient (CLI) | payer MEDICARE, SELFPAY ==
[2024-02-01 17:40] VITALS: BMI 27.6
--- NOTE | 2024-08-30 09:31 | DI.CT.S_ITS ---
PROCEDURE: CT CHEST WO CON INDICATIONS: pulmonary nodule TECHNIQUE: Noncontrast 5 mm thick sections acquired from the pulmonary apices to the posterior costophrenic angles. 1 mm lung window, 5 mm thick coronal and sagittal and 7 mm axial MIP reformats were then acquired. For radiation dose reduction, the following was used: automated exposure control, adjustment of mA and/or kV according to patient size. COMPARISON: [facility], CT, CT CHEST WO CON, 11/06/2022, 10:52. [facility], CT, CT ANGIO CHEST PE PROTOCOL, 04/15/2022, 21:52. [facility], CT, CT CHEST WO CON, 06/01/2024, 12:01. [facility], CT, CT CHEST WO CON, 05/11/2023, 13:27. FINDINGS: Image quality: Diagnostic. Lower Neck: No enlarged lymph nodes. Thyroid: No thyroid nodules which require sonographic follow up, per consensus guidelines. Axillae: No enlarged lymph nodes. Chest Wall: Unremarkable. Bones: Unremarkable. Lungs and Pleura: No pneumothorax or pleural effusions. Emphysematous change which is both centrilobular and bullous in type. An area of bullous emphysema at the lateral right upper lobe head developed focal alveolar infiltration on most recent chest CT scanning 06/01/24. That appears less pronounced currently, suggesting inflammatory etiology. No pulmonary nodule has developed elsewhere suggestive of malignancy. Heart: Heart size is normal. No pericardial effusion. Thoracic Vessels: The aorta and pulmonary arteries demonstrate normal size. Mediastinum and Mally: No enlarged lymph nodes. Esophagus: No wall thickening. No hiatal hernia. Upper Abdomen: Visualized upper abdomen solid organs and bowel loops appear normal. IMPRESSION: 1. A new area of alveolar infiltration that appeared mildly spiculated had developed at the posterior border of an area of lateral right upper lobe bullous emphysema. The diminished prominence of this on the current evaluation suggest inflammatory etiology. Recommend additional 6 month follow-up noncontrast CT scan through this area to confirm benign etiology. 2. Moderately severe emphysematous change including both centrilobular and bullous emphysema. Presuming longstanding smoking history it is recommended that the patient be considered for in II in a yearly screening program for early detection of lung carcinoma. The follow-up CT scan in 6 months could represent entrance into that screening program. Dictated by: Andrew Montague M.D. on 08/30/2024 at 11:51 Approved by: Andrew Montague M.D. on 08/30/2024 at 12:00
[2024-08-30 09:57] LABS: Add Manual Diff / Slide Review NO; Basophils Absolute Auto 0 /uL (0-100); Basophils Percent Auto 0.3 % (0-2); Eosinophils Absolute Auto 100 /uL (0-450); Eosinophils Percent Auto 1.9 % (2-4); Hematocrit 38.6 % (41-53); Lymphocytes Absolute Auto 1300 /uL (1100-4500); Lymphocytes Percent Auto 18.9 % (25-40); Mean Corpuscular HGB Conc 33.8 % (30-36); Mean Corpuscular Hemoglobin 30.5 PG (26-34); Mean Corpuscular Volume 90.3 fL (80-100); Monocytes Absolute Auto 600 /uL (0-900); Monocytes Percent Auto 8.3 % (3-14); Neutrophils Absolute Auto 4800 /uL (1500-7000); Neutrophils Percent Auto 70.6 % (50-75); Platelet Count 161 X10^3/uL (150-400); Red Blood Cell Count 4.27 X10^6/uL (4.5-5.9); White Blood Cell Count 6.7 X10^3/uL (4.5-11.0)
[2024-08-30 10:38] LABS: Alanine Aminotransferase 41 IU/L (<50); Albumin 4.1 g/dL (3.5-5.0); Albumin Globulin Ratio 1.7 (1.0-2.8); Alkaline Phosphatase 54 U/L (38-126); Aspartate Aminotransferase 34 IU/L (17-59); BUN Creatinine Ratio 20.4 (6-22); Bilirubin Total 0.8 mg/dL (0.2-1.3); Blood Urea Nitrogen 19 mg/dL (9-20); Calcium 9.8 mg/dL (8.4-10.2); Carbon Dioxide 23 mmol/L (22-32); Chloride 105 mmol/L (98-107); Estimated Glomerular Filt Rate > 60 mL/min (>60); Globulin 2.4 g/dL (1.7-4.1); Glucose 113 mg/dL (80-110); HEMOLYSIS < 15 (0-50); Potassium 4.9 mmol/L (3.4-5.1); Sodium 138 mmol/L (137-145); Total Protein 6.5 g/dL (6.3-8.2)
== END ==
PROVIDERS: PCP Family Medicine; Referring Provider Family Medicine; Visit Provider Family Medicine
DX: I10 Essential (primary) hypertension (principal); R91.8 Other nonspecific abnormal finding of lung field; J43.2 Centrilobular emphysema; J32.9 Chronic sinusitis, unspecified
CPT/HCPCS: 36415; 71250; 80053; 85025

== ENCOUNTER 2024-11-09 07:32 | Day surgery (SDC) | payer MEDICARE, SELFPAY ==
[2024-02-01 17:40] VITALS: BMI 27.6
[2024-11-09] VITALS (8 sets, daily range): BP systolic 77–149; BP diastolic 50–79; PULSE 58–81; RESP 16; TEMP 36.2–36.6; O2SAT 93–97
[2024-11-09] MEDS: ALBUTEROL/IPRATROPIUM 3 ML AMPUL INH (08:29)
[2024-11-09] MEDS: LACTATED RINGERS 1,000 ML 42 ML IV (08:32)
--- NOTE | 2024-11-09 08:41 | PM.PREOP ---
Pre-operative Note COVID-19 COVID-19 status: Not tested Interval Note History & Physical reviewed/Exam performed by Physician: Yes Changes to H&P: No ASA Class (for procedural sedation): II
--- NOTE | 2024-11-09 09:37 | PM.OP.COLON ---
Operative Date/Time/Diagnoses Date of procedure: 11/09/24 Time of procedure: 09:37 Pre-op diagnosis: History of polyps Post-op diagnosis: same Procedure & Clinicians Study performed: Colonoscopy Same procedure as scheduled: Yes Indications: History of polyps Surgeon: Renaldo Vences Procedure Notes Procedure in detail: Patient was placed on the gurney in the endoscopy suite in the left lateral decubitus position. IV sedation was administered. When an adequate level had been achieved the procedure was begun. Time-out protocol was observed. A 2 m flexible fiberoptic colonoscope was passed transanally into the rectum and around the to the cecum under direct endoscopic vision. Prep was adequate. Exam was performed retrograde. Cecum was positively identified at the ileocecal valve and tenia coli confluence. The cecum and ascending colon were without evidence of AVM, polyp, ulceration or flat adenoma. Hepatic flexure transverse colon and splenic flexure were without evidence of mucosal abnormality. Similarly the descending colon was unremarkable in appearance and there were no mucosal abnormalities. The sigmoid colon was remarkable in appearance for tortuosity and a few wide mouth diverticuli. There were no other mucosal abnormalities of the sigmoid colon. The rectum was normal as the scope was withdrawn. Procedure was terminated. The patient tolerated the procedure well and was transported to recovery in good condition. Scope withdrawal time: 922 Findings: divertiulosis Specimen(s): none sent Complications: none Impression: Normal colon Post-procedure Recommendations: Colonoscopy in 5 years Plan for aftercare: Discharge to home Follow up: as needed Disposition: PACU
== END 2024-11-09 10:20 | disposition home or self-care (01) ==
PROVIDERS: PCP Family Medicine; Referring Provider Surgery; Visit Provider Surgery
PROC: 0DJD8ZZ Inspection of Lower Intestinal Tract, Via Natural or Artificial Opening Endoscopic (ICD-10-PCS; CPT 45378; principal; 2024-11-09 09:15)
DX: Z12.11 Encounter for screening for malignant neoplasm of colon (principal); Z86.0100 Personal history of colon polyps, unspecified; K57.30 Diverticulosis of large intestine without perforation or abscess without bleeding
CPT/HCPCS: G0105; J2704

== ENCOUNTER → 2024-12-10 14:54 | Outpatient (CLI) | payer MEDICARE, SELFPAY ==
[2024-02-01 17:40] VITALS: BMI 27.6
== END ==
PROVIDERS: PCP Family Medicine; Referring Provider Student in an Organized Health Care Education/Training Program; Visit Provider Student in an Organized Health Care Education/Training Program
DX: J43.8 Other emphysema (principal); R06.02 Shortness of breath; Z87.891 Personal history of nicotine dependence
CPT/HCPCS: 94060; 94726; 94729

== ENCOUNTER → 2025-02-06 12:46 | Outpatient (CLI) | payer MEDICARE, SELFPAY ==
[2024-02-01 17:40] VITALS: BMI 27.6
--- NOTE | 2025-02-06 12:47 | DI.RAD.S_ITS ---
PROCEDURE: XR LUMBAR SPINE MIN 4V INDICATIONS: BACK PAIN TECHNIQUE: Five views of the lumbar spine were acquired, including bilateral oblique views. COMPARISON: [facility], , XR LUMBAR SPINE MIN 4V, 08/17/2022, 10:46. FINDINGS: Bones: 5 nonrib-bearing vertebrae are present. There is mild leftward curvature of thoracolumbar spine with apex at L1 level. Loss of disc height, degenerative endplate changes and bilateral facet hypertrophic changes are noted throughout cervical spine more notably at L4-5 and L5-S1 levels. There is 7 mm anterolisthesis of L5 on S1. No vertebral body compression fractures. No suspicious bony lesions. Soft tissues: Overlying bowel gas pattern is normal. No suspicious soft tissue calcifications. Oblique images: No definite pars defects. Suggestion of bilateral bony foraminal stenosis at L4-5 and L5-S1 levels. IMPRESSION: 1. 7 mm anterolisthesis of L5 on S1. Mild levoscoliosis of thoracolumbar spine centered at L1 level. No acute vertebral body compression fracture. Moderate spondylitic changes throughout lumbar spine. 2. No definite pars defects. Bilateral bony foraminal stenosis are noted at L4- 5 and L5-S1 levels seen on oblique views. Dictated by: Stephen Ayers M.D. on 02/06/2025 at 14:16 Approved by: Stephen Ayers M.D. on 02/06/2025 at 14:17
== END ==
PROVIDERS: PCP Family Medicine; Referring Provider Physical Medicine & Rehabilitation; Visit Provider Physical Medicine & Rehabilitation
DX: M47.816 Spondylosis without myelopathy or radiculopathy, lumbar region (principal); M51.362 Other intervertebral disc degeneration, lumbar region with discogenic back pain and lower extremity pain; M43.17 Spondylolisthesis, lumbosacral region; M41.9 Scoliosis, unspecified; M48.061 Spinal stenosis, lumbar region without neurogenic claudication; M48.07 Spinal stenosis, lumbosacral region
CPT/HCPCS: 72110

== ENCOUNTER → 2025-03-07 08:11 | Outpatient (CLI) | payer MEDICARE, SELFPAY ==
[2024-02-01 17:40] VITALS: BMI 27.6
--- NOTE | 2025-03-07 08:13 | DI.CT.S_ITS ---
PROCEDURE: CT CHEST WO CON INDICATIONS: Futher eval of emphysema TECHNIQUE: Noncontrast 5 mm thick sections acquired from the pulmonary apices to the posterior costophrenic angles. 1 mm lung window, 5 mm thick coronal and sagittal and 7 mm axial MIP reformats were then acquired. For radiation dose reduction, the following was used: automated exposure control, adjustment of mA and/or kV according to patient size. COMPARISON: [facility], CT, CT CHEST WO CON, 08/30/2024, 9:41. [facility], CT, CT CHEST WO CON, 06/01/2024, 12:01. FINDINGS: Image quality: Diagnostic. Lower Neck: No enlarged lymph nodes. Thyroid: No thyroid nodules which require sonographic follow up, per consensus guidelines. Axillae: No enlarged lymph nodes. Chest Wall: Unremarkable. Bones: Unremarkable. Lungs and Pleura: No pneumothorax or pleural effusions. No consolidation or suspicious nodules. An area of inflammatory change at the posterior border of a region of bullous emphysema at the lateral right upper lobe near the apex continues to improve, sequentially, from 06/01/24 to 08/30/24, to the current study. No new abnormality has developed. Heart: Heart size is normal. No pericardial effusion. Thoracic Vessels: The aorta and pulmonary arteries demonstrate normal size. Mediastinum and Mally: No enlarged lymph nodes. Esophagus: No wall thickening. No hiatal hernia. Upper Abdomen: Visualized upper abdomen solid organs and bowel loops appear normal. IMPRESSION: Continued improvement in an area of alveolar inflammation at the posterior border of right upper lobe bullous emphysematous change. The appearance of the lungs is suggestive of a longstanding smoking history and therefore it may be warranted to enroll the patient in a screening program for early detection of lung carcinoma. Currently no malignancy is found. Dictated by: Andrew Montague M.D. on 03/07/2025 at 11:31 Approved by: Andrew Montague M.D. on 03/07/2025 at 11:35
[2025-03-07 08:46] LABS: Add Manual Diff / Slide Review NO; Hematocrit 38.4 % (41-53); Hemoglobin 13.3 g/dL (13.5-17.5); Lymphocytes Absolute Auto 1700 /uL (1100-4500); Mean Corpuscular HGB Conc 34.6 % (30-36); Mean Corpuscular Hemoglobin 31.7 PG (26-34); Mean Corpuscular Volume 91.6 fL (80-100); Platelet Count 175 X10^3/uL (150-400)
[2025-03-07 09:27] LABS: Alanine Aminotransferase 36 IU/L (<50); Albumin 4.3 g/dL (3.5-5.0); Albumin Globulin Ratio 1.6 (1.0-2.8); Alkaline Phosphatase 55 U/L (38-126); Blood Urea Nitrogen 25 mg/dL (9-20); Calcium 10.2 mg/dL (8.4-10.2); Carbon Dioxide 25 mmol/L (22-32); Chloride 106 mmol/L (98-107); Cholesterol 104 mg/dL (140-199); Estimated Glomerular Filt Rate > 60 mL/min (>60); Globulin 2.7 g/dL (1.7-4.1); Glucose 129 mg/dL (70-99); HDL Cholesterol 53 mg/dL (40-60); HEMOLYSIS < 15 (0-50); Potassium 5.0 mmol/L (3.4-5.1); Sodium 139 mmol/L (137-145); Total Protein 7.0 g/dL (6.3-8.2); Triglycerides 63 mg/dL (35-150)
[2025-03-07 09:58] LABS: TSH w/ Reflex to FT4 2.64 uIU/mL (0.47-4.68)
== END ==
LOC: CT 08:11
PROVIDERS: PCP Family Medicine; Referring Provider Family Medicine; Visit Provider Family Medicine
DX: J43.9 Emphysema, unspecified (principal); I11.0 Hypertensive heart disease with heart failure; Z12.5 Encounter for screening for malignant neoplasm of prostate; M06.9 Rheumatoid arthritis, unspecified
CPT/HCPCS: 36415; 71250; 80053; 80061; 82043; 82570; 84443; 85025; G0103

== ENCOUNTER 2025-03-07 08:33 | Outpatient (CLI) | payer MEDICARE, SELFPAY ==
[2024-02-01 17:40] VITALS: BMI 27.6
[2025-03-07] VITALS (7 sets, daily range): BP systolic 101–153; BP diastolic 61–75; PULSE 52–67; RESP 14–19; TEMP 36.4; O2SAT 93–99
[2025-03-07] MEDS: MIDAZOLAM 2 MG/2 ML VIAL IV (10:56)
[2025-03-07] MEDS: BETAMETHASONE 30 MG/5 ML MDV 12 MG INJ (11:00)
--- NOTE | 2025-03-07 11:12 | P.PCN_ITS ---
Date/Time/Diagnoses Date of procedure: 03/07/25 Time of procedure: 11:12 Pre-procedure diagnosis: 1. HNP WITH RADICULAR FEATURES, 2. MULTILEVEL CENTRAL STENOSIS, Post-procedure diagnosis: same Procedure Notes Procedure: 1. FLUOROSCOPICALLY GUIDED CONTRAST CONTROLLED INTERLAMINAR EPIDURAL STEROID INJECTION - L5/S1 Indications: Catrachito is referred by Dr. Haynes for treatment of Bilateral Foraminal Stenosis L>R LE symptoms. Physician: Renaldo Agosto Total Fluoroscopy time (seconds): 13 Total sedation minutes: 12 Complications: none Procedure in detail & Post-procedure care: FINDINGS Multilevel Central Spinal Stenosis with Nerve Root Compression DESCRIPTION OF PROCEDURE Fluoroscopically guided, contrast-controlled L5/S1 translaminar epidural steroid injection. Following review of allergy and review of potential side effects and complications, including, but not necessarily limited to, infection, allergic reaction, local tissue breakdown, temporary as well as permanent nerve injury, paralysis, stroke and possible , the patient indicated that the patient understood and agreed to proceed. An informed consent document was signed by the patient, witnessed by a nurse, and placed in the patient's chart. Additionally, other treatment options including modalities, medications, and physical therapy were reviewed with the patient. After review of previous anaesthesic history and IV conscious sedation the patient was deemed safe to proceed with today?s procedure with IV conscious sedation as ASA class II designation. Safety time-out was performed to confirm patient ID, procedure to be performed and site of procedure. IV sedation was accomplished with a combination of 2mg of Versed administered by the RN after DO order, titrated to patient comfort during the course of the procedure while the patient remained responsive to all verbal commands. In the prone position, following sterile prep and drape of the lumbar region, the L5/S1 translaminar space was identified fluoroscopically. The skin was anesthetized via a 25-gauge, 1.5-inch needle with 1% lidocaine solution. At this point, a 22-gauge short bevel spinal needle was atraumatically introduced and advanced under fluoroscopic guidance into the region of the L5/S1 translaminar space. Depth was confirmed on lateral view. Radiological data, including multiple fluoroscopic views of the lumbar spine, reveal a spinal needle at the L5/S1 translaminar space. Lateral views then show placement of the needle in the epidural space. Subsequent views show contrast material flowing superiorly and inferiorly in the epidural space. No vascular or intrathecal uptake is observed. At this point, using loss of resistance technique with saline and air, the epidural space was entered. This was confirmed following negative aspiration with injection of approximately 1.5cc of Isovue 200, showing excellent epidural flow without vascular or intrathecal uptake. At this point, 1cc of 0.25% mar christiane solution combined with 3cc or 10mg of dexamethasone and 12mg of betamethasone was injected without incident. The patent tolerated the procedure without signs of symptoms of complications prior to transfer to the recovery area for further monitoring. The patient was then transferred to the recovery area where they were observed for an appropriate period of time after the injection. The patient reported a VAS score of 6 prior to the procedure and a post-procedure VAS of 0. POST OP INSTRUCTIONS The patient was provided a Pain Log to continue to record their response to the target-specific procedure prior to follow-up visit with their referring physician. Additionally, specific post-injection care instructions and a contact number to our office were provided if concerns arise regarding possible complications associated with the procedure are suspected.
--- NOTE | 2025-03-07 11:18 | DI.RAD.S_ITS ---
PROCEDURE: XR KNEE RT 3V INDICATIONS: Right knee pain and djd TECHNIQUE: 3 views of the knee were acquired. COMPARISON: [facility], CR, XR KNEE LT 3V, 12/13/2023, 12:04. FINDINGS: Bones: No fractures or dislocations. Mild osteoarthritic changes with osteophytosis and mild medial compartment joint space narrowing. No suspicious bony lesions. Soft tissues: Small to moderate joint effusion. No suspicious soft tissue calcifications. Atherosclerotic vascular calcifications. IMPRESSION: Mild osteoarthritic changes are redemonstrated. No acute osseous abnormalities. Dictated by: Maxi Cavazos M.D. on 03/08/2025 at 14:54 Approved by: Maxi Cavazos M.D. on 03/08/2025 at 14:56
== END 2025-03-07 11:48 | disposition home or self-care (01) ==
LOC: RAD 08:33
PROVIDERS: PCP Family Medicine; Referring Provider Physical Medicine & Rehabilitation; Visit Provider Physical Medicine & Rehabilitation
DX: M51.17 Intervertebral disc disorders with radiculopathy, lumbosacral region (principal); M48.07 Spinal stenosis, lumbosacral region; M17.11 Unilateral primary osteoarthritis, right knee; M25.461 Effusion, right knee; J43.9 Emphysema, unspecified; I11.0 Hypertensive heart disease with heart failure; Z12.5 Encounter for screening for malignant neoplasm of prostate; M06.9 Rheumatoid arthritis, unspecified
CPT/HCPCS: 36415; 62323; 71250; 73562; 80053; 80061; 82043; 82570; 84443; 85025; 99152; G0103; J0702; J1100; J2250

== ENCOUNTER → 2025-05-24 13:33 | Outpatient (CLI) | payer MEDICARE, SELFPAY ==
[2024-02-01 17:40] VITALS: BMI 27.6
--- NOTE | 2025-05-24 13:34 | DI.ECHO.S_ITS ---
[facility]+ [facility] : : [id number] : : [place] : : [id number] : : Phone: [phone] Echocardiogram Report + + :Name: ARNULFO CANALES JR Study Date: 05/24/2025 Height: 73 in : :[facility] ReadingLocation: Weight: 215 lb : : Gender: Male BSA: 2.2 m2 : :: 1950 Age: 75 yrs BP: 138/79 mmHg: :Reason For Study: Aortic stenosis : :Ordering Physician: HARPER, : :LIZBETH Fuller Performed By: Cam Hartley : :Referring: LIZBETH SALEEM : + + Interpretation Summary Left ventricular wall thickness is borderline increased. The ejection fraction is estimated to be 60-65%. Normal diastolic function. The right ventricle is normal in size and function. There is mild mitral regurgitation. There is mild aortic regurgitation. The right ventricular systolic pressure is estimated to be at least 28 mmHg based on an estimated right atrial pressure of 3 mm Hg. Compared to the prior study 06/01/2024, the aortic valve gradient has slightly decreased. Procedure: A two-dimensional transthoracic echocardiogram with color flow and Doppler was performed. The study quality was technically adequate. Comparison is made with the echocardiogram of 06/01/2024. The patient was in normal sinus rhythm during the exam. Left Ventricle: The left ventricle is normal in size. Left ventricular wall thickness is borderline increased. Left ventricular systolic function is normal. The ejection fraction is estimated to be 60-65%. There are no focal wall motion abnormalities. Normal diastolic function. Right Ventricle: The right ventricle is normal in size and function. Atria: The left atrial size is normal. Right atrial size is normal. There is no Doppler evidence for an interatrial shunt. Mitral Valve: There is mild mitral annular calcification. The mitral valve leaflets appear mildly thickened. The mitral valve leaflets appear to open well. There is no mitral valve stenosis. There is mild mitral regurgitation. Aortic Valve: Aortic valve leaflets are not well visualized, heavily calcified. There is mild to moderate aortic stenosis. The peak aortic velocity is 2.6 m/sec. The aortic valve mean gradient is 16 mmHg. sev ratio: 0.34. There is mild aortic regurgitation. Tricuspid Valve: The tricuspid valve is not well visualized, but is grossly normal. There is trace tricuspid regurgitation. The right ventricular systolic pressure is estimated to be at least 28 mmHg based on an estimated right atrial pressure of 3 mm Hg. Pulmonic Valve: The pulmonic valve is not well seen, but is grossly normal. There is trace pulmonic regurgitation. Great Vessels: The aortic root is normal size. The ascending aorta is normal in size. The aortic arch could not be visualized. The pulmonary is not well visualized. The IVC is of normal diameter and collapses greater than 50% with a sniff. This suggests a low right atrial pressure of 3 mm Hg. Pericardium/ Pleura There is no pericardial effusion. MMode/2D Measurements & Calculations LVIDd: 4.3 cm LVOT diam: 2.3 cm LVIDs: 2.6 cm Ao root diam: 3.6 cm FS: 40.8 % asc Aorta Diam: 3.4 cm IVSd: 1.1 cm LVPWd: 1.1 cm LV barnett. diameter/BSA (cm/m^2): 1.9 LV sys. diameter/BSA (cm/m^2): 1.2 LA A2 area: 21.1 cm2 RA long axis: 6.0 cm LA A4 area: 26.1 cm2 RA area: 14.5 cm2 LA length (vol): 6.5 cm RA vol: 29.6 ml LA vol: 72.2 ml RA : 13.3 ml/m2 LA vol index: 32.5 ml/m2 IVC diam: 2.1 cm RVD1 (basal): 2.8 cm RVD2 (mid): 2.7 cm TAPSE: 3.0 cm Doppler Measurements & Calculations Ao V2 max: 262.4 cm/sec LVOT Max Joshua: 86.4 cm/sec Ao V2 mean: 188.0 cm/sec LV V1 max P.0 mmHg Ao max P.5 mmHg LV V1 VTI: 21.0 cm Ao mean P.5 mmHg ARLET(I,D): 1.5 cm2 Ao V2 VTI: 61.2 cm ARLET(V,D): 1.4 cm2 sev ratio: 0.34 ARLET indexed to BSA (cm^2/m^2): 0.67 AI P1/2t: 586.9 msec AI dec slope: 227.5 cm/sec2 MV E max joshua: 82.9 cm/sec TR max joshua: 250.5 cm/sec MV A max joshua: 89.6 cm/sec TR max P.1 mmHg MV E/A: 0.93 PA V2 max: 99.5 cm/sec Med Peak E' Joshua: 7.3 cm/sec PA V2 mean: 62.9 cm/sec E/E' med: 11.4 PA mean P.8 mmHg Lat Peak E' Joshua: 10.5 cm/sec PA pr(Accel): 36.6 mmHg E/E' lat: 7.9 E/e' average: 9.7 MV dec time: 0.17 sec SV(LVOT): 90.8 ml Reading Physician:03:01 PM
== END ==
LOC: ECHO 13:34
PROVIDERS: PCP Family Medicine; Referring Provider Internal Medicine Cardiovascular Disease; Visit Provider Internal Medicine Cardiovascular Disease
DX: I08.0 Rheumatic disorders of both mitral and aortic valves (principal)
CPT/HCPCS: 93306